=== PATIENT | male | born 1965 | race Caucasian/White ===

== ENCOUNTER 2017-11-22 11:20 | Inpatient (IN) | payer OTHER ==
[~2017-11-22] VITALS: Ht 177.8 cm; Wt 106.5 kg
[2017-11-22] VITALS (17 sets, daily range): BP systolic 102–174; BP diastolic 65–104; PULSE 77–120; RESP 12–24; TEMP 97.2–98; O2SAT 86–100
[~2017-11-22 11:20] MED LIST: ASPI81TA82 PO; MULT-65 PO; PREV15CA20 PO; Z.0.NO CURRENT MEDS
[2017-11-22] MEDS ORDERED: SODIUM CHLOR 0.9% 1000 ML INJ 1,000 ML IV SCH (11:40)
[2017-11-22] MEDS ORDERED: HYDROmorphone HCL PF 2 MG/ML VIAL IVS ONE (11:45)
[2017-11-22] MEDS ORDERED: SODIUM CHLORIDE 0.9% FLUSH 10 ML FLUSH IV FLUSH PRN ×4 (11:45→21:15)
[2017-11-22] MEDS ORDERED: ONDANSETRON ODT 4 MG TAB PO ONE (11:45)
--- NOTE | 2017-11-22 11:54 | PD ---
HPI Chief Complaint: Abdominal Pain Time Seen by Provider: 11:29 Travel History International Travel<30 days: No Contact w/Intl Traveler<30days: No Traveled to known affect area: No History of Present Illness HPI This patient complains of abdominal pain. It started a few weeks ago and is located in the left upper quadrant. He saw his physician for this and it was thought that he had an ulcer. He was going to get a GI referral but that has not happened yet. He has had no imaging. However yesterday the pain became excruciatingly worse. It comes in waves. Symptoms are severe. He has had nausea and vomiting. He had diarrhea yesterday evening. No fever. He has no alcohol or drug history. No history of abdominal surgeries or abdominal problems. No exacerbating factors. No alleviating factors. PFSH Past Medical History Arthritis: Yes Anxiety: No Cancer: No Cardiovascular Problems: No Diabetes: No Diminished Hearing: No Endocrine: No GERD: Yes Genitourinary: No Hypertension: No Immune Disorder: No Musculoskeletal: Yes Neurologic: No Psychiatric: No Reproductive: No Respiratory: No Thyroid Disease: No Past Surgical History Other Surgery: No Social History Alcohol Use: No Tobacco Use: Yes Substance Use: No Allergies-Medications (Allergen,Severity, Reaction): Coded Allergies: No Known Allergies (Unverified Adverse Reaction, Unknown, 11/22/17) Reported Meds & Prescriptions Reported Meds & Active Scripts Active Reported Multiple Vitamin 1 Tab 1 Tab PO DAILY Carafate (Sucralfate) 1 Gram Tab 1 Gm PO QID On empty stomach Hydrochlorothiazide 12.5 Mg Cap 12.5 Mg PO DAILY Protonix (Pantoprazole Sodium) 40 Mg Tab 40 Mg PO DAILY Review of Systems General / Constitutional: No: Fever Eyes: No: Visual changes HENT: No: Headaches Cardiovascular: No: Chest Pain or Discomfort Respiratory: No: Shortness of Breath Gastrointestinal: Positive: Nausea, Vomiting, Diarrhea, Abdominal Pain Genitourinary: No: Dysuria Musculoskeletal: No: Pain Skin: No Rash Neurologic: No: Weakness Psychiatric: No: Depression Endocrine: No: Polydipsia Hematologic/Lymphatic: No: Easy Bruising Physical Exam Narrative GENERAL: Well-nourished, well-developed patient with severe abdominal pain. SKIN: Focused skin assessment reveals no rash and nodules. Skin is Warm and dry. HEAD: Atraumatic. Normocephalic. EYES: Pupils equal and round. No scleral icterus. No injection or drainage. ENT: No nasal bleeding or discharge. Mucous membranes pink and moist. NECK: Trachea midline. No JVD. CARDIOVASCULAR: Regular rate and rhythm. No murmur appreciated. RESPIRATORY: No accessory muscle use. Clear to auscultation. Breath sounds equal bilaterally. GASTROINTESTINAL: Abdomen soft, obese, diffusely tender but worse in the left upper quadrant. hepatic and splenic margins not palpable. MUSCULOSKELETAL: No obvious deformities. No clubbing. No cyanosis. No edema. NEUROLOGICAL: Awake and alert. No obvious cranial nerve deficits. Motor grossly within normal limits. Normal speech. PSYCHIATRIC: Appropriate mood and affect; insight and judgment normal. Data Data Last Documented VS Vital Signs Date Time Temp Pulse Resp B/P (MAP) Pulse Ox O2 Delivery O2 Flow Rate FiO2 11/22/17 13:14 16 11/22/17 12:30 93 138/92 (107) 95 Room Air 11/22/17 11:25 97.2 Orders Orders Complete Blood Count With Diff (11/22/17 11:40) Comprehensive Metabolic Panel (11/22/17 11:40) Lipase (11/22/17 11:40) Prothrombin Time / Inr (Pt) (11/22/17 11:40) Act Partial Throm Time (Ptt) (11/22/17 11:40) Urinalysis - C+S If Indicated (11/22/17 11:40) Ct Abd/Pel W Iv Contrast(Rout) (11/22/17 11:40) Iv Access Insert/Monitor (11/22/17 11:40) Ecg Monitoring (11/22/17 11:40) Oximetry (11/22/17 11:40) NPO (11/22/17 11:40) Hydromorphone Pf Inj (Dilaudid Pf Inj) (11/22/17 11:45) Sodium Chlor 0.9% 1000 Ml Inj (Ns 1000 M (11/22/17 11:40) Sodium Chloride 0.9% Flush (Ns Flush) (11/22/17 11:45) Ondansetron Odt (Zofran Odt) (11/22/17 11:45) Iohexol 350 Inj (Omnipaque 350 Inj) (11/22/17 12:07) Hydromorphone Pf Inj (Dilaudid Pf Inj) (11/22/17 12:30) Lidocaine 2% Viscous (Xylocaine 2% Visco (11/22/17 13:00) Al-Mag Hy-Si 40-40-4 Mg/Ml Liq (Mag-Al P (11/22/17 13:00) Admit Order (Ed Use Only) (11/22/17 13:19) Place In Observation (11/22/17 ) Vital Signs (Adult) Q4H (11/22/17 13:17) Activity Oob Ad Tamika (11/22/17 13:17) Intake + Output KHADAR.QSHIFT (11/22/17 13:17) Diet Clear Liquid (11/22/17 Lunch) Sodium Chlor 0.9% 1000 Ml Inj (Ns 1000 M (11/22/17 13:17) Sodium Chloride 0.9% Flush (Ns Flush) (11/22/17 13:30) Sodium Chloride 0.9% Flush (Ns Flush) (11/22/17 21:00) Metoclopramide Inj (Reglan Inj) (11/22/17 13:30) Comprehensive Metabolic Panel (11/23/17 06:00) Complete Blood Count With Diff (11/23/17 06:00) Scd Bilateral/Knee High KHADAR.BID (11/22/17 13:17) Naloxone Inj (Narcan Inj) (11/22/17 13:30) Docusate Sodium-Senna (Valorie-Colace) (11/22/17 21:00) Magnesium Hydroxide Liq (Milk Of Magnesi (11/22/17 13:30) Sennosides (Senokot) (11/22/17 13:30) Bisacodyl Supp (Dulcolax Supp) (11/22/17 13:30) Lactulose Liq (Lactulose Liq) (11/22/17 13:30) Acetamin-Hydrocod 325-5 Mg ([place] 5-325 (11/22/17 13:30) Acetamin-Hydrocod 325-7.5 Mg ([place] 7.5 (11/22/17 13:30) Morphine Inj (Morphine Inj) (11/22/17 13:30) Consult Gastroenterology (11/22/17 ) Labs Laboratory Tests Test 11/22/17 11:35 White Blood Count 15.2 TH/MM3 Red Blood Count 5.95 MIL/MM3 Hemoglobin 17.8 GM/DL Hematocrit 53.6 % Mean Corpuscular Volume 90.1 FL Mean Corpuscular Hemoglobin 30.0 PG Mean Corpuscular Hemoglobin Concent 33.2 % Red Cell Distribution Width 12.9 % Platelet Count 281 TH/MM3 Mean Platelet Volume 8.1 FL Neutrophils (%) (Auto) 78.7 % Lymphocytes (%) (Auto) 17.2 % Monocytes (%) (Auto) 3.2 % Eosinophils (%) (Auto) 0.1 % Basophils (%) (Auto) 0.8 % Neutrophils # (Auto) 12.0 TH/MM3 Lymphocytes # (Auto) 2.6 TH/MM3 Monocytes # (Auto) 0.5 TH/MM3 Eosinophils # (Auto) 0.0 TH/MM3 Basophils # (Auto) 0.1 TH/MM3 CBC Comment DIFF FINAL Differential Comment Prothrombin Time 10.2 SEC Prothromb Time International Ratio 1.0 RATIO Activated Partial Thromboplast Time 28.2 SEC Blood Urea Nitrogen 10 MG/DL Creatinine 1.10 MG/DL Random Glucose 153 MG/DL Total Protein 8.8 GM/DL Albumin 4.0 GM/DL Calcium Level 9.3 MG/DL Alkaline Phosphatase 85 U/L Aspartate Amino Transf (AST/SGOT) 61 U/L Alanine Aminotransferase (ALT/SGPT) 45 U/L Total Bilirubin 0.5 MG/DL Sodium Level 135 MEQ/L Potassium Level 4.6 MEQ/L Chloride Level 100 MEQ/L Carbon Dioxide Level 23.4 MEQ/L Anion Gap 12 MEQ/L Estimat Glomerular Filtration Rate 71 ML/MIN Lipase 169 U/L [facility] Medical Decision Making Medical Screen Exam Complete: Yes Emergency Medical Condition: Yes Medical Record Reviewed: Yes Differential Diagnosis Perforated ulcer, gastritis, esophagitis, colitis, obstruction Narrative Course I have reviewed the patient's electronic medical record. Patient arrives critically ill. He has severe abdominal pain and very tender and looks consistent with perforated ulcer. IV placed and I gave him injection of Dilaudid and a dose of Zofran 1 L normal saline IV bolus given Lab studies sent He will emergently go for CT of abdomen and pelvis with IV contrast. I am concerned about perforation but it could be many things going on in that abdomen. I thought about flat and upright abdomen x-rays to look for free air but I can obtain a CAT scan in just about the same amount of time. CT scan shows numerous incidental findings but nothing emergent such as perforation or obstruction or appendicitis. He is required multiple doses of IV pain medicine which is only temporary He has leukocytosis but normal metabolic studies and lipase He begged for GI cocktail and I gave him a viscous lidocaine/Maalox combination. He had 10 minutes of complete relief and then the symptoms have returned I have re-viewed with the hospitalist who will do an observation for intractable abdominal pain Diagnosis Primary Impression: Abdominal pain Qualified Codes: R10.12 - Left upper quadrant pain Admitting Information Admitting Physician Requests: Observation Joel Mooney MD Nov 22, 2017 11:54
[2017-11-22 12:01] LABS: BASOPHIL # 0.1 TH/MM3 (0-0.2); BASOPHIL % 0.8 % (0.0-2.0); EOSINOPHIL % 0.1 % (0.0-4.0); HEMATOCRIT 53.6 % (39.0-51.0); HEMOGLOBIN 17.8 GM/DL (13.0-17.0); LYMPH % 17.2 % (9.0-44.0); LYMPHOCYTE # 2.6 TH/MM3 (1.0-4.8); MEAN CELL VOLUME 90.1 FL (80.0-100.0); MEAN CORPUSCULAR HGB CONC 33.2 % (32.0-36.0); MEAN PLATELET VOLUME 8.1 FL (7.0-11.0); MONO % 3.2 % (0.0-8.0); MONOCYTE # 0.5 TH/MM3 (0-0.9); NEUT % 78.7 % (16.0-70.0); PLATELET COUNT 281 TH/MM3 (150-450); RED BLOOD COUNT 5.95 MIL/MM3 (4.50-5.90); RED CELL DISTRIBUTION WIDTH 12.9 % (11.6-17.2); WHITE BLOOD COUNT 15.2 TH/MM3 (4.0-11.0)
[2017-11-22] MEDS ORDERED: PROT40TA PO (12:01)
[2017-11-22] MEDS ORDERED: CARA1TAB6 PO (12:01)
[2017-11-22] MEDS ORDERED: HYDR12.57 PO (12:01)
[2017-11-22] MEDS ORDERED: MULTTAB67 PO (12:02)
[2017-11-22] MEDS ORDERED: IOHEXOL 350 MG/ML 10 ML VIAL (for RAD DIAG) IVCONTRAST ONE (12:07)
[2017-11-22 12:10] LABS: CHLORIDE 100 MEQ/L (98-107); SODIUM (NA) 135 MEQ/L (136-145)
--- NOTE | 2017-11-22 12:12 | RADRPT ---
EXAM DATE: 11/22/2017 12:06 PM EDT AGE/SEX: 52 years / Male INDICATIONS: Left upper quadrant pain. CLINICAL DATA: This is the patient's initial encounter. Patient reports that signs and symptoms have been present for 3 weeks and indicates a pain score of 10/10. MEDICAL/SURGICAL HISTORY: Gastroesophageal reflux disease. Ulcers. . Orthopedic surgery. ORAL CONTRAST: No oral contrast ingested. RADIATION DOSE: 21.23 CTDI (mGy) COMPARISON: [facility], CT ABDOMEN & PELVIS W CONTRAST, 07/25/2012. [facility], CT THORAX W CONTRAST, 07/25/2012. . TECHNIQUE: Multiple contiguous axial images were obtained through the abdomen and pelvis following b olus infusion of 95 ml Omnipaque 350 (iohexol) nonionic water-soluble contrast as a single exam dos e. No oral contrast ingested. Using automated exposure control and adjustment of the mA and/or kV ac cording to patient size, the radiation dose was kept as low as reasonably achievable to obtain optima l diagnostic quality images. FINDINGS: There is a stable noncalcified nodule in the right middle lobe, and stable right lower lobe noncalcif ied nodules. No pleural effusions are identified. There is calcification of the left ventricular apex characteristic of old calcified infarct. There is diffuse hepatic steatosis and hepatomegaly. Gallbl adder, spleen, pancreas, adrenal glands are unremarkable. Left kidney unremarkable. There is scarring of the right mid pole kidney with a 1.5 cm calyceal diverticulum containing 2 calculi measuring up t o 4.4 mm. There is an exophytic cyst at the upper pole of the right kidney measuring 3.7 cm. Atherosc lerotic calcification of the aorta and iliac vessels are noted. Urinary bladder and prostate are unre markable. No evidence for bowel obstruction. No free fluid or free air. The appendix is normal. No ad enopathy or aneurysm. Osseous structures are intact. CONCLUSION: 1. Hepatomegaly and hepatic steatosis. 2. Nonobstructing right renal calculi, renal scarring and cysts. 3. Atherosclerosis. 4. Long-term stable tiny right lung nodules unchanged to 2012 characteristic of benign process. 5. Calcified left ventricular apical infarct. Electronically signed by: Davey Gonzalez MD 11/22/2017 12:10 PM EDT
[2017-11-22 12:14] LABS: BICARBONATE 23.4 MEQ/L (21.0-32.0); CALCIUM 9.3 MG/DL (8.5-10.1); PROTHROMBIN TIME - PATIENT 10.2 SEC (9.8-11.6)
[2017-11-22 12:15] LABS: BLOOD UREA NITROGEN 10 MG/DL (7-18); GLUCOSE,RANDOM 153 MG/DL (74-106)
[2017-11-22 12:17] LABS: ALT (GPT) 45 U/L (12-78); AST (GOT) 61 U/L (15-37); GLOMERULAR FILTRATION RATE 71 ML/MIN (>89)
[2017-11-22 12:19] LABS: TOTAL BILIRUBIN ADULT 0.5 MG/DL (0.2-1.0); TOTAL PROTEIN 8.8 GM/DL (6.4-8.2)
[2017-11-22 12:20] LABS: ALKALINE PHOSPHATASE 85 U/L (45-117)
[2017-11-22] MEDS ORDERED: HYDROmorphone HCL PF 2 MG/ML VIAL IVP ONE (12:30)
[2017-11-22] MEDS ORDERED: ALUMINUM/MAGNESIUM/SIMETH 30 ML CUP PO ONE (13:00)
[2017-11-22] MEDS ORDERED: LIDOCAINE VISCOUS 2% SOLN 15 ML UDC PO ONE (13:00)
[2017-11-22] MEDS ORDERED: LACTULOSE SYRUP 20 GM/30 ML CUP PO PRN (13:30)
[2017-11-22] MEDS ORDERED: MAGNESIUM HYDROXIDE SUSP 30 ML CUP PO PRN (13:30)
[2017-11-22] MEDS ORDERED: SENNOSIDES 8.6 MG TAB PO PRN (13:30)
[2017-11-22] MEDS ORDERED: ACETAMINOPHEN/HYDROcodone 325 MG/5 MG TAB PO PRN (13:30)
[2017-11-22] MEDS ORDERED: NALOXONE HCL 0.4 MG/ML AMP IV PUSH PRN (13:30)
[2017-11-22] MEDS ORDERED: BISACODYL 10 MG SUPP RECTAL PRN (13:30)
[2017-11-22] MEDS ORDERED: METOCLOPRAMIDE HCL 10 MG/2 ML VIAL IV PUSH PRN (13:30)
[2017-11-22] MEDS: ACETAMINOPHEN/HYDROcodone 325 MG/7.5 MG TAB PO PRN (14:19)
[2017-11-22] MEDS: MORPHINE SULFATE 4 MG/ML INJ IV PUSH PRN ×2 (14:19→16:40)
[2017-11-22] MEDS: PANTOPRAZOLE SOD 40 MG DELAYED RELEASE TAB PO SCH (14:20)
[2017-11-22] MEDS: SODIUM CHLOR 0.9% 1000 ML INJ 1,000 ML IV SCH ×2 (14:20→20:15)
[2017-11-22 14:31] LABS: BILIRUBIN, URINE NEG (NEG); BLOOD, URINE TRACE (NEG); GLUCOSE,URINE NEG (NEG); KETONE, URINE NEG (NEG); NITRITE,URINE NEG (NEG); URINE COLOR YELLOW (YELLW/STRAW); URINE LEUKOCYTE ESTERASE NEG (NEG)
[2017-11-22 14:37] LABS: RBC, URINE 0-3 /hpf (0-3); SQUAMOUS EPITHELIAL CELL URINE 0-5 /hpf (0-5)
--- NOTE | 2017-11-22 15:23 | HHI.HP ---
[facility] No Primary Care Physician Admission Diagnosis intract abd pain Diagnoses: Travel History International Travel<30 Days: No Contact w/Intl Traveler <30 Da: No Traveled to Known Affected Are: No History of Present Illness Pt is a 52 yr old male w PMHx HTN presents to the ED w complains of severe abdominal for the past 2 days. Pt states that he has been having abdominal pain which started about 2 months ago. 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 He is concerned about having a stress ulcer. He has been taking protonix, pepcid and multiple doses (96) of tums and sulcrafate. His friend who is a PA prescribed him the protonix. He describes the pain is in his stomach as burning sensation, goes up his chest, 9/10, feels like he is being "hit w a sludge hammer" in both chest and stomach. Admits to 20 lbs weight loss, dysphasia w solids only, nausea but no vomiting. Hasn't seen a GI physician. Pt states his pain is so bad that he cannot walk from the room to the bathroom, he states that he feels the reflux up his throat and has a very nasty taste in his mouth. He is unable to eat solids due to pain. He cannot lay flat because the pain gets worst. No fevers/chills, cough, burning w urination. Review of Systems Except as stated in HPI: all other systems reviewed are Neg Past Family Social History Past Medical History HTN prior hx of rectal fissure Past Surgical History B arthroscopic knee sx anal fissure repair Reported Medications Reported Meds & Active Scripts Active Reported Multiple Vitamin 1 Tab 1 Tab PO DAILY Carafate (Sucralfate) 1 Gram Tab 1 Gm PO QID On empty stomach Hydrochlorothiazide 12.5 Mg Cap 12.5 Mg PO DAILY Protonix (Pantoprazole Sodium) 40 Mg Tab 40 Mg PO DAILY Allergies: Coded Allergies: No Known Allergies (Unverified Allergy, Unknown, 11/22/17) Family History mother had HI at age 40 and 60 and . Had also renal disease and DM father healthy Social History quit smoking a few months ago, smoke 3ppd for many years denies any illegal drug use or alcohol use Physical Exam Vital Signs Vital Signs Date Time Temp Pulse Resp B/P (MAP) Pulse Ox O2 Delivery O2 Flow Rate FiO2 11/22/17 14:41 11/22/17 14:28 16 11/22/17 14:15 97 20 142/100 (114) 96 11/22/17 13:43 77 16 128/77 (94) 98 11/22/17 13:14 16 11/22/17 13:14 16 11/22/17 13:13 97 18 146/102 (117) 98 11/22/17 12:30 93 20 138/92 (107) 95 Room Air 11/22/17 12:18 103 20 154/104 (121) 98 Room Air 11/22/17 11:45 20 97 Room Air 11/22/17 11:25 97.2 110 24 174/98 (123) 100 Physical Exam GENERAL: laying in bed, appears uncomfortable SKIN: No rashes, ecchymoses or lesions. Cool and dry. HEAD: Atraumatic. Normocephalic. No temporal or scalp tenderness. EYES: Extraocular motions intact. ENT: Nose without drainage. Airway patent. NECK: Trachea midline. CARDIOVASCULAR: Regular rate and rhythm without murmurs RESPIRATORY: Clear to auscultation. Breath sounds equal bilaterally. No wheezes GASTROINTESTINAL: Abdomen soft, tender in the RUQ and LUQ and epigastric area, some voluntary guarding but no rebound, nondistended. MUSCULOSKELETAL: Extremities with 1+ pitting edema at the ankles. No calf tenderness. Negative Homans sign bilaterally. NEUROLOGICAL: Awake and alert. Moves extremities. Normal speech. Laboratory Laboratory Tests Test 11/22/17 11:35 11/22/17 14:08 White Blood Count 15.2 Red Blood Count 5.95 Hemoglobin 17.8 Hematocrit 53.6 Mean Corpuscular Volume 90.1 Mean Corpuscular Hemoglobin 30.0 Mean Corpuscular Hemoglobin Concent 33.2 Red Cell Distribution Width 12.9 Platelet Count 281 Mean Platelet Volume 8.1 Neutrophils (%) (Auto) 78.7 Lymphocytes (%) (Auto) 17.2 Monocytes (%) (Auto) 3.2 Eosinophils (%) (Auto) 0.1 Basophils (%) (Auto) 0.8 Neutrophils # (Auto) 12.0 Lymphocytes # (Auto) 2.6 Monocytes # (Auto) 0.5 Eosinophils # (Auto) 0.0 Basophils # (Auto) 0.1 CBC Comment DIFF FINAL Differential Comment Prothrombin Time 10.2 Prothromb Time International Ratio 1.0 Activated Partial Thromboplast Time 28.2 Blood Urea Nitrogen 10 Creatinine 1.10 Random Glucose 153 Total Protein 8.8 Albumin 4.0 Calcium Level 9.3 Alkaline Phosphatase 85 Aspartate Amino Transf (AST/SGOT) 61 Alanine Aminotransferase (ALT/SGPT) 45 Total Bilirubin 0.5 Sodium Level 135 Potassium Level 4.6 Chloride Level 100 Carbon Dioxide Level 23.4 Anion Gap 12 Estimat Glomerular Filtration Rate 71 Lipase 169 Urine Collection Type CLEAN CATCH Urine Color YELLOW Urine Turbidity CLEAR Urine pH 7.0 Urine Specific [place] LESS/EQUAL 1.005 Urine Protein NEG Urine Glucose (UA) NEG Urine Ketones NEG Urine Occult Blood TRACE Urine Nitrite NEG Urine Bilirubin NEG Urine Urobilinogen 0.2 Urine Leukocyte Esterase NEG Urine RBC 0-3 Urine Squamous Epithelial Cells 0-5 Microscopic Urinalysis Comment CULT NOT INDICATED Result Diagram: 11/22/17 1135 11/22/17 1135 Imaging Last Impressions Abdomen/Pelvis CT 11/22/17 1140 Signed Impressions: CONCLUSION: 1. Hepatomegaly and hepatic steatosis. 2. Nonobstructing right renal calculi, renal scarring and cysts. 3. Atherosclerosis. 4. Long-term stable tiny right lung nodules unchanged to 2013 characteristic o f benign process. 5. Calcified left ventricular apical infarct. Caprini VTE Risk Assessment Caprini VTE Risk Assessment: No/Low Risk (score <= 1) Caprini Risk Assessment Model Point Value = 1 Point Value = 2 Point Value = 3 Point Value = 5 Age 41-60 Minor surgery BMI > 25 kg/m2 Swollen legs Varicose veins or History of unexplained or recurrent spontaneous Oral contraceptives or hormone replacement Sepsis (< 1 month) Serious lung disease, including pneumonia (< 1 month) Abnormal pulmonary function Acute myocardial infarction Congestive heart failure (< 1 month) History of inflammatory bowel disease Medical patient at bed rest Age 61-74 Arthroscopic surgery Major open surgery (> 45 min) Laparoscopic surgery (> 45 min) Malignancy Confined to bed (> 72 hours) Immobilizing plaster cast Central venous access Age >= 75 History of VTE Family history of VTE Factor V Leiden Prothrombin [id number] Lupus anticoagulant Anticardiolipin antibodies Elevated serum homocysteine Heparin-induced thrombocytopenia Other congenital or acquired thrombophilia Stroke (< 1 month) Elective arthroplasty Hip, pelvis, or leg fracture Acute spinal cord injury (< 1 month) Prophylaxis Regimen Total Risk Factor Score Risk Level Prophylaxis Regimen 0-1 Low Early ambulation 2 Moderate Order ONE of the following: *Sequential Compression Device (SCD) *Heparin 5000 units SQ BID 3-4 Higher Order ONE of the following medications: *Heparin 5000 units SQ TID *Enoxaparin/Lovenox 40 mg SQ daily (WT < 150 kg, CrCl > 30 mL/min) *Enoxaparin/Lovenox 30 mg SQ daily (WT < 150 kg, CrCl > 10-29 mL/min) *Enoxaparin/Lovenox 30 mg SQ BID (WT < 150 kg, CrCl > 30 mL/min) AND/OR *Sequential Compression Device (SCD) 5 or more Highest Order ONE of the following medications: *Heparin 5000 units SQ TID (Preferred with Epidurals) *Enoxaparin/Lovenox 40 mg SQ daily (WT < 150 kg, CrCl > 30 mL/min) *Enoxaparin/Lovenox 30 mg SQ daily (WT < 150 kg, CrCl > 10-29 mL/min) *Enoxaparin/Lovenox 30 mg SQ BID (WT < 150 kg, CrCl > 30 mL/min) AND *Sequential Compression Device (SCD) Assessment and Plan Assessment and Plan STEMI/Abdominal pain: worsening the past 2 days although has been present x 2 months. Pt was prescribed protonix by a PA friend and this brought some relief but relief doesn't last. Has been taking tums in large quantities, pepcid and sucralfate. Pt has been under a lot of stress. Pain is relieved by food per pt however his appetite is poor as he cannot swallow solids. GI consult initially placed. Suspecting peptic ulcer vs duodenal ulcer vs severe GERD vs ACS. Will be cautious and r/o ACS as pt's family hx is positive for his mother having her fist HI at age 40, and he has HTN/smoker. Serial CE were ordered. First troponin came back at 3.21 and RN notified me immediately. EKG reviewed and showed mild elevations in lead V1-V2. Stat consult to cardiology, Dr. Eduardo, was placed and he was notified. He requested that pt be transferred immediately to the main hospital for cardiac cath. Give stat nitroglycerin SL and continue w nitropaste q6hrs, will start him on heparin gtt w bolus, ASA and BB. continue morphine as needed for chest pain. HTN: Pt takes HCTZ at home, hold for now, start him on lisinopril 10mg po daily in lieu of STEMI. Vasotec prn DVT proph: heparin Code Status full Discussed Condition With patient and ER physician Wanda Youngblood MD Nov 22, 2017 15:23
[2017-11-22] MEDS ORDERED: SUCRALFATE 1 GM/10 ML CUP PO ONE (16:00)
[2017-11-22 16:01] LABS: TROPONIN I 3.21 NG/ML (0.02-0.05)
[2017-11-22] MEDS ORDERED: ASPIRIN 325 MG TAB PO ONE (16:15)
[2017-11-22] MEDS ORDERED: NITROGLYCERIN 0.4 MG SL 25 TABS/BTL SL ONE (16:15)
[2017-11-22] MEDS ORDERED: HEPARIN-D5W 25,000 U/250 ML 250 ML IV PRN (16:15)
[2017-11-22] MEDS ORDERED: HEPARIN SODIUM - IV 10,000 UNITS/10 ML VIAL IV PUSH ONE (16:15)
[2017-11-22] MEDS: NITROGLYCERIN 0.4 MG SL 25 TABS/BTL SL PRN ×2 (16:25→16:36)
[2017-11-22] MEDS ORDERED: ENALAPRILAT 1.25 MG/ML VIAL IV PUSH PRN (16:30)
[2017-11-22] MEDS ORDERED: MORPHINE SULFATE 4 MG/ML INJ IM ONE (16:30)
[2017-11-22 16:33] LABS: HEMATOCRIT 51.7 % (39.0-51.0); HEMOGLOBIN 17.1 GM/DL (13.0-17.0); MEAN CELL VOLUME 89.7 FL (80.0-100.0); MEAN CORPUSCULAR HEMOGLOBIN 29.6 PG (27.0-34.0); MEAN PLATELET VOLUME 7.8 FL (7.0-11.0); PLATELET COUNT 237 TH/MM3 (150-450); RED BLOOD COUNT 5.76 MIL/MM3 (4.50-5.90); WHITE BLOOD COUNT 16.8 TH/MM3 (4.0-11.0)
[2017-11-22 16:49] LABS: INTERNATIONAL NORMALIZED RATIO 1.1 RATIO; PROTHROMBIN TIME - PATIENT 10.7 SEC (9.8-11.6)
[2017-11-22] MEDS ORDERED: NITROGLYCERIN 2% OINT 1 GM PACKET TOPICAL ONE (17:30)
[2017-11-22] MEDS ORDERED: MORPHINE SULFATE 4 MG/ML INJ IV PUSH ONE (17:30)
[2017-11-22] MEDS ORDERED: NITROGLYCERIN-D5W 50 MG/250 ML 250 ML IV PRN (17:45)
--- NOTE | 2017-11-22 17:45 | PD ---
Physical Exam Narrative I was asked by Dr. Klein to help stabilize the patient prior to Data Manager. Patient was seen at [place] emergency room and admitted for abdominal pain. EKG shows ST elevation in anterior leads. Cardiac enzymes elevated. STEMI alert was called. Patient was transferred emergently to the [facility] for Data Manager. Dr. Eduardo accepted the transfer. Patient arrived to the emergency room waiting for Data Manager to be ready. There is another patient in cardiac cath lab radiology technologist right now. I gave patient morphine IV, nitro drip to control the chest pain and abdominal pain. Vital signs stable. Patient awaiting Data Manager. Repeat EKG shows sinus rhythm with mild ST elevation anterior leads. Data Data Last Documented VS Vital Signs Date Time Temp Pulse Resp B/P (MAP) Pulse Ox O2 Delivery O2 Flow Rate FiO2 11/22/17 13:14 16 11/22/17 13:13 97 146/102 (117) 98 11/22/17 12:30 Room Air 11/22/17 11:25 97.2 Orders Orders Complete Blood Count With Diff (11/22/17 11:40) Comprehensive Metabolic Panel (11/22/17 11:40) Lipase (11/22/17 11:40) Prothrombin Time / Inr (Pt) (11/22/17 11:40) Act Partial Throm Time (Ptt) (11/22/17 11:40) Urinalysis - C+S If Indicated (11/22/17 11:40) Ct Abd/Pel W Iv Contrast(Rout) (11/22/17 11:40) Iv Access Insert/Monitor (11/22/17 11:40) Ecg Monitoring (11/22/17 11:40) Oximetry (11/22/17 11:40) NPO (11/22/17 11:40) Hydromorphone Pf Inj (Dilaudid Pf Inj) (11/22/17 11:45) Sodium Chlor 0.9% 1000 Ml Inj (Ns 1000 M (11/22/17 11:40) Sodium Chloride 0.9% Flush (Ns Flush) (11/22/17 11:45) Ondansetron Odt (Zofran Odt) (11/22/17 11:45) Iohexol 350 Inj (Omnipaque 350 Inj) (11/22/17 12:07) Hydromorphone Pf Inj (Dilaudid Pf Inj) (11/22/17 12:30) Lidocaine 2% Viscous (Xylocaine 2% Visco (11/22/17 13:00) Al-Mag Hy-Si 40-40-4 Mg/Ml Liq (Mag-Al P (11/22/17 13:00) Admit Order (Ed Use Only) (11/22/17 13:19) Place In Observation (11/22/17 ) Vital Signs (Adult) Q4H (11/22/17 13:17) Activity Oob Ad Tamika (11/22/17 13:17) Intake + Output KHDAAR.QSHIFT (11/22/17 13:17) Diet Clear Liquid (11/22/17 Lunch) Sodium Chlor 0.9% 1000 Ml Inj (Ns 1000 M (11/22/17 14:00) Sodium Chloride 0.9% Flush (Ns Flush) (11/22/17 13:30) Sodium Chloride 0.9% Flush (Ns Flush) (11/22/17 21:00) Metoclopramide Inj (Reglan Inj) (11/22/17 13:30) Comprehensive Metabolic Panel (11/23/17 06:00) Complete Blood Count With Diff (11/23/17 06:00) Scd Bilateral/Knee High KHADAR.BID (11/22/17 13:17) Naloxone Inj (Narcan Inj) (11/22/17 13:30) Docusate Sodium-Senna (Valorie-Colace) (11/22/17 21:00) Magnesium Hydroxide Liq (Milk Of Magnesi (11/22/17 13:30) Sennosides (Senokot) (11/22/17 13:30) Bisacodyl Supp (Dulcolax Supp) (11/22/17 13:30) Lactulose Liq (Lactulose Liq) (11/22/17 13:30) Acetamin-Hydrocod 325-5 Mg ([place] 5-325 (11/22/17 13:30) Acetamin-Hydrocod 325-7.5 Mg ([place] 7.5 (11/22/17 13:30) Consult Gastroenterology (11/22/17 ) Pantoprazole (Protonix) (11/22/17 13:30) Morphine Inj (Morphine Inj) (11/22/17 13:30) Labs Laboratory Tests Test 11/22/17 11:35 White Blood Count 15.2 TH/MM3 Red Blood Count 5.95 MIL/MM3 Hemoglobin 17.8 GM/DL Hematocrit 53.6 % Mean Corpuscular Volume 90.1 FL Mean Corpuscular Hemoglobin 30.0 PG Mean Corpuscular Hemoglobin Concent 33.2 % Red Cell Distribution Width 12.9 % Platelet Count 281 TH/MM3 Mean Platelet Volume 8.1 FL Neutrophils (%) (Auto) 78.7 % Lymphocytes (%) (Auto) 17.2 % Monocytes (%) (Auto) 3.2 % Eosinophils (%) (Auto) 0.1 % Basophils (%) (Auto) 0.8 % Neutrophils # (Auto) 12.0 TH/MM3 Lymphocytes # (Auto) 2.6 TH/MM3 Monocytes # (Auto) 0.5 TH/MM3 Eosinophils # (Auto) 0.0 TH/MM3 Basophils # (Auto) 0.1 TH/MM3 CBC Comment DIFF FINAL Differential Comment Prothrombin Time 10.2 SEC Prothromb Time International Ratio 1.0 RATIO Activated Partial Thromboplast Time 28.2 SEC Blood Urea Nitrogen 10 MG/DL Creatinine 1.10 MG/DL Random Glucose 153 MG/DL Total Protein 8.8 GM/DL Albumin 4.0 GM/DL Calcium Level 9.3 MG/DL Alkaline Phosphatase 85 U/L Aspartate Amino Transf (AST/SGOT) 61 U/L Alanine Aminotransferase (ALT/SGPT) 45 U/L Total Bilirubin 0.5 MG/DL Sodium Level 135 MEQ/L Potassium Level 4.6 MEQ/L Chloride Level 100 MEQ/L Carbon Dioxide Level 23.4 MEQ/L Anion Gap 12 MEQ/L Estimat Glomerular Filtration Rate 71 ML/MIN Lipase 169 U/L [facility] Supervised Visit with LIO: No Diagnosis Primary Impression: Abdominal pain Qualified Codes: R10.12 - Left upper quadrant pain Additional Impression: STEMI (ST elevation myocardial infarction) Qualified Codes: I21.02 - ST elevation (STEMI) myocardial infarction involving left anterior descending coronary artery Admitting Information Admitting Physician Requests: it Larry Aguirre MD Nov 22, 2017 17:45
[2017-11-22] MEDS ORDERED: NITROGLYCERIN-D5W 50 MG/250 ML 250 ML ONE (17:47)
[2017-11-22] MEDS: NITROGLYCERIN 2% OINT 1 GM PACKET TOPICAL SCH (18:00)
[2017-11-22] MEDS ORDERED: HEPARIN-NS/PF INJ 500 ML ONE (20:09)
[2017-11-22] MEDS ORDERED: HEPARIN SODIUM - IV 10,000 UNITS/10 ML VIAL ONE (20:10)
[2017-11-22] MEDS ORDERED: MIDAZOLAM HCL 2 MG/2 ML VIAL ONE (20:10)
[2017-11-22] MEDS: SODIUM CHLORIDE 0.9% FLUSH 10 ML FLUSH IV FLUSH SCH (20:10)
[2017-11-22] MEDS ORDERED: ONDANSETRON HCL 4 MG/2 ML VIAL ONE (20:13)
[2017-11-22] MEDS ORDERED: CARVEDILOL 6.25 MG TAB PO SCH (21:00)
[2017-11-22] MEDS ORDERED: SODIUM CHLORIDE 0.9% FLUSH 10 ML FLUSH IV FLUSH SCH (21:00)
[2017-11-22] MEDS ORDERED: MISC INFORMATION XX ONE ×2 (21:00→21:15)
--- NOTE | 2017-11-22 21:06 | MB ---
cc: Jack Eduardo MD, Arthur W MD DATE: 11/22/2017 HISTORY OF PRESENT ILLNESS: Dougie is a very pleasant 52-year-old gentleman who has been having chest pain intermittently for the last 2 weeks. About 8 o'clock this morning, he had a severe unremitting chest pain and abdominal pain and presented to the [facility]. I was called at approximately 4:03 p.m., as the patient's troponins first were elevated. He did not meet criteria for STEMI, but due to his ongoing chest pain, plan was for him to be transferred urgently to [facility] for urgent left heart catheterization. 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 He otherwise denies any fevers, chills, cough, GI or bleeding. He does have nausea and vomiting. He notes his chest pain is severe. PAST MEDICAL HISTORY: Includes arthritis. SOCIAL HISTORY: Denies alcohol use. Does smoke. ALLERGIES: NONE. MEDICATIONS PRIOR TO ADMISSION: 1. Multivitamins. 2. Carafate. 3. Hydrochlorothiazide 12.5 daily. 4. Protonix 40 mg daily. MEDICATIONS IN THE HOSPITAL: 1. Aspirin 325 daily. 2. Lisinopril 10 mg daily. 3. Heparin bolus and drip 4. Coreg 6.25 q 12 hrs. 5. Atorvastatin 20 at bedtime 6. Half inch nitro paste q.6 hours. 7. Nitroglycerin drip. PHYSICAL EXAMINATION: VITAL SIGNS: Blood pressure 143/93, pulse 100, respiratory rate 17, temperature 97.9. GENERAL: He is alert and oriented x3, in moderate distress. NECK: Supple. No JVD. No bruit. CARDIOVASCULAR: S1, S2. No murmurs, rubs, gallops. LUNGS: Clear to auscultation bilaterally. ABDOMEN: Soft, nontender, nondistended, positive bowel sounds. EXTREMITIES: No lower extremity edema. LABORATORY DATA: White count 16.8, hemoglobin 17.1, hematocrit 51.7, and platelet count 237. Sodium 135, potassium 4.6, chloride 100, bicarbonate 23.4, BUN 10, creatinine 1.10, AST 61, ALT 45, troponin 3.21. Total CK 232, CK-MB 50.4. INR is 1.1. IMAGING STUDIES: Abdominal and pelvic CT: Hepatomegaly and hepatic steatosis, nonobstructing right renal calculi, renal scarring and cysts, "atherosclerosis", long-term stable tiny right lung nodules unchanged since 2013 characteristic of benign process, calcified left ventricular apical infarct. CARDIOLOGY STUDIES: EKG shows anteroseptal Q-waves, normal sinus rhythm at 89 beats per minute, nonspecific ST-T wave changes, [address] segment elevation in lead V1, V2, V3, T-wave inversions in lead I and aVL. DIAGNOSES: 1. Subacute myocardial infarction. 2. Non-ST elevation myocardial infarction. 3. Hepatic steatosis. 4. "Calcified left ventricular apical infarct". 5. Tobacco abuse. 6. Polycythemia. 7. Elevated white count. 8. Hyponatremia. 9. Elevated liver enzymes. 10. Hyperglycemia. DISCUSSION: The patient has been appropriately treated with aspirin, IV nitro, IV heparin, Coreg and statin. He is having ongoing chest pain and abdominal pain; therefore urgent left heart catheterization is medically necessary. Based on his history and his EKG and apical infarct on the CT, this appears to be at least a subacute presentation. Anticipate a difficult intervention due to the high likelihood of organized thrombus. Further recommendations based on the details of his coronary anatomy and strongly recommend smoking cessation. MD TAHMINA Yung/ , 08:13 PM , 09:05 PM
--- NOTE | 2017-11-22 21:29 | MR ---
cc: Jack Eduardo MD, Arthur W MD DATE: 11/22/2017 Left heart catheterization, left ventriculography, coronary angiography, aortic root angiography, right femoral artery angiography and intraaortic balloon placement. INDICATIONS FOR PROCEDURE: Non-STEMI, coronary artery disease, decompensated congestive heart failure. PROCEDURAL STATEMENT: The patient was brought to the cardiac catheterization laboratory, prepped and draped in the usual sterile fashion. 10 mL of 1% lidocaine was used to locally anesthetize the right common femoral artery. A 4-Paraguayan sheath placed in right femoral artery, 4-Paraguayan JR4 and JL5 catheters were used to perform left angiography and coronary angiography. FINDINGS: LV pressure is 120/40/42. The apex is severely hypokinetic to akinetic. Wall motion is preserved at the bases of the anterior wall and the posterior wall and the mid inferior wall and the mid anterior wall, although they do appear to be probably at least mild to moderately hypokinetic. Overall, ejection fraction is probably 25-30%. The right coronary artery is a large dominant vessel with a long 90% ostial proximal stenosis. There is dampening of the pressure waveform with a 4-Paraguayan catheter in the ostium of the right coronary artery by about 30-40 mmHg. There then is at least moderate diffuse disease in the proximal mid segment up to 50% angiographically. The mid segment has a 75% stenosis, distal right coronary artery has a 40% stenosis. The reference vessel diameter of the right coronary artery is at least 3.5 to 4 mm in the distal segment. The right PDA has a proximal to mid 60% stenosis. It is a 3.5 mm vessel. The right posterolateral artery has no significant disease angiographically. The left main coronary artery has a hazy distal 95% stenosis. The LAD is occluded after the first septal emulsification operator vessel. The left circ has mild disease in the ostial segment up to 20% angiographically. It gives off a large first obtuse marginal vessel, which itself has a proximal 75% stenosis. It then bifurcates into 2 branches with the medial branch being probably 3.25 mm in diameter. No significant disease. The more lateral branch being 3 mm in diameter with mild to moderate ostial proximal disease up to 30-40% angiographically. The remainder of the AV groove left circumflex vessel has no significant disease angiographically. Fluoroscopic imaging on the right femoral artery by angiography reveals no significant femoral artery stenosis. Aortic root angiography reveals no aortic valve regurgitation and normal appearing size of the ascending aorta with no evidence of dissection. CONCLUSION: 1. Critical left main and ostial proximal right coronary artery disease as detailed above. 2. Critically elevated left ventricular end diastolic pressure equal to 42 mmHg with ejection fraction of 25-30% as detailed above. 3. Normal appearing aortic root with no evidence of aortic insufficiency. 4. Normal appearing right femoral artery. 5. Successful placement of an intraaortic balloon pump set at 1:1 with immediate resolution of the patient's chest pain and dyspnea and improvement in hemodynamics. MD TAHMINA Yung/ , 08:55 PM , 09:28 PM
--- NOTE | 2017-11-22 21:37 | CATHPROC ---
[facility] [employer] HIS Report Study Information Study Number Admission Scheduled Start Study Start [id number] Nov 22 2017 1:38PM 11/22/2017 Nov 22 2017 5:25PM [facility] Cardiac Catheterization Admit Source Facility Department Emergency department [facility] - E Commerce Architect Physician and Clinical Staff Initial Jack Gilmore Body Make Up Artist Uma Stiles,JACY Body Make Up Artist Mariya Whitt,JACY Recorder Rosa Isela Clayton ,RT(R) ScrMimi Kenny,RT(R) Procedures Performed Procedure Location (Site) Vessel Name Angiogram LV LV Ventricle Coronary Angiograms LCA Left Coronary Coronary Angiograms RCA Right Coronary IABP Fem Art (right) Femoral Art L Heart Cath LV Gram-hand inj. LV LV Ventricle Wire insertion Fem Art (right) Femoral Art Equipment Time Qualitative Field Project Manager Description Size Mfg Part Number Used/Scraped TRANSDUCER, TRUWAVE [id number] 19:46 DORAN CANALES * Used W/STOCKCOCK *[id number] [id number] *[id number] [id number] *[id number] *[id number] *[id number] BALLOON, FR8 50CC SENSATION [id number] 20:33 MAQUET FR 8 50CC Used PLUS 01U *[id number] 19:46 [employer] BLANKET,WARM AIR CCL * Used *[id number] 19:46 [employer] PACK, CCL CUSTOM * Used *[id number] 19:46 [employer] PACER PEN, SKIN DUAL W/ RULER * Used *[id number] 20:36 [employer] MEDICAL SHEATH, FR6.5 PRELUDE 11CM FR 6.5 038ACT Used *[id number] 19:46 [employer] MEDICAL WIRE, 3MMJ .035 180CM 180CM Used *[id number] 19:46 NAMIC MANIFOLD, 4 PORT * Used *[id number] 19:46 [employer]COMED OMNIPAQUE, 350 MG, 150ML 150ML [id number] Used [id number] 19:46 TERUMO MEDICAL SHEATH, FR4 TERUMO (10CM) FR 4 Used *[id number] Equipment Model, Serial, Lot Number and Expiration Data Description Model Number Serial Number Lot Number Expiration Date SHEATH, FR6.5 PRELUDE 11CM [id number] 09-13-2020 History: Allergies Allergy Reaction No Known Allergies History: Risk Factors Family History of Hypertension Dyslipidemia Previous OH Previous Heart Failure Premature CAD No No Yes No No Prior Valve Prior PCI Prior CABG Surgery No No No Cerebrovascular Peripheral Artery Chronic Lung On Dialysis Diabetes Disease Disease Disease No No No No No History: Stress Tests Stress or Imaging Studies Performed No History: Other Current Smoker Yes Labs Hgb (g/dl) Hct (%) RBC (MIL/MM3) WBC (l/cumm) Platelets (thousands) 11.60-17.00 35.00-51.00 4.00-5.90 4.00-11.00 150.00-450.00 17.8 53.6 5.9 15.2 281 Glucose (mg/dl) BUN (mg/dl) Creatinine (mg/dl) BUN:Creatinine (1:x) 74.00-106.00 7.00-18.00 0.50-1.30 10.00-20.00 153 10 1.1 9.1 Na (meq/l) K (meq/l) 136.00-145.00 3.50-5.10 135 4.6 INR (PTT:PT) 0.90-1.10 1 Medication Medication Total Dose (Bolus/Oral) Medication Total Dosage/Unit 1% XYLOCAINE 20 mL FENTANYL 75 mcg HEPARIN 8000 units VERSED 1 mg ZOFRAN 4 mg Medications (Bolus/Oral) Medication Time Given Dosage/Unit Administered By Reason ZOFRAN 11/22/2017 8:13:00 PM 4 mg Uma Stiles 4 mg ZOFRAN given in lab by Uma Stiles, JACY via Central IV. Ordered by Jack Eduardo. VERSED 11/22/2017 8:14:00 PM 1 mg Uma Stiles 1 mg VERSED given in lab by Uma Stiles, RN in Left Antecubital via Peripheral IV. Ordered by Jack Martínez. FENTANYL 11/22/2017 8:15:00 PM 25 mcg Uma Stiles 25 mcg FENTANYL given in lab by Uma Stiles, JACY in Right Antecubital via Peripheral IV. Ordered b y Jack Eduardo. 1% XYLOCAINE 11/22/2017 8:18:18 PM 20 mL Jack Eduardo 20 mL 1% XYLOCAINE given in lab by Jack Eduardo in Right Groin via Subcutaneous. Ordered by Jack Black. HEPARIN 11/22/2017 8:31:00 PM 4000 units Uma Stiles 4000 units HEPARIN given in lab by Uma Stiles, JACY via Peripheral IV. Ordered by Jack Eduardo . FENTANYL 11/22/2017 8:37:51 PM 25 mcg Uma Stiles 25 mcg FENTANYL given in lab by Uma Stiles RN in Right Antecubital via Peripheral IV. Ordered joseluis y Jack Eduardo. FENTANYL 11/22/2017 8:41:00 PM 25 mcg Uma Stiles 25 mcg FENTANYL given in lab by Uma Stiles RN in Right Antecubital via Peripheral IV. Ordered Jack Fried. HEPARIN 11/22/2017 8:54:58 PM 4000 units Mariya Whitt 4000 units HEPARIN given in lab by Mariya Whitt RN via Peripheral IV. Ordered by Jack Eduardo. Medication (Drip) Medication Time Given Dosage/Unit Concentration/Unit Diluent (ml) Solution HEPARIN DRIP 11/22/2017 8:34:00 PM 1000 units/hr 03366 units 250 D5W 1000 units/hr HEPARIN DRIP given in lab by Uma Stiles RN via Peripheral IV. Pump/Drip Flow = 10 ml/hr [place] D5[place] [address] units in 250 ml. Ordered by Jack Eduardo. HEPARIN DRIP STOPPED 11/22/2017 8:10:34 PM 1000 units/hr 0 Patient arrived on 1000 units/hr HEPARIN DRIP STOPPED. Pump/Drip Flow = 0 ml/hr using [Solution Name] . Discontinued at 11/22/2017 20:15. IV Solutions 11/22/2017 8:10:31 PM 50 mL (IV) NaCl .9 Patient arrived on IV Solutions via Peripheral IV. Pump/Drip Flow using NaCl .9. Initial Case Assessment Cardiovascular HR Rhythm NIBP Chest Pain 118 stemi 124/90 6 Edema Present Skin color Skin None Normal Warm Dry Circulatory - Right Pulses Dorsalis Pedis Femoral 2 2 Scale (0,1,2,3,4,d) Circulatory - Left Pulses Dorsalis Pedis Femoral 2 2 Scale (0,1,2,3,4,d) Circulatory - Lower Extremities Color Lower Right Color Lower Left Normal Normal Neurological State Oriented to time-place- Alert Moves all extremities person Respiration - General Respiration Rate SpO2 (%) (B/min) 20 86 Final Case Assessment Cardiovascular HR Rhythm NIBP Chest Pain 118 stemi 124/90 6 Edema Present Skin color Skin None Normal Warm Dry Circulatory - Right Pulses Dorsalis Pedis Femoral 2 2 Scale (0,1,2,3,4,d) Circulatory - Left Pulses Dorsalis Pedis Femoral 2 2 Scale (0,1,2,3,4,d) Circulatory - Lower Extremities Color Lower Right Color Lower Left Normal Normal Neurological State Oriented to time-place- Alert Moves all extremities person Respiration - General Respiration Rate SpO2 (%) (B/min) 20 Chronological Log Time Study Chronological Log 19:48:33 Spoke with unit technician that cath team is ready for pt. 20:00:50 Patient arrived via Bed. 20:00:51 Patient Name, D.O.B, / Armband Verified By R.N. 20:06:10 MD arrived. 20:09:07 Consent signed by the physician and the patient and verified by the E Commerce Architect staff. 20:10:21 Pre-op and post- op instructions given; patient acknowledges understanding of instructions. 20:10:22 Verbal Stimulation=2 Physical Stimulation=2 Airway=2 Respiration=2 TOTAL=8. (0=absent, 1=li mited, 2=present) 20:10:25 Patient has been NPO for Less than 6Hrs. 20:10:26 Skin Breakdown- none per patient 20:10:27 Patient Warmer Placed on the Table. 20:10:28 Disposable Defibrillator Pads Placed On Patient. 20:10:29 [place] Prominences Protected 20:10:30 A # 20 IV was noted in the Antecubital (left). Grade = 0 20:10:31 Patient arrived on IV Solutions via Peripheral IV. Pump/Drip Flow using NaCl .9. 20:10:31 History and physical on the chart or being dictated. Assessment: Initial Case, WN=053 BPM, Rhythm=stemi, HEVT=766/90 mmhg, Chest Pain=6, Edema=None, Color=Normal, Skin = Warm, Dry Right Pulses: Terrell Ped=2, Femoral=2 Left Pulses: Terrell Ped=2, Femoral=2 20:10:32 Lower Right Extremities: Color=Normal Lower Left Extremities: Color=Normal Neurological: State=Alert, Ox3, AHUJA Respiration: Resp=20 B/min, SpO2=86 % Patient arrived on 1000 units/hr HEPARIN DRIP STOPPED. Pump/Drip Flow = 0 ml/hr using [Solution Name]. 20:10:34 Discontinued at 11/22/2017 20:15. 20:10:35 A # 20 IV was noted in the Antecubital (right). Grade = 0 20:10:45 Bilateral groins prepped with 2% chlorhexidine, and draped after a 3 minute waiting time. Vitals capture started with the following parameters, Patient=Adult, Interval=5 min, Initial Pr gpjvgt=806 mmHg, 20:12:19 Deflation Rate=5 mmHg, Cuff placed on Left Arm 20:13:00 4 mg ZOFRAN given in lab by Uma Stiles, JACY via Central IV. Ordered by Jack Eduardo . Vitals capture started with the following parameters, Patient=Adult, Interval=5 min, Initial Pr toatlo=026 mmHg, 20:13:21 Deflation Rate=5 mmHg, Cuff placed on Left Arm 20:14:00 1 mg VERSED given in lab by Uma Stiles, JACY in Left Antecubital via Peripheral IV. Orde red by Jack Eduardo. Time Out. Correct patient, correct procedure, correct physician, labs, allergies, and equipment verified with pie bakery laborer 20:14:13 team present. Fire risk assesment completed (see hard stop sheet for coding). Time Out Conc urred by MD and individual staff in procedure. 25 mcg FENTANYL given in lab by Uma Stiles, JACY in Right Antecubital via Peripheral IV. Ord ered by Alesha, 20:15:00 Jack. 20:15:23 Reference ECG taken Vitals capture started with the following parameters, Patient=Adult, Interval=5 min, Initial Pr lzhzgu=843 mmHg, 20:15:50 Deflation Rate=5 mmHg, Cuff placed on Left Arm 20:16:28 IJ=953 bpm, CULI=187/90 mmhg, SpO2=84.0 %, Resp=24 B/min, Pain=6, Dae=10, Santos=2 20:18:15 Case Start 20 mL 1% XYLOCAINE given in lab by Jack Eduardo in Right Groin via Subcutaneous. Ordered by Alesha, :18:18 Jack. 20:18:44 Pressure channel 1 zeroed. 20:18:52 Access site was Right Femoral Artery. 20:18:59 A wire was inserted via Fem Art (right). 20:19:03 A SHEATH, FR4 TERUMO (10CM) FR 4 was advanced into the Fem Art (right) using the Percutaneo us technique. A JR 4.0 INFINITI CATHETER FR 4 was advanced over a wire. OMNIPAQUE, 350 MG, 150ML 150ML was us ed for 20:21:00 injections. Recorded Pressure: LV, GD=645, Condition=Condition 1 20:21:05 (Left Ventricle) LV 118/41/46 20:21:27 TS=359 bpm, EXTG=114/86 mmhg, SpO2=81.0 %, Resp=25 B/min Recorded Pressure: LV, Ao, SI=364, Condition=Condition 1 20:21:33 (Left Ventricle) LV 115/27/44, (Aorta) Ao 125/71/100 20:22:15 The LV was manually injected with 10 cc's and visualized. OMNIPAQUE, 350 MG, 150ML 150ML us ed. 20:22:18 Activated Clotting Time Drawn 20:22:19 ACT (Normal Range 90-180) = 147 20:22:35 The RCA was injected and visualized at various angles. OMNIPAQUE, 350 MG, 150ML 150ML used . After removing the current catheter a JL 4.0 INFINITI CATHETER FR 4 was advanced over a WIRE, 3 MMJ .035 180CM 20:23:10 180CM. 20:25:05 The LCA was injected and visualized at various angles. OMNIPAQUE, 350 MG, 150ML 150ML used . 20:26:24 ZH=499 bpm, ETFD=602/91 mmhg, SpO2=92.0 %, Resp=29 B/min, Pain=6, Dae=10, Santos=2 20:29:03 Catheter was removed 20:30:22 An injection in the Fem Art (right) was made through the SHEATH, FR4 TERUMO (10CM) FR 4. A PIGTAIL ANG. INFINITI CATHETER FR 4 was advanced over a wire. OMNIPAQUE, 350 MG, 150ML 150ML was used 20:30:37 for injections. 20:31:00 4000 units HEPARIN given in lab by Uma Stiles RN via Peripheral IV. Ordered by Jack Dillard. 20:31:29 MD=940 bpm, LIQC=154/91 mmhg, SpO2=96.0 %, Resp=31 B/min 20:31:31 The LV was injected at 10 cc/sec for a total of 20. OMNIPAQUE, 350 MG, 150ML 150ML used. 20:31:47 Catheter was removed 1000 units/hr HEPARIN DRIP given in lab by Uma Stiles RN via Peripheral IV. Pump/Drip Gama w = 10 ml/hr using 20:34:00 D[place] [address] units in 250 ml. Ordered by Jack Eduardo. 20:34:44 Sheath exchanged for intra-aortic balloon insertion. 20:36:28 GY=652 bpm, KWUJ=693/93 mmhg, SpO2=83.0 %, Resp=32 B/min, Pain=6, Dae=10, Santos=2 25 mcg FENTANYL given in lab by Uma Stiles RN in Right Antecubital via Peripheral IV. Ord ered by Alesha, 20:37:51 Jack. An BALLOON, FR8 50CC SENSATION PLUS FR 8 50CC was advanced to the descending aorta. Proper plac ement was 20:38:46 confired under fluoroscopy and the balloon was sutured in place. Ratio = 1:1. Augmented BP ~SYS ~/~BEBO~ 25 mcg FENTANYL given in lab by Uma Stiles RN in Right Antecubital via Peripheral IV. Ord ered by Alesha, 20:41:00 Jack. 20:42:13 IP=735 bpm, TFRP=326/70 mmhg, SpO2=93.0 %, Resp=35 B/min, Pain=6, Dae=10, Santos=2 20:43:00 Increased heparin drip to 1200 units/hr 20:43:52 Case End (Physician broke scrub) 20:44:09 Activated Clotting Time Drawn 20:46:27 GJ=883 bpm, WOBS=660/76 mmhg, SpO2=80.0 %, Resp=22 B/min, Pain=6, Dae=10, Santos=2 Assessment: Final Case, FN=697 BPM, Rhythm=stemi, WGQG=079/90 mmhg, Chest Pain=6, Edema=None, Color=Normal, Skin = Warm, Dry Right Pulses: Terrell Ped=2, Femoral=2 Left Pulses: Terrell Ped=2, Femoral=2 20:46:46 Lower Right Extremities: Color=Normal Lower Left Extremities: Color=Normal Neurological: State=Alert, Ox3, AHUJA Respiration: Resp=20 B/min, SpO2=86 % 20:47:04 Catheter(s) removed without difficulty 20:47:33 Sterile dressing applied to site 20:47:33 No case complications noted. 20:47:34 Cine recording checked. 20:47:40 Bedside Report will be given. 20:47:52 A Left Heart Cath was performed. 20:51:30 MG=687 bpm, GAXR=736/79 mmhg, SpO2=93.0 %, Resp=36 B/min, Pain=0, Dae=10, Santos=2 20:52:14 ACT (Normal Range 90-180) = 188 20:54:58 4000 units HEPARIN given in lab by Mariya Whitt RN via Peripheral IV. Ordered by Jack Mccormick. 20:56:29 PN=267 bpm, ODYZ=813/72 mmhg, SpO2=95.0 %, Resp=26 B/min, Pain=0, Dae=10, Santos=2 21:01:30 LYNI=062/74 mmhg 21:03:50 Patient moved to stretcher 21:14:35 Activated Clotting Time Drawn 21:18:03 ACT (Normal Range 90-180) = 254 End Study - Contrast Media Used In Study Contrast Total Opened (mL) Total Used (mL) Total Wasted (mL) Omnipaque 35 35 0 End Study - Maximum Contrast Load Max Contrast Load (mL) 495.0 End Study - Radiation Exposure Fluoro Time (minutes) 2.5 End Study - Patient Disposition Complications Transferred To Interventional Outcome No Critical Care Bed No attempt made
[2017-11-22] MEDS: SUCRALFATE 1 GM/10 ML CUP PO SCH (21:45)
[2017-11-22] MEDS: ATORVASTATIN 20 MG TAB PO SCH (21:45)
[2017-11-22] MEDS: DOCUSATE SODIUM 50 MG/SENNA 8.6 MG TAB PO SCH (21:45)
--- NOTE | 2017-11-22 21:56 | PD.CONS ---
[facility] Service Critical Care Medicine Consult Requested By Primary Care Physician No Primary Care Physician History of Present Illness 52-year-old male with past medical history of hypertension and tobacco use disorder, presents with severe abdominal pain for the past 2 days. He has been having abdominal pain which started about 2 months ago. 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 He is concerned about having a stress ulcer. He describes the pain is in his stomach as burning sensation, goes up his chest, 9/10, feels like he is being "hit w a sludge hammer" in both chest and stomach. Admits to 20 lbs weight loss, dysphasia with solids only, nausea but no vomiting. Hasn't seen a GI physician. Pt states his pain is so bad that he cannot walk from the room to the bathroom, he states that he feels the reflux up his throat and has a very nasty taste in his mouth. He cannot lay flat because the pain gets worst. The initial troponins were elevated and he was emergently seen by source inspector. He did not meet criteria for STEMI, but due to his ongoing chest pain, he was urgently transferred to [facility] for urgent left heart catheterization. He has revealed critical left main and ostial proximal right coronary artery disease, critically elevated left ventricular end diastolic pressure, ejection fraction of 25-30%, and successful placement of an intraaortic balloon pump with immediate resolution of the patient's chest pain and dyspnea. The cardiothoracic surgery consultation is pending. Review of Systems Constitutional: COMPLAINS OF: Diaphoretic episodes, Weight loss, DENIES: Fatigue, Fever, Weight gain, Chills, Dizziness, Change in appetite, Night Sweats Endocrine: DENIES: Heat/cold intolerance, Polydipsia, Polyuria, Polyphagia Eyes: DENIES: Blurred vision, Diplopia, Eye inflammation, Eye pain, Vision loss , Photosensitivity, Double Vision Ears, nose, mouth, throat: DENIES: Tinnitus, Hearing loss, Vertigo, Nasal discharge, Oral lesions, Throat pain, Hoarseness, Ear Pain, Running Nose, Epistaxis, Sinus Pain, Toothache, Odynophagia Respiratory: COMPLAINS OF: Shortness of breath, DENIES: Apneas, Cough, Snoring , Wheezing, Hemoptysis, Sputum production Cardiovascular: DENIES: Chest pain, Palpitations, Syncope, Dyspnea on Exertion , PND, Lower Extremity Edema, Orthopnea, Claudication Gastrointestinal: COMPLAINS OF: Abdominal pain, Nausea, Difficulty Swallowing, DENIES: Black stools, Bloody stools, Constipation, Diarrhea, Vomiting, Anorexia Genitourinary: DENIES: Sexual dysfunction, Urinary frequency, Urinary incontinence, Urgency, Hematuria, Dysuria, Nocturia, Penile Discharge, Testicular Pain, Testicular Swelling Musculoskeletal: DENIES: Joint pain, Muscle aches, Stiffness, Joint Swelling, Back pain, Neck pain Integumentary: DENIES: Abnormal pigmentation, Nail changes, Pruritus, Rash Hematologic/lymphatic: DENIES: Bruising, Lymphadenopathy Immunologic/allergic: DENIES: Eczema, Urticaria Neurologic: COMPLAINS OF: Abnormal gait, Poor Balance, DENIES: Headache, Localized weakness, Paresthesias, Seizures, Speech Problems, Tremor Psychiatric: DENIES: Anxiety, Confusion, Mood changes, Depression, Hallucinations, Agitation, Suicidal Ideation, Homicidal Ideation, Delusions Past Family Social History Allergies: Coded Allergies: No Known Allergies (Unverified Allergy, Unknown, 11/22/17) Past Medical History HTN Prior hx of rectal fissure Past Surgical History B arthroscopic knee sx anal fissure repair Reported Medications Reported Meds & Active Scripts Active Reported Multiple Vitamin 1 Tab 1 Tab PO DAILY Carafate (Sucralfate) 1 Gram Tab 1 Gm PO QID On empty stomach Hydrochlorothiazide 12.5 Mg Cap 12.5 Mg PO DAILY Protonix (Pantoprazole Sodium) 40 Mg Tab 40 Mg PO DAILY Active Ordered Medications Current Medications Medications (Trade) Dose Ordered Sig/Nancy Route PRN Reason Start Time Stop Time Status Last Admin Dose Admin Sodium Chloride 1,000 ml @ 75 mls/hr [id number] IV 11/22/17 14:00 11/22/17 20:15 Metoclopramide HCl (Reglan Inj) 5 mg Q6H PRN IV PUSH NAUSEA OR VOMITING 11/22/17 13:30 Naloxone HCl (Narcan Inj) 0.4 mg UNSCH PRN IV PUSH SEE LABEL COMMENTS 11/22/17 13:30 Senna/Docusate Sodium (Valorie-Colace) 1 tab BID PO 11/22/17 21:00 Magnesium Hydroxide (Milk Of Magnesia Liq) 30 ml Q12H PRN PO Mild constipation 11/22/17 13:30 Sennosides (Senokot) 17.2 mg Q12H PRN PO Moderate constipation 11/22/17 13:30 Bisacodyl (Dulcolax Supp) 10 mg DAILY PRN RECTAL SEVERE CONSITIPATION 11/22/17 13:30 Lactulose (Lactulose Liq) 30 ml DAILY PRN PO SEVERE CONSITIPATION 11/22/17 13:30 Acetaminophen/ Hydrocodone Bitart (Adrian 5-325 Mg) 1 tab Q4H PRN PO PAIN SCALE 3 TO 6 11/22/17 13:30 Acetaminophen/ Hydrocodone Bitart (Adrian 7.5-325 Mg) 1 tab Q4H PRN PO PAIN SCALE 7 TO 10 11/22/17 13:30 11/22/17 14:19 Morphine Sulfate (Morphine Inj) 2 mg Q3H PRN IV PUSH BRKP/CHEST PAIN 11/22/17 13:30 11/22/17 16:40 Pantoprazole Sodium (Protonix) 40 mg DAILY PO 11/22/17 13:30 11/22/17 14:20 Sucralfate (Carafate Liq) 1 gm ACHS PO 11/22/17 21:00 Nitroglycerin (Nitroglycerin 2% Oint) 0.5 inch Q6HR TOPICAL 11/22/17 18:00 Carvedilol (Coreg) 6.25 mg Q12HR PO 11/22/17 21:00 Enalaprilat (Vasotec Inj) 1.25 mg Q6H PRN IV PUSH SBP>160, DBP>90 11/22/17 16:30 Lisinopril (Prinivil) 10 mg DAILY PO 11/23/17 09:00 Atorvastatin Calcium (Lipitor) 20 mg HS PO 11/22/17 21:00 Nitroglycerin (Nitrostat Sl) 0.4 mg Q5M PRN SL CHEST PAIN 11/22/17 17:45 11/22/17 16:36 Nitroglycerin/ Dextrose 250 ml @ 1.5 mls/hr TITRATE PRN IV Chest pain relief 11/22/17 17:45 11/22/17 18:01 Sodium Chloride (NS Flush) 2 ml UNSCH PRN IV FLUSH FLUSH AFTER USING IV ACCESS 11/22/17 21:00 Sodium Chloride (NS Flush) 2 ml BID IV FLUSH 11/22/17 21:00 6/9/18 20:10 Aspirin (Aspirin Chew) 162 mg DAILY PO 11/23/17 09:00 Family History mother had RI at age 40 and 60 and . Had also renal disease and DM father healthy Social History quit smoking a few months ago, smoke 3ppd for many years denies any illegal drug use or alcohol use Physical Exam Vital Signs Vital Signs Date Time Temp Pulse Resp B/P (MAP) Pulse Ox O2 Delivery O2 Flow Rate FiO2 11/22/17 19:14 100 143/93 (110) 100 11/22/17 18:08 17 11/22/17 18:02 22 11/22/17 18:01 105 135/92 11/22/17 17:54 91 12 127/83 (98) 95 Nasal Cannula 2.00 11/22/17 17:53 102 17 121/78 (92) 95 Room Air 11/22/17 17:35 18 11/22/17 16:30 112 144/93 (110) 11/22/17 16:25 120 134/80 (98) 11/22/17 16:20 97.9 115 20 150/95 (113) 98 11/22/17 15:17 97.7 98 20 143/100 (114) 98 11/22/17 14:41 11/22/17 14:28 16 11/22/17 14:15 97 20 142/100 (114) 96 11/22/17 13:43 77 16 128/77 (94) 98 11/22/17 13:14 16 11/22/17 13:14 16 11/22/17 13:13 97 18 146/102 (117) 98 11/22/17 12:30 93 20 138/92 (107) 95 Room Air 11/22/17 12:18 103 20 154/104 (121) 98 Room Air 11/22/17 11:45 20 97 Room Air 11/22/17 11:25 97.2 110 24 174/98 (123) 100 Physical Exam GENERAL: Well-nourished, well-developed patient. SKIN: Warm and dry. HEAD: Normocephalic. EYES: No scleral icterus. No injection or drainage. NECK: Supple, trachea midline. No JVD or lymphadenopathy. CARDIOVASCULAR: Regular rate and rhythm without murmurs, gallops, or rubs. RESPIRATORY: Breath sounds equal bilaterally. No accessory muscle use. GASTROINTESTINAL: Abdomen soft, non-tender, nondistended. MUSCULOSKELETAL: No cyanosis, or edema. BACK: Nontender without obvious deformity. NEURO EXAM: GCS: 15 Mental Status: The patient is alert and oriented to person, place, and time with normal speech. Cranial Nerves: Visual acuity intact bilaterally. Visual cosby normal in all quadrants. Pupils are round, reactive to light. Extraocular movements are intact without ptosis. Hearing is normal bilaterally. Voice is normal. Tongue protrudes midline and moves symmetrically. Laboratory Laboratory Tests Test 11/22/17 11:35 11/22/17 14:08 11/22/17 15:12 11/22/17 16:23 White Blood Count 15.2 16.8 Red Blood Count 5.95 5.76 Hemoglobin 17.8 17.1 Hematocrit 53.6 51.7 Mean Corpuscular Volume 90.1 89.7 Mean Corpuscular Hemoglobin 30.0 29.6 Mean Corpuscular Hemoglobin Concent 33.2 33.0 Red Cell Distribution Width 12.9 13.0 Platelet Count 281 237 Mean Platelet Volume 8.1 7.8 Neutrophils (%) (Auto) 78.7 Lymphocytes (%) (Auto) 17.2 Monocytes (%) (Auto) 3.2 Eosinophils (%) (Auto) 0.1 Basophils (%) (Auto) 0.8 Neutrophils # (Auto) 12.0 Lymphocytes # (Auto) 2.6 Monocytes # (Auto) 0.5 Eosinophils # (Auto) 0.0 Basophils # (Auto) 0.1 CBC Comment DIFF FINAL Differential Comment Prothrombin Time 10.2 10.7 Prothromb Time International Ratio 1.0 1.1 Activated Partial Thromboplast Time 28.2 27.5 Blood Urea Nitrogen 10 Creatinine 1.10 Random Glucose 153 Total Protein 8.8 Albumin 4.0 Calcium Level 9.3 Alkaline Phosphatase 85 Aspartate Amino Transf (AST/SGOT) 61 Alanine Aminotransferase (ALT/SGPT) 45 Total Bilirubin 0.5 Sodium Level 135 Potassium Level 4.6 Chloride Level 100 Carbon Dioxide Level 23.4 Anion Gap 12 Estimat Glomerular Filtration Rate 71 Lipase 169 Urine Collection Type CLEAN CATCH Urine Color YELLOW Urine Turbidity CLEAR Urine pH 7.0 Urine Specific [place] LESS/EQUAL 1.005 Urine Protein NEG Urine Glucose (UA) NEG Urine Ketones NEG Urine Occult Blood TRACE Urine Nitrite NEG Urine Bilirubin NEG Urine Urobilinogen 0.2 Urine Leukocyte Esterase NEG Urine RBC 0-3 Urine Squamous Epithelial Cells 0-5 Microscopic Urinalysis Comment CULT NOT INDICATED Total Creatine Kinase 232 Creatine Kinase MB 50.4 Troponin I 3.21 Result Diagram: 11/22/17 1623 11/22/17 1135 Imaging Last 24 hours Impressions Abdomen/Pelvis CT 11/22/17 1140 Signed Impressions: CONCLUSION: 1. Hepatomegaly and hepatic steatosis. 2. Nonobstructing right renal calculi, renal scarring and cysts. 3. Atherosclerosis. 4. Long-term stable tiny right lung nodules unchanged to 2013 characteristic o f benign process. 5. Calcified left ventricular apical infarct. Assessment and Plan Assessment and Plan Acute coronary syndrome -Status post emergent cardiac catheterization -Multivessel disease -CT surgery evaluation pending -Aspirin, lisinopril, Coreg, atorvastatin -Further management per cardiology Cardiogenic shock -Due to above -IABP -Management per Dr. Subramanian Respiratory failure -Due to heart failure -O2 nasal cannula/nonrebreather support to keep sats above 92 -DuoNeb's as needed Dyslipidemia -Atorvastatin Critical Care: The total critical care time was 35 minutes. Time to perform other separately billable procedures was not included in the critical care time. Sal Rayo MD Nov 22, 2017 9:56 pm
[2017-11-22] MEDS ORDERED: HEPARIN SODIUM - IV 10,000 UNITS/10 ML VIAL IV PUSH PRN ×2 (22:15)
[2017-11-22] MEDS: DEXMEDETOMIDINE 200 MCG in NS 48 ML IV PRN (22:30)
[2017-11-22 23:26] LABS: TROPONIN I 13.8 NG/ML (0.02-0.05)
[2017-11-23] VITALS (15 sets, daily range): BP systolic 73–112; BP diastolic 59–79; PULSE 66–85; RESP 16–20; TEMP 98–99.2; O2SAT 92–96
--- NOTE | 2017-11-23 00:21 | PD.CARD.PN ---
Subjective Subjective Remarks asleep in nad Objective Medications Current Medications Medications (Trade) Dose Ordered Sig/Nancy Route Start Time Stop Time Status Last Admin Sodium Chloride 1,000 ml @ 75 mls/hr [id number] IV 11/22/17 14:00 11/22/17 20:15 (Reglan Inj) 5 mg Q6H PRN IV PUSH 11/22/17 13:30 (Narcan Inj) 0.4 mg UNSCH PRN IV PUSH 11/22/17 13:30 (Valorie-Colace) 1 tab BID PO 11/22/17 21:00 (Milk Of Magnesia Liq) 30 ml Q12H PRN PO 11/22/17 13:30 (Senokot) 17.2 mg Q12H PRN PO 11/22/17 13:30 (Dulcolax Supp) 10 mg DAILY PRN RECTAL 11/22/17 13:30 (Lactulose Liq) 30 ml DAILY PRN PO 11/22/17 13:30 (Lewis 5-325 Mg) 1 tab Q4H PRN PO 11/22/17 13:30 (Lewis 7.5-325 Mg) 1 tab Q4H PRN PO 11/22/17 13:30 11/22/17 14:19 (Morphine Inj) 2 mg Q3H PRN IV PUSH 11/22/17 13:30 11/22/17 16:40 (Protonix) 40 mg DAILY PO 11/22/17 13:30 11/22/17 14:20 (Carafate Liq) 1 gm ACHS PO 11/22/17 21:00 (Nitroglycerin 2% Oint) 0.5 inch Q6HR TOPICAL 11/22/17 18:00 (Coreg) 6.25 mg Q12HR PO 11/22/17 21:00 (Vasotec Inj) 1.25 mg Q6H PRN IV PUSH 11/22/17 16:30 (Prinivil) 10 mg DAILY PO 11/23/17 09:00 (Lipitor) 20 mg HS PO 11/22/17 21:00 (Nitrostat Sl) 0.4 mg Q5M PRN SL 11/22/17 17:45 11/22/17 16:36 Nitroglycerin/ Dextrose 250 ml @ 1.5 mls/hr TITRATE PRN IV 11/22/17 17:45 11/22/17 18:01 (NS Flush) 2 ml UNSCH PRN IV FLUSH 11/22/17 21:00 (NS Flush) 2 ml BID IV FLUSH 11/22/17 21:00 11/22/17 20:10 (Aspirin Chew) 162 mg DAILY PO 11/23/17 09:00 Dexmedetomidine HCl 200 mcg/ Sodium Chloride 50 ml @ 5.44 mls/hr TITRATE PRN IV 11/22/17 22:30 11/22/17 22:30 Vital Signs / I&O Vital Signs Date Time Temp Pulse Resp B/P (MAP) Pulse Ox O2 Delivery O2 Flow Rate FiO2 11/22/17 19:14 100 143/93 (110) 100 11/22/17 18:08 17 11/22/17 18:02 22 11/22/17 18:01 105 135/92 11/22/17 17:54 91 12 127/83 (98) 95 Nasal Cannula 2.00 11/22/17 17:53 102 17 121/78 (92) 95 Room Air 11/22/17 17:35 18 11/22/17 16:30 112 144/93 (110) 11/22/17 16:25 120 134/80 (98) 11/22/17 16:20 97.9 115 20 150/95 (113) 98 11/22/17 15:17 97.7 98 20 143/100 (114) 98 11/22/17 14:41 11/22/17 14:28 16 11/22/17 14:15 97 20 142/100 (114) 96 11/22/17 13:43 77 16 128/77 (94) 98 11/22/17 13:14 16 11/22/17 13:14 16 11/22/17 13:13 97 18 146/102 (117) 98 11/22/17 12:30 93 20 138/92 (107) 95 Room Air 11/22/17 12:18 103 20 154/104 (121) 98 Room Air 11/22/17 11:45 20 97 Room Air 11/22/17 11:25 97.2 110 24 174/98 (123) 100 I/O 6/9/18 6/9/18 6/9/18 6/10/18 6/10/18 6/10/18 07:00 15:00 23:00 07:00 15:00 23:00 Intake Total 1000 ml 1000 ml Balance 1000 ml 1000 ml Intake IV Total 1000 ml 1000 ml Physical Exam GENERAL: SKIN: Warm and dry. HEAD: Normocephalic. EYES: No scleral icterus. No injection or drainage. NECK: Supple, trachea midline. No JVD or lymphadenopathy. CARDIOVASCULAR: Regular rate and rhythm without murmurs, gallops, or rubs. RESPIRATORY: Breath sounds equal bilaterally. No accessory muscle use. GASTROINTESTINAL: Abdomen soft, non-tender, nondistended. MUSCULOSKELETAL: No cyanosis, or edema. BACK: Nontender without obvious deformity. No CVA tenderness. Laboratory Laboratory Tests Test 11/22/17 11:35 11/22/17 14:08 11/22/17 15:12 11/22/17 16:23 White Blood Count 15.2 TH/MM3 16.8 TH/MM3 Red Blood Count 5.95 MIL/MM3 5.76 MIL/MM3 Hemoglobin 17.8 GM/DL 17.1 GM/DL Hematocrit 53.6 % 51.7 % Mean Corpuscular Volume 90.1 FL 89.7 FL Mean Corpuscular Hemoglobin 30.0 PG 29.6 PG Mean Corpuscular Hemoglobin Concent 33.2 % 33.0 % Red Cell Distribution Width 12.9 % 13.0 % Platelet Count 281 TH/MM3 237 TH/MM3 Mean Platelet Volume 8.1 FL 7.8 FL Neutrophils (%) (Auto) 78.7 % Lymphocytes (%) (Auto) 17.2 % Monocytes (%) (Auto) 3.2 % Eosinophils (%) (Auto) 0.1 % Basophils (%) (Auto) 0.8 % Neutrophils # (Auto) 12.0 TH/MM3 Lymphocytes # (Auto) 2.6 TH/MM3 Monocytes # (Auto) 0.5 TH/MM3 Eosinophils # (Auto) 0.0 TH/MM3 Basophils # (Auto) 0.1 TH/MM3 CBC Comment DIFF FINAL Differential Comment Prothrombin Time 10.2 SEC 10.7 SEC Prothromb Time International Ratio 1.0 RATIO 1.1 RATIO Activated Partial Thromboplast Time 28.2 SEC 27.5 SEC Blood Urea Nitrogen 10 MG/DL Creatinine 1.10 MG/DL Random Glucose 153 MG/DL Total Protein 8.8 GM/DL Albumin 4.0 GM/DL Calcium Level 9.3 MG/DL Alkaline Phosphatase 85 U/L Aspartate Amino Transf (AST/SGOT) 61 U/L Alanine Aminotransferase (ALT/SGPT) 45 U/L Total Bilirubin 0.5 MG/DL Sodium Level 135 MEQ/L Potassium Level 4.6 MEQ/L Chloride Level 100 MEQ/L Carbon Dioxide Level 23.4 MEQ/L Anion Gap 12 MEQ/L Estimat Glomerular Filtration Rate 71 ML/MIN Lipase 169 U/L Urine Collection Type CLEAN CATCH Urine Color YELLOW Urine Turbidity CLEAR Urine pH 7.0 Urine Specific [place] LESS/EQUAL 1.005 Urine Protein NEG mg/dL Urine Glucose (UA) NEG mg/dL Urine Ketones NEG mg/dL Urine Occult Blood TRACE Urine Nitrite NEG Urine Bilirubin NEG Urine Urobilinogen 0.2 MG/DL Urine Leukocyte Esterase NEG Urine RBC 0-3 /hpf Urine Squamous Epithelial Cells 0-5 /hpf Microscopic Urinalysis Comment CULT NOT INDICATED Total Creatine Kinase 232 U/L Creatine Kinase MB 50.4 NG/ML Troponin I 3.21 NG/ML Hepatitis A IgM Antibody NONREACTIVE Hepatitis B Surface Antigen NONREACTIVE Hepatitis B Core IgM Antibody NONREACTIVE Hepatitis C IgG Antibody NONREACTIVE Test 11/22/17 22:32 Activated Partial Thromboplast Time 82.5 SEC Total Creatine Kinase 624 U/L Creatine Kinase MB 134.8 NG/ML Creatine Kinase MB % 21.6 % Troponin I 13.80 NG/ML Imaging Last 24 hours Impressions Abdomen/Pelvis CT 11/22/17 1140 Signed Impressions: CONCLUSION: 1. Hepatomegaly and hepatic steatosis. 2. Nonobstructing right renal calculi, renal scarring and cysts. 3. Atherosclerosis. 4. Long-term stable tiny right lung nodules unchanged to 2013 characteristic o f benign process. 5. Calcified left ventricular apical infarct. Assessment and Plan Problem List: (1) NSTEMI (non-ST elevated myocardial infarction) ICD Codes: I21.4 - Non-ST elevation (NSTEMI) myocardial infarction (2) Tobacco abuse ICD Codes: Z72.0 - Tobacco use (3) CHF (congestive heart failure) ICD Codes: I50.9 - Heart failure, unspecified (4) Elevated LFTs ICD Codes: R94.5 - Abnormal results of liver function studies (5) Cardiomyopathy ICD Codes: I42.9 - Cardiomyopathy, unspecified (6) Abdominal pain ICD Codes: R10.9 - Unspecified abdominal pain Status: Acute Assessment and Plan 1.) Severe left main and 3 vessel cad/cardiomyopathy - continue aspirin, iv heparin, iabp; statin held due to elevated lfts, beta sim held due to decompensated chf; d/e Dr Franco, ct surgery consult place, pre-op echo and carotid us ordered; patient strongly advised to stp smoking Problem Qualifiers (1) Abdominal pain: Qualified Codes: R10.12 - Left upper quadrant pain Jack Eduardo MD Nov 23, 2017 00:21
[2017-11-23] MEDS: DEXMEDETOMIDINE 200 MCG in NS 48 ML IV PRN ×4 (03:46→23:44)
[2017-11-23 05:01] LABS: AUTOMATED NEUTROPHIL # 9.3 TH/MM3 (1.8-7.7); BASOPHIL # 0.1 TH/MM3 (0-0.2); BASOPHIL % 0.6 % (0.0-2.0); EOSINOPHIL % 0.1 % (0.0-4.0); HEMOGLOBIN 15.3 GM/DL (13.0-17.0); LYMPH % 14.9 % (9.0-44.0); LYMPHOCYTE # 1.8 TH/MM3 (1.0-4.8); MEAN CELL VOLUME 87.6 FL (80.0-100.0); MEAN CORPUSCULAR HEMOGLOBIN 29.9 PG (27.0-34.0); MEAN CORPUSCULAR HGB CONC 34.1 % (32.0-36.0); MEAN PLATELET VOLUME 8.3 FL (7.0-11.0); MONO % 7.8 % (0.0-8.0); MONOCYTE # 0.9 TH/MM3 (0-0.9); NEUT % 76.6 % (16.0-70.0); PLATELET COUNT 186 TH/MM3 (150-450); RED BLOOD COUNT 5.13 MIL/MM3 (4.50-5.90); WHITE BLOOD COUNT 12.1 TH/MM3 (4.0-11.0)
[2017-11-23 05:18] LABS: ALBUMIN 2.8 GM/DL (3.4-5.0); AST (GOT) 134 U/L (15-37); BICARBONATE 23.5 MEQ/L (21.0-32.0); BLOOD UREA NITROGEN 13 MG/DL (7-18); CALCIUM 7.8 MG/DL (8.5-10.1); CHLORIDE 106 MEQ/L (98-107); CREATININE 0.85 MG/DL (0.60-1.30); GLOMERULAR FILTRATION RATE 95 ML/MIN (>89); GLUCOSE,RANDOM 110 MG/DL (74-106); SODIUM (NA) 139 MEQ/L (136-145)
[2017-11-23 05:19] LABS: CHOLESTEROL 178 MG/DL (120-200)
[2017-11-23 05:23] LABS: ALKALINE PHOSPHATASE 66 U/L (45-117); ALT (GPT) 45 U/L (12-78); CHOLESTEROL/ HDL RATIO 6.24 RATIO; HDL CHOLESTEROL 28.5 MG/DL (40.0-60.0); LDL CHOLESTEROL 101 MG/DL (0-99); TOTAL BILIRUBIN ADULT 0.5 MG/DL (0.2-1.0); TOTAL PROTEIN 6.1 GM/DL (6.4-8.2); TRIGLYCERIDES 245 MG/DL (42-150)
[2017-11-23] MEDS: MORPHINE SULFATE 4 MG/ML INJ IV PUSH PRN ×6 (05:43→23:43)
[2017-11-23] MEDS: NITROGLYCERIN 2% OINT 1 GM PACKET TOPICAL SCH ×3 (06:00→11:56)
[2017-11-23] MEDS ORDERED: HEPARIN SODIUM - IV 10,000 UNITS/10 ML VIAL IV PUSH PRN (06:30)
[2017-11-23] MEDS: HEPARIN 25,000 UNITS-D5W 250 ML - PREMIX IV PRN ×2 (06:49→12:37)
[2017-11-23] MEDS: HEPARIN SODIUM - IV 10,000 UNITS/10 ML VIAL IV PUSH PRN ×2 (06:51→16:14)
[2017-11-23] MEDS ORDERED: ONDANSETRON HCL 4 MG/2 ML VIAL ONE (07:30)
[2017-11-23] MEDS: ACETAMINOPHEN/HYDROcodone 325 MG/7.5 MG TAB PO PRN ×3 (07:36→14:43)
[2017-11-23] MEDS ORDERED: ONDANSETRON HCL 4 MG/2 ML VIAL IV PUSH ONE (08:00)
[2017-11-23] MEDS: DOCUSATE SODIUM 50 MG/SENNA 8.6 MG TAB PO SCH ×2 (08:14→20:08)
[2017-11-23] MEDS: SODIUM CHLORIDE 0.9% FLUSH 10 ML FLUSH IV FLUSH SCH ×2 (08:14→20:07)
[2017-11-23] MEDS: PANTOPRAZOLE SOD 40 MG DELAYED RELEASE TAB PO SCH (08:18)
[2017-11-23] MEDS: SUCRALFATE 1 GM/10 ML CUP PO SCH ×4 (08:19→20:08)
[2017-11-23] MEDS: ASPIRIN 81 MG CHEW TAB PO SCH (08:19)
--- NOTE | 2017-11-23 08:27 | HHI.CCPN ---
Subjective Remarks/Hospital Course 52-year-old male with past medical history of hypertension and tobacco use disorder, presents with severe abdominal pain for the past 2 days. He has been having abdominal pain which started about 2 months ago. 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 He is concerned about having a stress ulcer. He describes the pain is in his stomach as burning sensation, goes up his chest, 9/10, feels like he is being "hit w a sludge hammer" in both chest and stomach. Admits to 20 lbs weight loss, dysphasia with solids only, nausea but no vomiting. Hasn't seen a GI physician. Pt states his pain is so bad that he cannot walk from the room to the bathroom, he states that he feels the reflux up his throat and has a very nasty taste in his mouth. He cannot lay flat because the pain gets worst. The initial troponins were elevated and he was emergently seen by gear finisher. He did not meet criteria for STEMI, but due to his ongoing chest pain, he was urgently transferred to [facility] for urgent left heart catheterization. He has revealed critical left main and ostial proximal right coronary artery disease, critically elevated left ventricular end diastolic pressure, ejection fraction of 25-30%, and successful placement of an intraaortic balloon pump with immediate resolution of the patient's chest pain and dyspnea. The cardiothoracic surgery consultation is pending. Subjective: 11/23 Denies CP or SOB now. Hasn't voided, urinary retention 500, placing Newton. On Precedex due to anxiety/agitated delirium/uncooperative with bedrest while IABP in place. CVS consult pending. C/O back pain, saying hospital bed bothers his back Objective Vital Signs Date Time Temp Pulse Resp B/P (MAP) Pulse Ox O2 Delivery O2 Flow Rate FiO2 11/23/17 06:00 79/60 (80) 11/23/17 05:00 95 Partial Rebreather 14.00 11/23/17 03:13 99.2 84 20 Intake and Output 11/23/17 11/23/17 11/24/17 08:00 16:00 00:00 Intake Total 1199.2 ml Balance 1199.2 ml Result Diagram: 11/23/17 0432 11/23/17 0432 Imaging Last 24 hours Impressions Abdomen/Pelvis CT 11/22/17 1140 Signed Impressions: CONCLUSION: 1. Hepatomegaly and hepatic steatosis. 2. Nonobstructing right renal calculi, renal scarring and cysts. 3. Atherosclerosis. 4. Long-term stable tiny right lung nodules unchanged to 2013 characteristic o f benign process. 5. Calcified left ventricular apical infarct. Objective Remarks GENERAL: Well-nourished, well-developed patient, sitting up in bed on PNR. SKIN: Warm and dry, adequately perfused HEAD: Normocephalic. EYES: No scleral icterus. No injection or drainage. NECK: Supple, trachea midline. No JVD or lymphadenopathy. CARDIOVASCULAR: Regular rate and rhythm , IABP audible, no murmur, sinus on monitor. RESPIRATORY: Breath sounds equal bilaterally. No accessory muscle use. GASTROINTESTINAL: Abdomen soft, non-tender, nondistended. Bowel sounds present. MUSCULOSKELETAL: No cyanosis, or edema. IABP R groin with blood staining to gauze but no ecchymosis or hematoma. NEURO EXAM: Awake, alert, moves all extremities without focal deficit. A/P Problem List: (1) NSTEMI (non-ST elevated myocardial infarction) ICD Code: I21.4 - Non-ST elevation (NSTEMI) myocardial infarction Status: Acute (2) Elevated LFTs ICD Code: R94.5 - Abnormal results of liver function studies Status: Chronic (3) Cardiomyopathy ICD Code: I42.9 - Cardiomyopathy, unspecified Status: Acute (4) Tobacco abuse ICD Code: Z72.0 - Tobacco use Status: Acute (5) CHF (congestive heart failure) ICD Code: I50.9 - Heart failure, unspecified Status: Acute (6) Cardiogenic shock ICD Code: R57.0 - Cardiogenic shock Status: Acute (7) Respiratory insufficiency ICD Code: R06.89 - Other abnormalities of breathing Status: Acute Assessment and Plan NSTEMI CAD -Status post emergent cardiac catheterization -Multivessel disease -CT surgery evaluation pending -Aspirin, atorvastatin -hold lisinopril/coreg for now. Can't use betablocker currently due to cardiogenic shock. -IABP :1:1 Cardiogenic shock -Due to above -IABP -EF 25-30%. -F/u Echo. Respiratory insufficiency -Due to heart failure -PNR changed to HFNC (for pt comfort)to keep sats above 92 -DuoNeb's as needed Urinary retention Newton placed, Monitor I/O. Tobacco abuse Dyslipidemia -Atorvastatin Obesity FULL CODE Level 3 f/u Problem Qualifiers (1) CHF (congestive heart failure): Josette Cano MD Nov 23, 2017 08:27
[2017-11-23] MEDS ORDERED: LIDOCAINE 2% JELLY 30 ML TUBE TOPICAL ONE (09:00)
[2017-11-23] MEDS ORDERED: ASPIRIN 325 MG TAB PO SCH (09:00)
[2017-11-23] MEDS ORDERED: ASPIRIN 81 MG CHEW TAB PO SCH (09:00)
[2017-11-23] MEDS ORDERED: LISINOPRIL 10 MG TAB PO SCH (09:00)
[2017-11-23] MEDS ORDERED: SODIUM CHLORIDE 0.9% FLUSH 10 ML FLUSH IV FLUSH SCH (09:00)
--- NOTE | 2017-11-23 09:18 | RADRPT ---
EXAM DATE: 11/23/2017 9:09 AM EDT AGE/SEX: 52 years / Male INDICATIONS: Short of breath CLINICAL DATA: This is the patient's initial encounter. Patient reports that signs and symptoms have been present for 2 days and indicates a pain score of 0/10. MEDICAL/SURGICAL HISTORY: . Gastroesophageal reflux disease. Ulcers. . Orthopedic surgery. COMPARISON: [facility] [place], CHEST SINGLE AP, 07/25/2012. . FINDINGS: There is cardiomegaly. EKG leads overlie the chest. There is minimal atelectasis at the bases. No def inite consolidation or effusion. Osseous structures are intact. CONCLUSION: Mild basilar atelectasis. Electronically signed by: Davey Gonzalez MD 11/23/2017 9:17 AM EDT
--- NOTE | 2017-11-23 09:35 | PD.CAR.PN ---
CVT Progress Note Subjective/Hospital Course: Pt examined and chart reviewed. 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 Will evaluate transfer to [facility] for high risk supported PCI vs high risk surgery vs transplant candidacy. Full consult dictated Objective: Vital Signs Date Time Temp Pulse Resp B/P (MAP) Pulse Ox O2 Delivery O2 Flow Rate FiO2 11/23/17 09:00 75/57 (73) 11/23/17 08:00 79/61 (80) 11/23/17 07:00 95 Partial Non-Rebreather 14.00 11/23/17 07:00 81/61 (84) 11/23/17 07:00 82 11/23/17 07:00 99.1 82 18 108/67 (81) 95 79/61 (67) 11/23/17 06:00 79/60 (80) 11/23/17 05:00 95 Partial Rebreather 14.00 11/23/17 05:00 85/65 (85) 11/23/17 04:00 83/65 (84) 11/23/17 03:13 99.2 84 20 108/69 (82) 92 Arterial Line 11/23/17 03:13 93 Non-Rebreather 15.00 11/23/17 03:13 80/62 (81) 11/23/17 03:00 85 11/23/17 02:04 80/62 (80) 11/23/17 01:00 83/66 (88) 11/23/17 00:00 82/62 (83) 11/22/17 23:00 87 11/22/17 23:00 80 18 102/65 (77) 99 11/22/17 23:00 99 Non-Rebreather 15.00 11/22/17 23:00 81/63 (82) 11/22/17 22:40 86 Simple Mask 6.00 11/22/17 22:00 111/76 (107) 11/22/17 21:30 100 11/22/17 21:30 98.0 93 20 131/95 (107) 99 11/22/17 21:30 99 Non-Rebreather 15.00 11/22/17 21:30 113/86 (106) 11/22/17 19:14 100 143/93 (110) 100 11/22/17 18:08 17 11/22/17 18:02 22 11/22/17 18:01 105 135/92 11/22/17 17:54 91 12 127/83 (98) 95 Nasal Cannula 2.00 11/22/17 17:53 102 17 121/78 (92) 95 Room Air 11/22/17 17:35 18 11/22/17 16:30 112 144/93 (110) 11/22/17 16:25 120 134/80 (98) 11/22/17 16:20 97.9 115 20 150/95 (113) 98 11/22/17 15:17 97.7 98 20 143/100 (114) 98 11/22/17 14:41 11/22/17 14:28 16 11/22/17 14:15 97 20 142/100 (114) 96 11/22/17 13:43 77 16 128/77 (94) 98 11/22/17 13:14 16 11/22/17 13:14 16 11/22/17 13:13 97 18 146/102 (117) 98 11/22/17 12:30 93 20 138/92 (107) 95 Room Air 11/22/17 12:18 103 20 154/104 (121) 98 Room Air 11/22/17 11:45 20 97 Room Air 11/22/17 11:25 97.2 110 24 174/98 (123) 100 Labs: Laboratory Tests Test 11/22/17 22:32 11/23/17 04:32 Activated Partial Thromboplast Time 82.5 SEC (24.3-30.1) 28.2 SEC (24.3-30.1) Total Creatine Kinase 624 U/L (39-308) 806 U/L (39-308) Creatine Kinase MB 134.8 NG/ML (0.5-3.6) 169.8 NG/ML (0.5-3.6) Creatine Kinase MB % 21.6 % (0.0-4.0) 21.1 % (0.0-4.0) Troponin I 13.80 NG/ML (0.02-0.05) 29.30 NG/ML (0.02-0.05) White Blood Count 12.1 TH/MM3 (4.0-11.0) Red Blood Count 5.13 MIL/MM3 (4.50-5.90) Hemoglobin 15.3 GM/DL (13.0-17.0) Hematocrit 45.0 % (39.0-51.0) Mean Corpuscular Volume 87.6 FL (80.0-100.0) Mean Corpuscular Hemoglobin 29.9 PG (27.0-34.0) Mean Corpuscular Hemoglobin Concent 34.1 % (32.0-36.0) Red Cell Distribution Width 14.0 % (11.6-17.2) Platelet Count 186 TH/MM3 (150-450) Mean Platelet Volume 8.3 FL (7.0-11.0) Neutrophils (%) (Auto) 76.6 % (16.0-70.0) Lymphocytes (%) (Auto) 14.9 % (9.0-44.0) Monocytes (%) (Auto) 7.8 % (0.0-8.0) Eosinophils (%) (Auto) 0.1 % (0.0-4.0) Basophils (%) (Auto) 0.6 % (0.0-2.0) Neutrophils # (Auto) 9.3 TH/MM3 (1.8-7.7) Lymphocytes # (Auto) 1.8 TH/MM3 (1.0-4.8) Monocytes # (Auto) 0.9 TH/MM3 (0-0.9) Eosinophils # (Auto) 0.0 TH/MM3 (0-0.4) Basophils # (Auto) 0.1 TH/MM3 (0-0.2) CBC Comment DIFF FINAL Differential Comment Hematology Comments Blood Urea Nitrogen 13 MG/DL (7-18) Creatinine 0.85 MG/DL (0.60-1.30) Random Glucose 110 MG/DL (74-106) Total Protein 6.1 GM/DL (6.4-8.2) Albumin 2.8 GM/DL (3.4-5.0) Calcium Level 7.8 MG/DL (8.5-10.1) Alkaline Phosphatase 66 U/L (45-117) Aspartate Amino Transf (AST/SGOT) 134 U/L (15-37) Alanine Aminotransferase (ALT/SGPT) 45 U/L (12-78) Total Bilirubin 0.5 MG/DL (0.2-1.0) Sodium Level 139 MEQ/L (136-145) Potassium Level 4.4 MEQ/L (3.5-5.1) Chloride Level 106 MEQ/L (98-107) Carbon Dioxide Level 23.5 MEQ/L (21.0-32.0) Anion Gap 10 MEQ/L (5-15) Estimat Glomerular Filtration Rate 95 ML/MIN (>89) Triglycerides Level 245 MG/DL (42-150) Cholesterol Level 178 MG/DL (120-200) LDL Cholesterol 101 MG/DL (0-99) HDL Cholesterol 28.5 MG/DL (40.0-60.0) Cholesterol/HDL Ratio 6.24 RATIO Result Diagram: 11/23/1743111/23/17431 (1) NSTEMI (non-ST elevated myocardial infarction) (2) Tobacco abuse (3) CHF (congestive heart failure) (4) Elevated LFTs (5) Cardiomyopathy (6) Abdominal pain Problem Qualifiers (1) Abdominal pain: Qualified Codes: R10.12 - Left upper quadrant pain Santa Franco MD Nov 23, 2017 09:35
--- NOTE | 2017-11-23 10:07 | RADRPT ---
EXAM DATE: 11/23/2017 10:03 AM EDT AGE/SEX: 52 years / Male INDICATIONS: Syncope. CLINICAL DATA: This is the patient's initial encounter. Patient reports that signs and symptoms have been present for 2 weeks and indicates a pain score of 0/10. MEDICAL/SURGICAL HISTORY: Hypertension. Arthritis. Head trauma. Ulcers. . Bilateral arthrosco pic repair of meniscus. Multiple bone fracture surgeries. COMPARISON: No prior exams available for comparison. VELOCITY PARAMETERS: ICA/CCA Ratio: Right 0.7 , Left 0.9 ICA: Right 47 cm/sec, Left 74 cm/sec CCA: Right 70 cm/sec, Left 79 cm/sec ECA: Right 93 cm/sec, Left 78 cm/sec Vertebral: Right 41 cm/sec antegrade, Left 22 cm/sec antegrade FINDINGS: There is no evidence for hemodynamically significant stenosis of either carotid artery. There is ante grade flow in the bilateral vertebral arteries. Mild atherosclerotic plaquing seen bilaterally. CONCL USION: 1. Right Internal Carotid Artery: No significant stenosis or atherosclerotic plaque is visualized. 2. Left Internal Carotid Artery: No significant stenosis or atherosclerotic plaque is visualized. Electronically signed by: Davey Gonzalez MD 11/23/2017 10:05 AM EDT
[2017-11-23 10:24] LABS: HEMOGLOBIN A1C 5.9 % (4.3-6.0)
--- NOTE | 2017-11-23 11:43 | MB ---
cc: Santa Franco MD DATE: 11/23/2017 REASON FOR CONSULTATION: Critical coronary artery disease. HISTORY OF PRESENT ILLNESS: Mr. Hurst is a very pleasant 52-year-old obese gentleman who has been having abdominal pain for the past 2 months and now presents with intermittent chest pain for the past 2 weeks. The patient was seen at [place] emergency room due to further exacerbation of his chest pain and abdominal pain and was transferred here urgently for further management. Initial troponins were negative, but with concern for an [id number] myocardial infarction, he was taken to the labor relations consultant emergently last night and underwent a coronary angiogram, which revealed a critical left main with associated right coronary artery disease in the setting of severe cardiomyopathy, estimated ejection fraction about 20-25% with a left ventricular aneurysm, which is heavily calcified. Additionally, the LAD was 100% occluded with no distal filling. During the procedure because of chest pain, an intraaortic balloon pump was placed and he was transferred to [facility] ICU on a nonrebreather oxygen mask for further management. I am being consulted for surgical opinion regarding his underlying coronary anatomy. At the present time, his pain is better. He is obviously very emotional and very tearful about his findings. 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 PAST MEDICAL HISTORY: Significant for: 1. Arthritis. 2. Hypertension. 3. Rectal fissure. ALLERGIES: THE PATIENT REPORTS NO KNOWN DRUG ALLERGIES. ADMISSION MEDICATIONS: Include: 1. Multivitamins. 2. Carafate. 3. Hydrochlorothiazide. 4. Protonix. SOCIAL HISTORY: Remarkable for smoking. Denies any excessive alcohol use or illicit drug use. REVIEW OF SYSTEMS: As above, all other parameters are negative. PHYSICAL EXAMINATION: VITAL SIGNS: On examination today, he is 177 cm tall, weighs 109 kilos. Blood pressure is 82/60 with a heart rate of 82, which is regular. He is on 14 liters nonrebreather, saturating 96%. HEENT: Normocephalic, atraumatic. Pupils round and reactive. Extraocular muscles intact. NECK: No cervical lymphadenopathy. Carotid bruits or JVD. CARDIOVASCULAR: Regular rate and rhythm. Normal S1, S2, without gallops, rubs, or murmurs. LUNGS: Bibasilar crackles, otherwise clear to auscultation bilaterally with good air exchange. ABDOMEN: Obese, otherwise soft, nontender, nondistended. Normoactive bowel sounds. No hepatosplenomegaly. EXTREMITIES: Bilateral femoral pulses are intact without cyanosis, clubbing or edema. No venous varicosities. NEUROLOGIC: Neurologically intact with no focal deficit. IMPRESSION: 1. Acute myocardial infarction (NSTEMI). 2. Cardiogenic shock with IABP support. 3. Severe cardiomyopathy with estimated ejection fraction 20%. 4. Left ventricular calcified apical aneurysm. 5. Hepatic steatosis. 6. Chronic nicotine use. 7. Polycythemia. 8. Hyperglycemia. PLAN: The clinical and angiographic findings were discussed in detail with the patient and his today. Reviewing his angiogram, he certainly has a viable target in the right coronary artery, but there is no identifiable LAD distal to the acute occlusion proximally, both in the antegrade shots or the retrograde shot from the right side. The bigger concern is the viability of the left side given his severe cardiomyopathy and the calcified ventricular aneurysm indicative of a chronic myocardial infarction. Given his severe cardiomyopathy and lack of distal target, as well as his current clinical status, I think surgical intervention would carry a very high risk. At this point, I would continue with IABP support, as well as maximize medical therapy. Allow his heart to heal and obtain a repeat echocardiogram to ascertain the degree of ventricular dysfunction. We will also send his records to [facility] to determine if he has other surgical options including transplantation versus high risk LVAD assisted angioplasty. We will continue to follow him with you and further plans as dictated. Thank you for allowing me to participate in the care of this patient. MD ANA [facility]MERT , 10:58 AM , 11:42 AM OLIVE
--- NOTE | 2017-11-23 12:09 | PD.CONS ---
HPI History of Present Illness This is a 52 year old obese male who came into the hospital on 10/22/2017 with severe abdominal pain onset 2 days before admission and continued to worsen as well as a gastric and epigastric burning sensation up into his chest. She did note symptoms of nausea but no vomiting and has had no previous GI workup. Patient is currently in the cardiac intensive care unit with elevated troponins and critical coronary artery disease maintained on an intra-aortic balloon pump for now managed per Dr. Eduardo. Patient is also on night heparin drip. Patient is currently receiving some test so information is being gathered from him and his who is at his bedside. Patient does note some weight loss around 10 pounds unknown cause. No history of ulcers in the past, does maintain decreased appetite and aggregating factors 2-3 days before he is admission to the hospital was fried spicy foods. Patient does note he has been on Protonix 40 mg twice daily and Carafate for reflux and GERD symptoms. Current hemoglobin is 15.3., AST 134 today normal on admission date which could be related to stress of his current cardiac situation versus medication, normal total bilirubin 0.5 ALT 45. Relieving factors are patient's Carafate and Protonix. No family history of colon cancer no previous EGD or colonoscopy. (Ksenia Peres) PFSH Past Medical History HTN prior hx of rectal fissure GERD Past Surgical History B arthroscopic knee sx anal fissure repair No previous EGD or colonoscopy (Ksenia Peres) Coded Allergies: No Known Allergies (Unverified Allergy, Unknown, 11/22/17) Family History mother had CT at age 40 and 60 and . Had also renal disease and DM father healthy No family history of colon cancer Social History quit smoking a few months ago, smoke 3ppd for many years denies any illegal drug use or alcohol use (Ksenia Peres) Review of Systems Gastrointestinal: COMPLAINS OF: Abdominal pain (Gastric and epigastric tenderness and some sharp pains off and on), Nausea (Decreased appetite) ( Ksenia Peres) GI Exam Vitals I&O Vital Signs Date Time Temp Pulse Resp B/P (MAP) Pulse Ox O2 Delivery O2 Flow Rate FiO2 11/23/17 11:27 75 11/23/17 11:00 96 Partial Non-Rebreather 14.00 11/23/17 11:00 73/60 (79) 11/23/17 11:00 98.0 75 16 99/67 (78) 96 73/60 (64) 11/23/17 10:07 96 Partial Rebreather 14.00 70 11/23/17 10:00 82/60 (79) 11/23/17 09:45 16 11/23/17 09:00 75/57 (73) 11/23/17 08:00 79/61 (80) 11/23/17 07:00 95 Partial Non-Rebreather 14.00 11/23/17 07:00 81/61 (84) 11/23/17 07:00 82 11/23/17 07:00 99.1 82 18 108/67 (81) 95 79/61 (67) 11/23/17 06:00 79/60 (80) 11/23/17 05:00 95 Partial Rebreather 14.00 11/23/17 05:00 85/65 (85) 11/23/17 04:00 83/65 (84) 11/23/17 03:13 99.2 84 20 108/69 (82) 92 Arterial Line 11/23/17 03:13 93 Non-Rebreather 15.00 11/23/17 03:13 80/62 (81) 11/23/17 03:00 85 11/23/17 02:04 80/62 (80) 11/23/17 01:00 83/66 (88) 11/23/17 00:00 82/62 (83) 11/22/17 23:00 87 11/22/17 23:00 80 18 102/65 (77) 99 11/22/17 23:00 99 Non-Rebreather 15.00 11/22/17 23:00 81/63 (82) 11/22/17 22:40 86 Simple Mask 6.00 11/22/17 22:00 111/76 (107) 11/22/17 21:30 100 11/22/17 21:30 98.0 93 20 131/95 (107) 99 11/22/17 21:30 99 Non-Rebreather 15.00 11/22/17 21:30 113/86 (106) 11/22/17 19:14 100 143/93 (110) 100 6/9/18 18:08 17 11/22/17 18:02 22 11/22/17 18:01 105 135/92 11/22/17 17:54 91 12 127/83 (98) 95 Nasal Cannula 2.00 11/22/17 17:53 102 17 121/78 (92) 95 Room Air 11/22/17 17:35 18 11/22/17 16:30 112 144/93 (110) 11/22/17 16:25 120 134/80 (98) 11/22/17 16:20 97.9 115 20 150/95 (113) 98 11/22/17 15:17 97.7 98 20 143/100 (114) 98 11/22/17 14:41 11/22/17 14:15 97 20 142/100 (114) 96 11/22/17 13:43 77 16 128/77 (94) 98 11/22/17 13:14 16 11/22/17 13:14 16 11/22/17 13:13 97 18 146/102 (117) 98 11/22/17 12:30 93 20 138/92 (107) 95 Room Air 11/22/17 12:18 103 20 154/104 (121) 98 Room Air I/O 11/22/17 11/22/17 11/22/17 11/23/17 11/23/17 11/23/17 06:59 14:59 22:59 06:59 14:59 22:59 Intake Total 1000 ml 1000 ml 239.2 ml 960 ml Balance 1000 ml 1000 ml 239.2 ml 960 ml Intake Oral 960 ml IV Total 1000 ml 1000 ml 239.2 ml Bladder Scan Volume Amount 460 ml Imaging Last Impressions Chest X-Ray 11/23/17 0000 Signed Impressions: CONCLUSION: Mild basilar atelectasis. Carotid Artery Ultrasound 11/23/17 0000 Signed Impressions: There is no evidence for hemodynamically significant stenosis of either carotid artery. There is antegrade flow in the bilateral vertebral arteries. Mild athe rosclerotic plaquing seen bilaterally. CONCLUSION: 1. Right Internal Carotid Artery: No significant stenosis or atherosclerotic p laque is visualized. 2. Left Internal Carotid Artery: No significant stenosis or atherosclerotic pl aque is visualized. Abdomen/Pelvis CT 11/22/17 1140 Signed Impressions: CONCLUSION: 1. Hepatomegaly and hepatic steatosis. 2. Nonobstructing right renal calculi, renal scarring and cysts. 3. Atherosclerosis. 4. Long-term stable tiny right lung nodules unchanged to 2013 characteristic o f benign process. 5. Calcified left ventricular apical infarct. Laboratory Test 11/22/17 14:08 11/22/17 15:12 11/22/17 16:23 11/22/17 22:32 Urine Collection Type CLEAN CATCH Urine Color YELLOW Urine Turbidity CLEAR Urine pH 7.0 Urine Specific [place] LESS/EQUAL 1.005 Urine Protein NEG mg/dL Urine Glucose (UA) NEG mg/dL Urine Ketones NEG mg/dL Urine Occult Blood TRACE Urine Nitrite NEG Urine Bilirubin NEG Urine Urobilinogen 0.2 MG/DL Urine Leukocyte Esterase NEG Urine RBC 0-3 /hpf Urine Squamous Epithelial Cells 0-5 /hpf Microscopic Urinalysis Comment CULT NOT INDICATED Total Creatine Kinase 232 U/L 624 U/L Creatine Kinase MB 50.4 NG/ML 134.8 NG/ML Troponin I 3.21 NG/ML 13.80 NG/ML Hepatitis A IgM Antibody NONREACTIVE Hepatitis B Surface Antigen NONREACTIVE Hepatitis B Core IgM Antibody NONREACTIVE Hepatitis C IgG Antibody NONREACTIVE White Blood Count 16.8 TH/MM3 Red Blood Count 5.76 MIL/MM3 Hemoglobin 17.1 GM/DL Hematocrit 51.7 % Mean Corpuscular Volume 89.7 FL Mean Corpuscular Hemoglobin 29.6 PG Mean Corpuscular Hemoglobin Concent 33.0 % Red Cell Distribution Width 13.0 % Platelet Count 237 TH/MM3 Mean Platelet Volume 7.8 FL Prothrombin Time 10.7 SEC Prothromb Time International Ratio 1.1 RATIO Activated Partial Thromboplast Time 27.5 SEC 82.5 SEC Creatine Kinase MB % 21.6 % Test 11/23/17 04:32 White Blood Count 12.1 TH/MM3 Red Blood Count 5.13 MIL/MM3 Hemoglobin 15.3 GM/DL Hematocrit 45.0 % Mean Corpuscular Volume 87.6 FL Mean Corpuscular Hemoglobin 29.9 PG Mean Corpuscular Hemoglobin Concent 34.1 % Red Cell Distribution Width 14.0 % Platelet Count 186 TH/MM3 Mean Platelet Volume 8.3 FL Neutrophils (%) (Auto) 76.6 % Lymphocytes (%) (Auto) 14.9 % Monocytes (%) (Auto) 7.8 % Eosinophils (%) (Auto) 0.1 % Basophils (%) (Auto) 0.6 % Neutrophils # (Auto) 9.3 TH/MM3 Lymphocytes # (Auto) 1.8 TH/MM3 Monocytes # (Auto) 0.9 TH/MM3 Eosinophils # (Auto) 0.0 TH/MM3 Basophils # (Auto) 0.1 TH/MM3 CBC Comment DIFF FINAL Differential Comment Hematology Comments Activated Partial Thromboplast Time 28.2 SEC Blood Urea Nitrogen 13 MG/DL Creatinine 0.85 MG/DL Random Glucose 110 MG/DL Total Protein 6.1 GM/DL Albumin 2.8 GM/DL Calcium Level 7.8 MG/DL Alkaline Phosphatase 66 U/L Aspartate Amino Transf (AST/SGOT) 134 U/L Alanine Aminotransferase (ALT/SGPT) 45 U/L Total Bilirubin 0.5 MG/DL Sodium Level 139 MEQ/L Potassium Level 4.4 MEQ/L Chloride Level 106 MEQ/L Carbon Dioxide Level 23.5 MEQ/L Anion Gap 10 MEQ/L Estimat Glomerular Filtration Rate 95 ML/MIN Total Creatine Kinase 806 U/L Creatine Kinase MB 169.8 NG/ML Creatine Kinase MB % 21.1 % Troponin I 29.30 NG/ML Triglycerides Level 245 MG/DL Cholesterol Level 178 MG/DL LDL Cholesterol 101 MG/DL HDL Cholesterol 28.5 MG/DL Cholesterol/HDL Ratio 6.24 RATIO Physical Examination HEENT: normocephalic; atraumatic; no jaundice. Obese NECK: Neck is supple, short CHEST: Diminished breath sounds in his bases CARDIAC: Regular rate and rhythm , patient has intra-aortic balloon pump via right groin ABDOMEN: Round, obese, soft, gastric and epigastric tenderness to light palpation no hepatosplenomegaly; bowel sounds are present in all four quadrants. EXTREMITIES: No clubbing, cyanosis, or edema. SKIN: Pale no rash; no jaundice. BUSINESS MANAGEMENT ASSOCIATE: No focal deficits; alert and oriented times three. Mild anxiety over current condition (Ksenia Peres) Assessment and Plan Assessment: (1) Elevated LFTs ICD Codes: R94.5 - Abnormal results of liver function studies (2) Abdominal pain ICD Codes: R10.9 - Unspecified abdominal pain Status: Acute Plan Symptoms of GERD uncontrolled even though patient has been on Protonix 40 twice daily and Carafate. Aggregating factors was greasy spicy food 2-3 days before admission to the hospital patient notes burning sensation gastric and epigastric which could have been uncontrolled GERD symptoms versus a stress ulcer. According to the record he his has metastatic cancer and he is quit his job to take care of her. He states this pain was uncontrolled and worsened 24 hours before admission. This could be related to his cardiac status which he is emergent coronary artery disease being managed with an an intra-aortic balloon pump. Patient is currently on a heparin drip Mild drop in hemoglobin but still very stable at 15.3 Transaminitis elevated AST which was normal on admission probably secondary to his medications versus shock. Secondary to cardiac event, he is also obese and may have some fatty liver disease. Plan Diet per attending PPI Anti-medic Carafate May need to consider EGD but this will need to be discussed in detail with cardiac team as to time. Will for now continue with GERD treatment Further recommendations to follow Patient was seen per myself and Dr. Peck, this note was written on his behalf (Ksenia Peres) Physician Comments Seen with zara Mccormack as above. Currently being evaluated for cardiac etiology. Please notify us if still symptomatic after stabilization. Thank you for the consult. (Kristen Peck MD) Problem Qualifiers (1) Abdominal pain: Qualified Codes: R10.12 - Left upper quadrant pain Ksenia Peres Nov 23, 2017 12:09 Kristen Peck MD Nov 23, 2017 14:40
[2017-11-23] MEDS: PANTOPRAZOLE SODIUM 40 MG VIAL IV PUSH SCH ×2 (13:26→20:08)
--- NOTE | 2017-11-23 14:28 | EKG ---
Date Performed: 11/23/2017 Time Performed: 06:24:08 PTAGE: 52 years EKG: Sinus rhythm Anteroseptal infarct - age undetermined Inferior/lateral ST-T changes may be due to myocardial ische karan Abnormal ECG NO PREVIOUS TRACING DOCTOR: Alex Joseph Interpretating Date/Time 11/23/2017 14:26:04
--- NOTE | 2017-11-23 14:42 | EKG ---
Date Performed: 11/22/2017 Time Performed: 16:28:06 PTAGE: 52 years EKG: SINUS TACHYCARDIA ANTEROSEPTAL MYOCARDIAL INFARCTION ABNORMAL ECG NO PREVIOUS TRACING DOCTOR: Alex Joseph Interpretating Date/Time 11/23/2017 14:39:02
--- NOTE | 2017-11-23 14:44 | EKG ---
Date Performed: 11/22/2017 Time Performed: 15:09:15 PTAGE: 52 years EKG: Sinus rhythm ANTEROSEPTAL MYOCARDIAL INFARCTION ABNORMAL ECG PREVIOUS TRACING : 05/30/1993 20.22 Since the previous tracing, no significant change noted DOCTOR: Alex Joseph Interpretating Date/Time 11/23/2017 14:40:45
[2017-11-23] MEDS ORDERED: FUROSEMIDE 40 MG/4 ML VIAL IV PUSH ONE (15:45)
[2017-11-23] MEDS: ATORVASTATIN 20 MG TAB PO SCH (20:08)
[2017-11-24] VITALS (9 sets, daily range): BP systolic 103–122; BP diastolic 71–82; PULSE 58–80; RESP 16–20; TEMP 97.6–98.3; O2SAT 90–99
[2017-11-24] MEDS: HEPARIN SODIUM - IV 10,000 UNITS/10 ML VIAL IV PUSH PRN ×3 (02:20→16:37)
[2017-11-24] MEDS: DEXMEDETOMIDINE 200 MCG in NS 48 ML IV PRN ×7 (02:39→20:02)
[2017-11-24] MEDS: MORPHINE SULFATE 4 MG/ML INJ IV PUSH PRN ×5 (04:56→20:07)
[2017-11-24 05:27] LABS: AUTOMATED NEUTROPHIL # 6.6 TH/MM3 (1.8-7.7); BASOPHIL # 0.1 TH/MM3 (0-0.2); BASOPHIL % 0.9 % (0.0-2.0); EOSINOPHIL % 0.5 % (0.0-4.0); HEMOGLOBIN 14.9 GM/DL (13.0-17.0); LYMPH % 25.5 % (9.0-44.0); LYMPHOCYTE # 2.7 TH/MM3 (1.0-4.8); MEAN CELL VOLUME 88.6 FL (80.0-100.0); MEAN CORPUSCULAR HEMOGLOBIN 30.6 PG (27.0-34.0); MEAN CORPUSCULAR HGB CONC 34.6 % (32.0-36.0); MEAN PLATELET VOLUME 7.8 FL (7.0-11.0); MONO % 10.3 % (0.0-8.0); MONOCYTE # 1.1 TH/MM3 (0-0.9); NEUT % 62.8 % (16.0-70.0); PLATELET COUNT 155 TH/MM3 (150-450); RED BLOOD COUNT 4.85 MIL/MM3 (4.50-5.90); RED CELL DISTRIBUTION WIDTH 13.7 % (11.6-17.2); WHITE BLOOD COUNT 10.5 TH/MM3 (4.0-11.0)
[2017-11-24 05:50] LABS: ALBUMIN 2.8 GM/DL (3.4-5.0); AST (GOT) 61 U/L (15-37); BICARBONATE 27.1 MEQ/L (21.0-32.0); BLOOD UREA NITROGEN 17 MG/DL (7-18); CALCIUM 8.3 MG/DL (8.5-10.1); CHLORIDE 102 MEQ/L (98-107); GLOMERULAR FILTRATION RATE 102 ML/MIN (>89); GLUCOSE,RANDOM 110 MG/DL (74-106); MAGNESIUM 2.1 MG/DL (1.5-2.5); SODIUM (NA) 137 MEQ/L (136-145)
[2017-11-24 05:52] LABS: ALT (GPT) 37 U/L (12-78); PHOSPHORUS 2.9 MG/DL (2.5-4.9)
[2017-11-24 05:54] LABS: ALKALINE PHOSPHATASE 59 U/L (45-117); TOTAL BILIRUBIN ADULT 0.5 MG/DL (0.2-1.0); TOTAL PROTEIN 6.3 GM/DL (6.4-8.2)
[2017-11-24] MEDS: HEPARIN 25,000 UNITS-D5W 250 ML - PREMIX IV PRN (07:02)
[2017-11-24] MEDS: SUCRALFATE 1 GM/10 ML CUP PO SCH ×4 (07:48→20:06)
[2017-11-24] MEDS: DOCUSATE SODIUM 50 MG/SENNA 8.6 MG TAB PO SCH ×3 (08:18→20:07)
[2017-11-24] MEDS: PANTOPRAZOLE SODIUM 40 MG VIAL IV PUSH SCH ×2 (08:18→20:06)
[2017-11-24] MEDS: ASPIRIN 81 MG CHEW TAB PO SCH (08:18)
[2017-11-24] MEDS: SODIUM CHLORIDE 0.9% FLUSH 10 ML FLUSH IV FLUSH SCH ×2 (08:19→20:03)
[2017-11-24] MEDS ORDERED: IOHEXOL 350 MG/ML 50 ML BTL (for Cath Lab) OTHER ONE (10:20)
--- NOTE | 2017-11-24 10:43 | HHI.GIFU ---
Subjective Remarks Pt resting in bed US tech at bedside Denies any continued epigastric pain Denies nausea, vomiting Denies acid reflux (Loulou Quinn) Objective Vitals I&O Vital Signs Date Time Temp Pulse Resp B/P (MAP) Pulse Ox O2 Delivery O2 Flow Rate FiO2 11/24/17 10:00 84/56 (85) 11/24/17 09:00 89/58 (85) 11/24/17 08:06 86/59 (83) 11/24/17 07:30 94 High Flow Nasal Cannula 20.00 55 11/24/17 07:21 Partial Non-Rebreather 20.00 55 11/24/17 07:17 97.6 62 18 113/71 (85) 94 11/24/17 07:16 89/60 (87) 11/24/17 07:00 80 11/24/17 06:00 89/62 (93) 11/24/17 05:00 84/61 (86) 11/24/17 04:00 90/60 (84) 11/24/17 03:00 60 11/24/17 03:00 97 20.00 40 11/24/17 03:00 98.2 61 18 103/71 (82) 90 Arterial Line 11/24/17 03:00 88/60 (87) 11/24/17 02:00 82/51 (80) 11/24/17 01:00 83/59 (82) 11/24/17 00:00 88/62 (89) 11/23/17 23:00 66 11/23/17 23:00 98.4 66 16 112/79 (90) 92 11/23/17 23:00 97 20.00 40 11/23/17 23:00 81/58 (82) 11/23/17 22:00 84/60 (84) 11/23/17 21:40 94 High Flow Nasal Cannula 20.00 55 11/23/17 21:00 82/62 (84) 11/23/17 20:00 77/55 (75) 11/23/17 19:00 96 20.00 40 11/23/17 19:00 80/54 (81) 11/23/17 19:00 75 11/23/17 19:00 98.3 76 18 112/75 (87) 92 Arterial Line 11/23/17 18:00 75/56 (75) 11/23/17 17:21 18 11/23/17 17:21 18 11/23/17 17:15 84/104 (83) 11/23/17 17:08 95 High Flow Nasal Cannula 20.00 55 11/23/17 16:15 96 High Flow Nasal Cannula 20.00 60 11/23/17 16:00 76/57 (80) 11/23/17 15:35 93 High Flow Nasal Cannula 20.00 65 11/23/17 15:00 70 11/23/17 15:00 75/59 (69) 11/23/17 15:00 95 20.00 65 11/23/17 15:00 98.5 78 20 108/73 (85) 93 75/59 (64) 11/23/17 14:00 79/59 (76) 11/23/17 13:19 83/59 (56) 11/23/17 13:00 94 Venturi Mask 6.00 50 11/23/17 12:00 75/63 (77) 11/23/17 11:27 75 11/23/17 11:00 96 Partial Non-Rebreather 14.00 11/23/17 11:00 73/60 (79) 11/23/17 11:00 98.0 75 16 99/67 (78) 96 73/60 (64) I/O 11/23/17 11/23/17 11/23/17 11/24/17 11/24/17 11/24/17 07:00 15:00 23:00 07:00 15:00 23:00 Intake Total 239.2 ml 960 ml 480 ml 869 ml Output Total 1585 ml 820 ml Balance 239.2 ml 960 ml -1105 ml 49 ml Intake Oral 960 ml 480 ml 480 ml IV Total 239.2 ml 389 ml Output Urine Total 1585 ml 820 ml Bladder Scan Volume Amount 460 ml # Voids 1 # Bowel Movements 0 0 Laboratory Laboratory Tests Test 11/23/17 13:26 11/23/17 18:45 11/24/17 00:57 11/24/17 05:17 Activated Partial Thromboplast Time 32.2 41.8 36.4 White Blood Count 10.5 Red Blood Count 4.85 Hemoglobin 14.9 Hematocrit 43.0 Mean Corpuscular Volume 88.6 Mean Corpuscular Hemoglobin 30.6 Mean Corpuscular Hemoglobin Concent 34.6 Red Cell Distribution Width 13.7 Platelet Count 155 Mean Platelet Volume 7.8 Neutrophils (%) (Auto) 62.8 Lymphocytes (%) (Auto) 25.5 Monocytes (%) (Auto) 10.3 Eosinophils (%) (Auto) 0.5 Basophils (%) (Auto) 0.9 Neutrophils # (Auto) 6.6 Lymphocytes # (Auto) 2.7 Monocytes # (Auto) 1.1 Eosinophils # (Auto) 0.0 Basophils # (Auto) 0.1 CBC Comment DIFF FINAL Differential Comment Blood Urea Nitrogen 17 Creatinine 0.80 Random Glucose 110 Total Protein 6.3 Albumin 2.8 Calcium Level 8.3 Phosphorus Level 2.9 Magnesium Level 2.1 Alkaline Phosphatase 59 Aspartate Amino Transf (AST/SGOT) 61 Alanine Aminotransferase (ALT/SGPT) 37 Total Bilirubin 0.5 Sodium Level 137 Potassium Level 4.0 Chloride Level 102 Carbon Dioxide Level 27.1 Anion Gap 8 Estimat Glomerular Filtration Rate 102 Lactic Acid Level 1.2 Test 11/24/17 09:21 Activated Partial Thromboplast Time 34.5 B-Type Natriuretic Peptide 142 Imaging Last Impressions Chest X-Ray 11/23/17 0000 Signed Impressions: CONCLUSION: Mild basilar atelectasis. Carotid Artery Ultrasound 11/23/17 0000 Signed Impressions: There is no evidence for hemodynamically significant stenosis of either carotid artery. There is antegrade flow in the bilateral vertebral arteries. Mild athe rosclerotic plaquing seen bilaterally. CONCLUSION: 1. Right Internal Carotid Artery: No significant stenosis or atherosclerotic p laque is visualized. 2. Left Internal Carotid Artery: No significant stenosis or atherosclerotic pl aque is visualized. Abdomen/Pelvis CT 11/22/17 1140 Signed Impressions: CONCLUSION: 1. Hepatomegaly and hepatic steatosis. 2. Nonobstructing right renal calculi, renal scarring and cysts. 3. Atherosclerosis. 4. Long-term stable tiny right lung nodules unchanged to 2013 characteristic o f benign process. 5. Calcified left ventricular apical infarct. Physical Exam HEENT: Normocephalic; atraumatic CHEST: Even/unlabored CARDIAC: RRR ABDOMEN: Obese, soft, nontender, bowel sounds active SKIN: Normal; no rash; no jaundice. SPLICER OPERATOR: Alert and oriented times three. (Loulou Quinn) Assessment and Plan Assessment: (1) Elevated LFTs ICD Codes: R94.5 - Abnormal results of liver function studies Status: Chronic (2) Abdominal pain ICD Codes: R10.9 - Unspecified abdominal pain Status: Acute Plan Assessment: - Epigastric/LUQ abdominal pain- intermittent- states no relation to PO intake. Ct abdomen and pelvis W IV contrast (11/22) Hepatomegaly and hepatic steatosis. Nonobstructing right renal calculi, renal scarring and cysts. Atherosclerosis. Long-term stable tiny right lung nodules unchanged to 2013 characteristic of benign process. Calcified left ventricular apical infarct. Pt has never had EGD before - Significant cardiac history- currently with IABP- cardiology and cardiothoracic surgery following - on Heparin gtt Pt is too unstable for endoscopic evaluation of possible gastric ulcers at this time. Recommend optimizing medical management with Protonix and Carafate. At this time symptoms have resolved, if they return consider H. Pylori stool antigen. Plan: Protonix Carafate Advance diet as tolerated Too unstable for GI procedures, we will sign off Please reconsult as needed Pt has been seen and examined by myself and Dr. Peck and this note is written on his behalf (Loulou Quinn) Physician Comments As above, please notify us if needed . (Kristen Peck MD) Problem Qualifiers (1) Abdominal pain: Qualified Codes: R10.12 - Left upper quadrant pain Loulou Quinn Nov 24, 2017 10:43 Kristen Peck MD Nov 24, 2017 11:49
[2017-11-24 10:44] LABS: TROPONIN I 11.1 NG/ML (0.02-0.05)
[2017-11-24] MEDS ORDERED: RESP: ALBUTEROL 2.5 MG/IPRATROPIUM 0.5 MG NEB (PRN) NEB (12:30)
--- NOTE | 2017-11-24 12:48 | HHI.CCPN ---
Subjective Remarks/Hospital Course 52-year-old male with past medical history of hypertension and tobacco use disorder, presents with severe abdominal pain for the past 2 days. He has been having abdominal pain which started about 2 months ago. 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 He is concerned about having a stress ulcer. He describes the pain is in his stomach as burning sensation, goes up his chest, /10, feels like he is being "hit w a sludge hammer" in both chest and stomach. Admits to 20 lbs weight loss, dysphasia with solids only, nausea but no vomiting. Hasn't seen a GI physician. Pt states his pain is so bad that he cannot walk from the room to the bathroom, he states that he feels the reflux up his throat and has a very nasty taste in his mouth. He cannot lay flat because the pain gets worst. The initial troponins were elevated and he was emergently seen by branch service specialist. He did not meet criteria for STEMI, but due to his ongoing chest pain, he was urgently transferred to [facility] for urgent left heart catheterization. He has revealed critical left main and ostial proximal right coronary artery disease, critically elevated left ventricular end diastolic pressure, ejection fraction of 25-30%, and successful placement of an intraaortic balloon pump with immediate resolution of the patient's chest pain and dyspnea. The cardiothoracic surgery consultation is pending. Subjective: 11/23 Denies CP or SOB now. Hasn't voided, urinary retention 500, placing [place]. On Precedex due to anxiety/agitated delirium/uncooperative with bedrest while IABP in place. CVS consult pending. C/O back pain, saying hospital bed bothers his back 11/24 Patient denies any CP/SOB, on IABP 1: 1. On Heparin and Precedex drips. Objective Vital Signs Date Time Temp Pulse Resp B/P (MAP) Pulse Ox O2 Delivery O2 Flow Rate FiO2 11/24/17 11:00 70 11/24/17 11:00 Partial Non-Rebreather 20.00 55 11/24/17 11:00 91/67 (92) 11/24/17 11:00 97.8 20 96 Intake and Output 11/24/17 11/24/17 11/25/17 08:00 16:00 00:00 Intake Total 869 ml Output Total 820 ml Balance 49 ml Result Diagram: 11/24/17 0517 11/24/17 0517 Other Results Laboratory Tests Test 11/23/17 13:26 11/23/17 18:45 11/24/17 00:57 11/24/17 05:17 Activated Partial Thromboplast Time 32.2 SEC 41.8 SEC 36.4 SEC White Blood Count 10.5 TH/MM3 Red Blood Count 4.85 MIL/MM3 Hemoglobin 14.9 GM/DL Hematocrit 43.0 % Mean Corpuscular Volume 88.6 FL Mean Corpuscular Hemoglobin 30.6 PG Mean Corpuscular Hemoglobin Concent 34.6 % Red Cell Distribution Width 13.7 % Platelet Count 155 TH/MM3 Mean Platelet Volume 7.8 FL Neutrophils (%) (Auto) 62.8 % Lymphocytes (%) (Auto) 25.5 % Monocytes (%) (Auto) 10.3 % Eosinophils (%) (Auto) 0.5 % Basophils (%) (Auto) 0.9 % Neutrophils # (Auto) 6.6 TH/MM3 Lymphocytes # (Auto) 2.7 TH/MM3 Monocytes # (Auto) 1.1 TH/MM3 Eosinophils # (Auto) 0.0 TH/MM3 Basophils # (Auto) 0.1 TH/MM3 CBC Comment DIFF FINAL Differential Comment Blood Urea Nitrogen 17 MG/DL Creatinine 0.80 MG/DL Random Glucose 110 MG/DL Total Protein 6.3 GM/DL Albumin 2.8 GM/DL Calcium Level 8.3 MG/DL Phosphorus Level 2.9 MG/DL Magnesium Level 2.1 MG/DL Alkaline Phosphatase 59 U/L Aspartate Amino Transf (AST/SGOT) 61 U/L Alanine Aminotransferase (ALT/SGPT) 37 U/L Total Bilirubin 0.5 MG/DL Sodium Level 137 MEQ/L Potassium Level 4.0 MEQ/L Chloride Level 102 MEQ/L Carbon Dioxide Level 27.1 MEQ/L Anion Gap 8 MEQ/L Estimat Glomerular Filtration Rate 102 ML/MIN Lactic Acid Level 1.2 mmol/L Test 11/24/17 09:21 Activated Partial Thromboplast Time 34.5 SEC Total Creatine Kinase 161 U/L Troponin I 11.10 NG/ML B-Type Natriuretic Peptide 142 PG/ML Imaging Last Impressions Chest X-Ray 11/23/17 0000 Signed Impressions: CONCLUSION: Mild basilar atelectasis. Carotid Artery Ultrasound 11/23/17 0000 Signed Impressions: There is no evidence for hemodynamically significant stenosis of either carotid artery. There is antegrade flow in the bilateral vertebral arteries. Mild athe rosclerotic plaquing seen bilaterally. CONCLUSION: 1. Right Internal Carotid Artery: No significant stenosis or atherosclerotic p laque is visualized. 2. Left Internal Carotid Artery: No significant stenosis or atherosclerotic pl aque is visualized. Abdomen/Pelvis CT 11/22/17 1140 Signed Impressions: CONCLUSION: 1. Hepatomegaly and hepatic steatosis. 2. Nonobstructing right renal calculi, renal scarring and cysts. 3. Atherosclerosis. 4. Long-term stable tiny right lung nodules unchanged to 2013 characteristic o f benign process. 5. Calcified left ventricular apical infarct. Objective Remarks GENERAL: Well-nourished, well-developed patient, lying in bed in no acute resp distress SKIN: Warm and dry, adequately perfused HEAD: Normocephalic. EYES: No scleral icterus. No injection or drainage. NECK: Supple, trachea midline. No JVD or lymphadenopathy. CARDIOVASCULAR: Regular rate and rhythm , IABP audible, no murmur, sinus on monitor. RESPIRATORY: Breath sounds equal bilaterally. No accessory muscle use. GASTROINTESTINAL: Abdomen soft, non-tender, nondistended. Bowel sounds present. MUSCULOSKELETAL: No cyanosis, or edema. IABP R groin with blood staining to gauze but no ecchymosis or hematoma. NEURO EXAM: Awake, alert, moves all extremities without focal deficit. A/P Problem List: (1) NSTEMI (non-ST elevated myocardial infarction) ICD Code: I21.4 - Non-ST elevation (NSTEMI) myocardial infarction Status: Acute (2) Elevated LFTs ICD Code: R94.5 - Abnormal results of liver function studies Status: Chronic (3) Cardiomyopathy ICD Code: I42.9 - Cardiomyopathy, unspecified Status: Acute Permanent Comment: acute on chronic Last Edited By: Josette Cano on Nov 23, 2017 20:39 (4) Tobacco abuse ICD Code: Z72.0 - Tobacco use Status: Acute (5) CHF (congestive heart failure) ICD Code: I50.9 - Heart failure, unspecified Status: Acute (6) Cardiogenic shock ICD Code: R57.0 - Cardiogenic shock Status: Acute (7) Respiratory insufficiency ICD Code: R06.89 - Other abnormalities of breathing Status: Acute Assessment and Plan Neuro: Awake and alert. On Peridex drip for agitation/Anxiety- monitor neuro status. Pulm: Oxygen PRN keep sats >92% Bronchodilators PRN CXR: Mild bibasilar atelectasis CV: NSTEMI/Cardiogenic shock CAD Dyslipidemia -Status post emergent cardiac catheterization -Multivessel disease/cardiomyopathy -CTS: Dr. Franco- Evaluate for transfer to [facility] for high risk supported PCI vs high risk surgery vs transplant candidacy. -Aspirin, atorvastatin -Continue Heparin drip- Monitor PTT per protocol. -IABP :1:1 Urinary retention Monitor renal function, electrolytes replacement per protocol. GI: Elevated LFT's...trending down. Hepatitis serology negative. GI signed off- unstable for procedures per GI On PO diet, on Protonix 40mg Q12 ID: Monitor for signs of infections ( Fever, WBC) Panculture if spikes a fever Heme: Monitor CBC, coags- On Heparin drip Endo: SI if needed for glycemic control Prophylaxis= GI prophylaxis- on Protonix 40mg Q12 DVT prophylaxis- on heparin drip Level 3 Problem Qualifiers (1) CHF (congestive heart failure): Suzie Lazar MD Nov 24, 2017 12:48
--- NOTE | 2017-11-24 13:15 | PD.CARD.PN ---
Subjective Subjective Remarks asleep in nad Objective Medications Current Medications Medications (Trade) Dose Ordered Sig/Nancy Route Start Time Stop Time Status Last Admin (Reglan Inj) 5 mg Q6H PRN IV PUSH 11/22/17 13:30 (Narcan Inj) 0.4 mg UNSCH PRN IV PUSH 11/22/17 13:30 (Valorie-Colace) 1 tab BID PO 11/22/17 21:00 11/23/17 20:08 (Milk Of Magnesia Liq) 30 ml Q12H PRN PO 11/22/17 13:30 (Senokot) 17.2 mg Q12H PRN PO 11/22/17 13:30 (Dulcolax Supp) 10 mg DAILY PRN RECTAL 11/22/17 13:30 (Lactulose Liq) 30 ml DAILY PRN PO 11/22/17 13:30 (Carafate Liq) 1 gm ACHS PO 11/22/17 21:00 11/24/17 12:30 (Coreg) 6.25 mg Q12HR PO 11/22/17 21:00 Future Hold (Vasotec Inj) 1.25 mg Q6H PRN IV PUSH 11/22/17 16:30 (Lipitor) 20 mg HS PO 11/22/17 21:00 11/23/17 20:08 (Nitrostat Sl) 0.4 mg Q5M PRN SL 11/22/17 17:45 11/22/17 16:36 Nitroglycerin/ Dextrose 250 ml @ 1.5 mls/hr TITRATE PRN IV 11/22/17 17:45 11/22/17 18:01 (NS Flush) 2 ml UNSCH PRN IV FLUSH 11/22/17 21:00 (NS Flush) 2 ml BID IV FLUSH 11/22/17 21:00 11/24/17 08:19 (Aspirin Chew) 162 mg DAILY PO 11/23/17 09:00 11/24/17 08:18 Dexmedetomidine HCl 200 mcg/ Sodium Chloride 50 ml @ 5.44 mls/hr TITRATE PRN IV 11/22/17 22:30 11/24/17 10:54 Heparin Sodium/ Dextrose 250 ml @ 10 mls/hr TITRATE PRN IV 11/23/17 06:30 11/24/17 07:02 (Heparin Inj) 5,000 units UNSCH PRN IV PUSH 11/23/17 06:30 (Heparin Inj) 2,500 units UNSCH PRN IV PUSH 11/23/17 06:30 11/24/17 10:22 (Zofran Odt) 4 mg Q6H PRN PO 11/23/17 11:15 (Protonix Inj) 40 mg Q12HR IV PUSH 11/23/17 12:15 11/24/17 08:18 (Morphine Inj) 4 mg Q3H PRN IV PUSH 11/23/17 16:30 11/24/17 09:43 (Roxicodone) 5 mg Q4H PRN PO 11/23/17 15:45 11/24/17 11:13 (Duoneb Neb) 1 ampule Q4HR NEB PRN NEB 11/24/17 12:30 UNV Vital Signs / I&O Vital Signs Date Time Temp Pulse Resp B/P (MAP) Pulse Ox O2 Delivery O2 Flow Rate FiO2 11/24/17 12:00 94/65 (94) 11/24/17 11:00 70 11/24/17 11:00 Partial Non-Rebreather 20.00 55 11/24/17 11:00 91/67 (92) 11/24/17 11:00 97.8 62 20 116/80 (92) 96 11/24/17 10:00 84/56 (85) 11/24/17 09:00 89/58 (85) 11/24/17 08:06 86/59 (83) 11/24/17 07:30 94 High Flow Nasal Cannula 20.00 55 11/24/17 07:21 Partial Non-Rebreather 20.00 55 11/24/17 07:17 97.6 62 18 113/71 (85) 94 11/24/17 07:16 89/60 (87) 11/24/17 07:00 80 11/24/17 06:00 89/62 (93) 11/24/17 05:00 84/61 (86) 11/24/17 04:00 90/60 (84) 11/24/17 03:00 60 11/24/17 03:00 97 20.00 40 11/24/17 03:00 98.2 61 18 103/71 (82) 90 Arterial Line 11/24/17 03:00 88/60 (87) 6/11/18 02:00 82/51 (80) 11/24/17 01:00 83/59 (82) 11/24/17 00:00 88/62 (89) 11/23/17 23:00 66 11/23/17 23:00 98.4 66 16 112/79 (90) 92 11/23/17 23:00 97 20.00 40 11/23/17 23:00 81/58 (82) 11/23/17 22:00 84/60 (84) 11/23/17 21:40 94 High Flow Nasal Cannula 20.00 55 11/23/17 21:00 82/62 (84) 11/23/17 20:00 77/55 (75) 11/23/17 19:00 96 20.00 40 11/23/17 19:00 80/54 (81) 11/23/17 19:00 75 11/23/17 19:00 98.3 76 18 112/75 (87) 92 Arterial Line 11/23/17 18:00 75/56 (75) 11/23/17 17:21 18 11/23/17 17:21 18 11/23/17 17:15 84/104 (83) 11/23/17 17:08 95 High Flow Nasal Cannula 20.00 55 11/23/17 16:15 96 High Flow Nasal Cannula 20.00 60 11/23/17 16:00 76/57 (80) 11/23/17 15:35 93 High Flow Nasal Cannula 20.00 65 11/23/17 15:00 70 11/23/17 15:00 75/59 (69) 11/23/17 15:00 95 20.00 65 11/23/17 15:00 98.5 78 20 108/73 (85) 93 75/59 (64) 11/23/17 14:00 79/59 (76) 11/23/17 13:19 83/59 (56) I/O 11/23/17 11/23/17 11/23/17 11/24/17 11/24/17 11/24/17 07:00 15:00 23:00 07:00 15:00 23:00 Intake Total 239.2 ml 960 ml 480 ml 869 ml Output Total 1585 ml 820 ml Balance 239.2 ml 960 ml -1105 ml 49 ml Intake Oral 960 ml 480 ml 480 ml IV Total 239.2 ml 389 ml Output Urine Total 1585 ml 820 ml Bladder Scan Volume Amount 460 ml # Voids 1 # Bowel Movements 0 0 Physical Exam GENERAL: SKIN: Warm and dry. HEAD: Normocephalic. EYES: No scleral icterus. No injection or drainage. NECK: Supple, trachea midline. No JVD or lymphadenopathy. CARDIOVASCULAR: Regular rate and rhythm without murmurs, gallops, or rubs. RESPIRATORY: Breath sounds equal bilaterally. No accessory muscle use. GASTROINTESTINAL: Abdomen soft, non-tender, nondistended. MUSCULOSKELETAL: No cyanosis, or edema. BACK: Nontender without obvious deformity. No CVA tenderness. Laboratory Laboratory Tests Test 11/23/17 13:26 11/23/17 18:45 11/24/17 00:57 11/24/17 05:17 Activated Partial Thromboplast Time 32.2 SEC 41.8 SEC 36.4 SEC White Blood Count 10.5 TH/MM3 Red Blood Count 4.85 MIL/MM3 Hemoglobin 14.9 GM/DL Hematocrit 43.0 % Mean Corpuscular Volume 88.6 FL Mean Corpuscular Hemoglobin 30.6 PG Mean Corpuscular Hemoglobin Concent 34.6 % Red Cell Distribution Width 13.7 % Platelet Count 155 TH/MM3 Mean Platelet Volume 7.8 FL Neutrophils (%) (Auto) 62.8 % Lymphocytes (%) (Auto) 25.5 % Monocytes (%) (Auto) 10.3 % Eosinophils (%) (Auto) 0.5 % Basophils (%) (Auto) 0.9 % Neutrophils # (Auto) 6.6 TH/MM3 Lymphocytes # (Auto) 2.7 TH/MM3 Monocytes # (Auto) 1.1 TH/MM3 Eosinophils # (Auto) 0.0 TH/MM3 Basophils # (Auto) 0.1 TH/MM3 CBC Comment DIFF FINAL Differential Comment Blood Urea Nitrogen 17 MG/DL Creatinine 0.80 MG/DL Random Glucose 110 MG/DL Total Protein 6.3 GM/DL Albumin 2.8 GM/DL Calcium Level 8.3 MG/DL Phosphorus Level 2.9 MG/DL Magnesium Level 2.1 MG/DL Alkaline Phosphatase 59 U/L Aspartate Amino Transf (AST/SGOT) 61 U/L Alanine Aminotransferase (ALT/SGPT) 37 U/L Total Bilirubin 0.5 MG/DL Sodium Level 137 MEQ/L Potassium Level 4.0 MEQ/L Chloride Level 102 MEQ/L Carbon Dioxide Level 27.1 MEQ/L Anion Gap 8 MEQ/L Estimat Glomerular Filtration Rate 102 ML/MIN Lactic Acid Level 1.2 mmol/L Test 11/24/17 09:21 Activated Partial Thromboplast Time 34.5 SEC Total Creatine Kinase 161 U/L Troponin I 11.10 NG/ML B-Type Natriuretic Peptide 142 PG/ML Assessment and Plan Problem List: (1) NSTEMI (non-ST elevated myocardial infarction) ICD Codes: I21.4 - Non-ST elevation (NSTEMI) myocardial infarction Status: Acute (2) Tobacco abuse ICD Codes: Z72.0 - Tobacco use Status: Acute (3) CHF (congestive heart failure) ICD Codes: I50.9 - Heart failure, unspecified Status: Acute (4) Elevated LFTs ICD Codes: R94.5 - Abnormal results of liver function studies Status: Chronic (5) Cardiomyopathy ICD Codes: I42.9 - Cardiomyopathy, unspecified Status: Acute Permanent Comment: acute on chronic Last Edited By: Josette Cano on Nov 23, 2017 20:39 (6) Abdominal pain ICD Codes: R10.9 - Unspecified abdominal pain Status: Acute Assessment and Plan 1.) Severe left main and 3 vessel cad/cardiomyopathy - continue aspirin, iv heparin, iabp; statin held due to elevated lfts, beta sim held due to decompensated chf; d/w Dr Franco, high risk for cabg, Dr Franco will d/w UF, transfer for possible options, including high risk pci with lvad, high risk cabg , lvad to transplant, f/u echo, carotid us without significant disease, patient strongly advised to stp smoking Problem Qualifiers (1) CHF (congestive heart failure): (2) Abdominal pain: Qualified Codes: R10.12 - Left upper quadrant pain Jack Eduardo MD Nov 24, 2017 13:15
--- NOTE | 2017-11-24 14:47 | PD.CAR.PN ---
CVT Progress Note Subjective/Hospital Course: 52-year-old obese gentleman who has been having abdominal pain for the past 2 months and now presents with intermittent chest pain for the past 2 weeks. The patient was seen at [facility] due to further exacerbation of his chest pain and abdominal pain and was transferred here urgently for further management. Initial troponins were negative, but with concern for an non-ST- segment myocardial infarction, he was taken to the laundry laborer emergently last night and underwent a coronary angiogram, which revealed a critical left main with associated right coronary artery disease in the setting of severe cardiomyopathy, estimated ejection fraction about 20-25% with a left ventricular aneurysm, which is heavily calcified. Additionally, the LAD was 100% occluded with no distal filling. During the procedure because of chest pain, an intraaortic balloon pump was placed and he was transferred to CV ICU. We were consulted for for surgical opinion regarding his underlying coronary anatomy. 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 Will evaluate transfer to [facility] for high risk supported PCI vs high risk surgery vs transplant candidacy. 11/24 Echo pending IABP 1:1 on high flow 02 pain free at this time Objective: GENERAL: A&O x 3 SKIN: Warm and dry. HEAD: Normocephalic. EYES: No scleral icterus. No injection or drainage. NECK: Supple, trachea midline. No JVD or lymphadenopathy. CARDIOVASCULAR: Regular rate and rhythm without murmurs, gallops, or rubs. IABP right groin, with 1:1 augmentation + distal pulses RESPIRATORY: Breath sounds equal bilaterally. No accessory muscle use. GASTROINTESTINAL: Abdomen soft, non-tender, nondistended. MUSCULOSKELETAL: No cyanosis, or edema. BACK: Nontender without obvious deformity. No CVA tenderness. Vital Signs Date Time Temp Pulse Resp B/P (MAP) Pulse Ox O2 Delivery O2 Flow Rate FiO2 11/24/17 14:00 97/66 (95) 11/24/17 13:00 88/59 (87) 11/24/17 12:00 94/65 (94) 11/24/17 11:00 70 11/24/17 11:00 Partial Non-Rebreather 20.00 55 11/24/17 11:00 91/67 (92) 11/24/17 11:00 97.8 62 20 116/80 (92) 96 11/24/17 10:00 84/56 (85) 11/24/17 09:00 89/58 (85) 11/24/17 08:06 86/59 (83) 11/24/17 07:30 94 High Flow Nasal Cannula 20.00 55 11/24/17 07:21 Partial Non-Rebreather 20.00 55 11/24/17 07:17 97.6 62 18 113/71 (85) 94 11/24/17 07:16 89/60 (87) 11/24/17 07:00 80 11/24/17 06:00 89/62 (93) 11/24/17 05:00 84/61 (86) 11/24/17 04:00 90/60 (84) 11/24/17 03:00 60 11/24/17 03:00 97 20.00 40 11/24/17 03:00 98.2 61 18 103/71 (82) 90 Arterial Line 11/24/17 03:00 88/60 (87) 11/24/17 02:00 82/51 (80) 11/24/17 01:00 83/59 (82) 11/24/17 00:00 88/62 (89) 11/23/17 23:00 66 11/23/17 23:00 98.4 66 16 112/79 (90) 92 11/23/17 23:00 97 20.00 40 11/23/17 23:00 81/58 (82) 11/23/17 22:00 84/60 (84) 11/23/17 21:40 94 High Flow Nasal Cannula 20.00 55 11/23/17 21:00 82/62 (84) 11/23/17 20:00 77/55 (75) 11/23/17 19:00 96 20.00 40 11/23/17 19:00 80/54 (81) 11/23/17 19:00 75 11/23/17 19:00 98.3 76 18 112/75 (87) 92 Arterial Line 11/23/17 18:00 75/56 (75) 11/23/17 17:21 18 11/23/17 17:21 18 11/23/17 17:15 84/104 (83) 11/23/17 17:08 95 High Flow Nasal Cannula 20.00 55 11/23/17 16:15 96 High Flow Nasal Cannula 20.00 60 11/23/17 16:00 76/57 (80) 11/23/17 15:35 93 High Flow Nasal Cannula 20.00 65 11/23/17 15:00 70 11/23/17 15:00 75/59 (69) 11/23/17 15:00 95 20.00 65 11/23/17 15:00 98.5 78 20 108/73 (85) 93 75/59 (64) Labs: Laboratory Tests Test 11/24/17 05:17 11/24/17 09:21 White Blood Count 10.5 TH/MM3 (4.0-11.0) Red Blood Count 4.85 MIL/MM3 (4.50-5.90) Hemoglobin 14.9 GM/DL (13.0-17.0) Hematocrit 43.0 % (39.0-51.0) Mean Corpuscular Volume 88.6 FL (80.0-100.0) Mean Corpuscular Hemoglobin 30.6 PG (27.0-34.0) Mean Corpuscular Hemoglobin Concent 34.6 % (32.0-36.0) Red Cell Distribution Width 13.7 % (11.6-17.2) Platelet Count 155 TH/MM3 (150-450) Mean Platelet Volume 7.8 FL (7.0-11.0) Neutrophils (%) (Auto) 62.8 % (16.0-70.0) Lymphocytes (%) (Auto) 25.5 % (9.0-44.0) Monocytes (%) (Auto) 10.3 % (0.0-8.0) Eosinophils (%) (Auto) 0.5 % (0.0-4.0) Basophils (%) (Auto) 0.9 % (0.0-2.0) Neutrophils # (Auto) 6.6 TH/MM3 (1.8-7.7) Lymphocytes # (Auto) 2.7 TH/MM3 (1.0-4.8) Monocytes # (Auto) 1.1 TH/MM3 (0-0.9) Eosinophils # (Auto) 0.0 TH/MM3 (0-0.4) Basophils # (Auto) 0.1 TH/MM3 (0-0.2) CBC Comment DIFF FINAL Differential Comment Blood Urea Nitrogen 17 MG/DL (7-18) Creatinine 0.80 MG/DL (0.60-1.30) Random Glucose 110 MG/DL (74-106) Total Protein 6.3 GM/DL (6.4-8.2) Albumin 2.8 GM/DL (3.4-5.0) Calcium Level 8.3 MG/DL (8.5-10.1) Phosphorus Level 2.9 MG/DL (2.5-4.9) Magnesium Level 2.1 MG/DL (1.5-2.5) Alkaline Phosphatase 59 U/L (45-117) Aspartate Amino Transf (AST/SGOT) 61 U/L (15-37) Alanine Aminotransferase (ALT/SGPT) 37 U/L (12-78) Total Bilirubin 0.5 MG/DL (0.2-1.0) Sodium Level 137 MEQ/L (136-145) Potassium Level 4.0 MEQ/L (3.5-5.1) Chloride Level 102 MEQ/L (98-107) Carbon Dioxide Level 27.1 MEQ/L (21.0-32.0) Anion Gap 8 MEQ/L (5-15) Estimat Glomerular Filtration Rate 102 ML/MIN (>89) Lactic Acid Level 1.2 mmol/L (0.4-2.0) Activated Partial Thromboplast Time 34.5 SEC (24.3-30.1) Total Creatine Kinase 161 U/L (39-308) Troponin I 11.10 NG/ML (0.02-0.05) B-Type Natriuretic Peptide 142 PG/ML (0-100) Result Diagram: 11/24/17 0511/24/17516 (1) NSTEMI (non-ST elevated myocardial infarction) Plan: ASA, statin , Heparin gtt no BB for now with decompensated CHF await echo results then will fax records / and load films to [facility] in [place] / accepting MD Dr Lobito Wallace (2) Tobacco abuse Plan: smoking cessation (3) CHF (congestive heart failure) (4) Elevated LFTs Plan: improving, neg hep panel (5) Cardiomyopathy (6) Abdominal pain Plan: followed by GI/ GERD Problem Qualifiers (1) CHF (congestive heart failure): (2) Abdominal pain: Qualified Codes: R10.12 - Left upper quadrant pain Amarilis Galindo Nov 24, 2017 14:47
--- NOTE | 2017-11-24 16:30 | MD ---
cc: Suzie Lazar MD DATE OF DISCHARGE: DATE OF : 1965 BRIEF HISTORY: The patient is a 52-year-old male with a past medical history of hypertension and tobacco use, who presented with severe abdominal pain for 2 days and he described the pain as a burning sensation radiating to his chest, 9/10 on the pain scale. He also reported a 20-pound weight loss, dysphagia with solids and nausea, but no evidence of any emesis. HOSPITAL COURSE: His initial troponins were elevated and he was seen by a presser and blocker knitted goods; however, the patient did not meet the criteria for STEMI, but due to ongoing chest pain, he was urgently transferred to [facility] for a left heart catheterization. The patient underwent a cardiac catheterization by Dr. Eduardo which showed critical left main and ostial proximal right coronary artery disease, critically elevated left ventricular end-diastolic pressure equal to 42 mmHg with ejection fraction of 25-30%. In addition, the patient had intraaortic balloon pump placement at 1:1 with immediate resolution of the patient's chest pain and dyspnea. He was seen by Dr. Franco from Cardiothoracic Surgery and, given his severe cardiomyopathy and lack of a distal target, he was deemed high risk for any surgical intervention. During his hospital course, he was placed on a Precedex drip for anxiety/agitation. In addition, the patient was on a heparin drip. He was also seen by GI Service for abdominal pain and patient had CT abdomen and pelvis on arrival which showed hepatomegaly and hepatic steatosis in addition to nonobstructing right renal calculi and calcified left ventricular apical infarct. The patient was placed on Protonix 40 mg every 12 for GI prophylaxis. His chest x-ray on 11/23/2017 showed mild basilar atelectasis and carotid ultrasound showed no significant stenosis bilaterally. DISPOSITION: Per Dr. Franco's recommendations, the patient is being transferred today to the [facility] at [place] for evaluation of surgery versus high risk supported PCI versus transplant candidacy. MD MITRA Pittman/YULI , 04:03 PM , 04:29 PM
--- NOTE | 2017-11-24 16:49 | ECHRPT ---
Indication: CAD, S/P MA CONCLUSIONS Normal left ventricular size. The left ventricular systolic function is severely reduced with an estimated ejection fraction in th e range of 25-30%. Large apical aneurysm involving the distal half od the anterior wall and septum. The left ventricular systolic function is severely reduced with an estimated ejection fraction less than 20%. The interatrial septum not well visualized. The aortic root and proximal ascending aorta are not well visualized. Trace mitral valve regurgitation. There is trace tricuspid valve regurgitation. The estimated pulmonary arterial pressure is 30 mmHg. The pulmonary valve is not well visualized. The inferior vena cava was not well visualized. BP: 89 / 58 HR: 62 Rhythm: Sinus MEASUREMENTS (Male / Female) Normal Values Technical Quality:Fair 2D ECHO LV Diastolic Diameter PLAX 3.8 cm 4.2 - 5.9 / 3.9 - 5.3 cm LV Systolic Diameter PLAX 3.0 cm IVS Diastolic Thickness 1.2 cm 0.6 - 1.0 / 0.6 - 0.9 cm LVPW Diastolic Thickness 1.2 cm 0.6 - 1.0 / 0.6 - 0.9 cm LV Relative Wall Thickness 0.6 RV Internal Dim ED PLAX 2.8 cm LVOT Diameter 2.3 cm Aortic Root Diameter 3.0 cm LA Systolic Diameter LX 3.6 cm 3.0 - 4.0 / 2.7 - 3.8 cm M-MODE AV Cusp Separation MM 1.5 cm DOPPLER AV Peak Velocity 95.1 cm/s AV Peak Gradient 3.6 mmHg AV Mean Gradient 2.0 mmHg AV Velocity Time Integral 15.1 cm LVOT Peak Velocity 86.5 cm/s LVOT Peak Gradient 3.0 mmHg LVOT Velocity Time Integral 14.8 cm AV Area Cont Eq vti 4.1 cm AV Area Cont Eq pk 3.8 cm Mitral E Point Velocity 52.8 cm/s Mitral A Point Velocity 55.3 cm/s Mitral E to A Ratio 1.0 LV E' Lateral Velocity 6.0 cm/s Mitral E to LV E' Lateral Ratio 8.7 LV E' Septal Velocity 5.3 cm/s Mitral E to LV E' Septal Ratio 10.0 TR Peak Velocity 221.0 cm/s TR Peak Gradient 19.5 mmHg PV Peak Velocity 68.4 cm/s PV Peak Gradient 1.9 mmHg FINDINGS LEFT VENTRICLE Normal left ventricular size. The left ventricular systolic function is severely reduced with an estimated ejection fraction in th e range of 25-30%. Large apical aneurysm involving the distal half od the anterior wall and septum. The left ventricular systolic function is severely reduced with an estimated ejection fraction less than 20%. RIGHT VENTRICLE Normal right ventricular size and systolic function. LEFT ATRIUM The left atrial size is normal. RIGHT ATRIUM The right atrial size is normal. ATRIAL SEPTUM The interatrial septum not well visualized. AORTA The aortic root and proximal ascending aorta are not well visualized. MITRAL VALVE Structurally normal mitral valve. Trace mitral valve regurgitation. AORTIC VALVE No aortic valve stenosis or regurgitation. TRICUSPID VALVE There is trace tricuspid valve regurgitation. The estimated pulmonary arterial pressure is 30 mmHg. PULMONARY VALVE The pulmonary valve is not well visualized. VESSELS The inferior vena cava was not well visualized. PERICARDIUM No pericardial effusion. Eric Wooten MD (Electronically Signed) Final Date:24 November 2017 16:48
[2017-11-24] MEDS: ATORVASTATIN 20 MG TAB PO SCH (20:06)
[2017-11-24] MEDS: DEXMEDETOMIDINE INJ 1,000 MCG in SODIUM CHLOR 0.9% 250 ML INJ 240 ML IV PRN (22:41)
[2017-11-24] MEDS: ALPRAZolam 1 MG TAB PO PRN (22:56)
[2017-11-25] VITALS (8 sets, daily range): BP systolic 100–142; BP diastolic 70–92; PULSE 59–97; RESP 14–20; TEMP 97.7–98.2; O2SAT 91–97
[2017-11-25] MEDS: HEPARIN SODIUM - IV 10,000 UNITS/10 ML VIAL IV PUSH PRN ×2 (00:16→08:34)
[2017-11-25] MEDS: HEPARIN 25,000 UNITS-D5W 250 ML - PREMIX IV PRN ×2 (00:18→15:42)
[2017-11-25] MEDS: MORPHINE SULFATE 4 MG/ML INJ IV PUSH PRN ×5 (06:53→23:43)
[2017-11-25] MEDS: ONDANSETRON ODT 4 MG TAB PO PRN (07:24)
[2017-11-25] MEDS: SUCRALFATE 1 GM/10 ML CUP PO SCH ×4 (08:11→20:40)
[2017-11-25] MEDS: SODIUM CHLORIDE 0.9% FLUSH 10 ML FLUSH IV FLUSH SCH ×2 (08:11→20:39)
[2017-11-25] MEDS: ASPIRIN 81 MG CHEW TAB PO SCH (08:12)
[2017-11-25] MEDS: PANTOPRAZOLE SODIUM 40 MG VIAL IV PUSH SCH ×2 (08:12→20:38)
[2017-11-25] MEDS: DOCUSATE SODIUM 50 MG/SENNA 8.6 MG TAB PO SCH ×2 (08:13→20:42)
[2017-11-25 08:31] LABS: AUTOMATED NEUTROPHIL # 6.8 TH/MM3 (1.8-7.7); BASOPHIL % 0.3 % (0.0-2.0); EOSINOPHIL # 0.1 TH/MM3 (0-0.4); EOSINOPHIL % 0.6 % (0.0-4.0); HEMATOCRIT 44.1 % (39.0-51.0); HEMOGLOBIN 15.2 GM/DL (13.0-17.0); LYMPH % 20.9 % (9.0-44.0); LYMPHOCYTE # 2.1 TH/MM3 (1.0-4.8); MEAN CORPUSCULAR HEMOGLOBIN 30.4 PG (27.0-34.0); MEAN CORPUSCULAR HGB CONC 34.5 % (32.0-36.0); MONO % 10.7 % (0.0-8.0); MONOCYTE # 1.1 TH/MM3 (0-0.9); NEUT % 67.5 % (16.0-70.0); PLATELET COUNT 158 TH/MM3 (150-450); RED BLOOD COUNT 5.01 MIL/MM3 (4.50-5.90); RED CELL DISTRIBUTION WIDTH 13.5 % (11.6-17.2)
[2017-11-25 08:52] LABS: ALBUMIN 2.8 GM/DL (3.4-5.0); AST (GOT) 34 U/L (15-37); BICARBONATE 23.9 MEQ/L (21.0-32.0); BLOOD UREA NITROGEN 15 MG/DL (7-18); CALCIUM 8.5 MG/DL (8.5-10.1); CHLORIDE 105 MEQ/L (98-107); CREATININE 0.73 MG/DL (0.60-1.30); GLOMERULAR FILTRATION RATE 114 ML/MIN (>89); GLUCOSE,RANDOM 100 MG/DL (74-106); MAGNESIUM 2.3 MG/DL (1.5-2.5); SODIUM (NA) 138 MEQ/L (136-145)
[2017-11-25 08:56] LABS: ALKALINE PHOSPHATASE 66 U/L (45-117); ALT (GPT) 36 U/L (12-78); PHOSPHORUS 3.1 MG/DL (2.5-4.9); TOTAL BILIRUBIN ADULT 0.5 MG/DL (0.2-1.0); TOTAL PROTEIN 6.7 GM/DL (6.4-8.2)
--- NOTE | 2017-11-25 09:23 | PD.CAR.PN ---
CVT Progress Note Subjective/Hospital Course: 52-year-old obese gentleman who has been having abdominal pain for the past 2 months and now presents with intermittent chest pain for the past 2 weeks. The patient was seen at [facility] emergency room due to further exacerbation of his chest pain and abdominal pain and was transferred here urgently for further management. Initial troponins were negative, but with concern for an non-ST- segment myocardial infarction, he was taken to the laborer cheesemaking emergently last night and underwent a coronary angiogram, which revealed a critical left main with associated right coronary artery disease in the setting of severe cardiomyopathy, estimated ejection fraction about 20-25% with a left ventricular aneurysm, which is heavily calcified. Additionally, the LAD was 100% occluded with no distal filling. During the procedure because of chest pain, an intraaortic balloon pump was placed and he was transferred to CV ICU. We were consulted for for surgical opinion regarding his underlying coronary anatomy. 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 Will evaluate transfer to [facility] for high risk supported PCI vs high risk surgery vs transplant candidacy. 11/24 Echo pending IABP 1:1 on high flow 02 pain free at this time 11/25 remains on high flow 02 no chest pain last night, chronic low back pain IABP 1:1 on heparin gtt, to accepted by Dr Lobito Wallace at [facility], awaiting transport Objective: GENERAL: on high flow 02 SKIN: Warm and dry. HEAD: Normocephalic. EYES: No scleral icterus. No injection or drainage. NECK: Supple, trachea midline. No JVD or lymphadenopathy. CARDIOVASCULAR: Regular rate and rhythm without murmurs, gallops, or rubs. IABP right groin 1:1 goo distal pulses RESPIRATORY: Breath sounds equal bilaterally. No accessory muscle use. GASTROINTESTINAL: Abdomen soft, non-tender, nondistended. MUSCULOSKELETAL: No cyanosis, or edema. BACK: Nontender without obvious deformity. No CVA tenderness. Vital Signs Date Time Temp Pulse Resp B/P (MAP) Pulse Ox O2 Delivery O2 Flow Rate FiO2 11/25/17 09:00 87/60 (85) 11/25/17 08:00 86/59 (83) 11/25/17 07:00 97.9 62 20 100/74 (83) 92 11/25/17 07:00 78/59 (77) 11/25/17 07:00 92 Nasal Cannula 20.00 55 11/25/17 07:00 80 11/25/17 06:00 81/54 (73) 11/25/17 05:00 81/54 (84) 11/25/17 04:00 90/59 (88) 11/25/17 03:00 Partial Non-Rebreather 20.00 55 Nasal Cannula Humidified 11/25/17 03:00 102/65 (95) 11/25/17 03:00 60 11/25/17 03:00 98.2 59 14 131/92 (105) 91 11/25/17 02:00 95/63 (94) 11/25/17 01:00 95/64 (99) 11/25/17 00:00 91/61 (90) 11/24/17 23:32 18 11/24/17 23:00 98.2 64 16 122/82 (95) 94 11/24/17 23:00 64 11/24/17 23:00 Partial Non-Rebreather 20.00 55 Nasal Cannula Humidified 11/24/17 23:00 88/62 (85) 11/24/17 22:00 74/59 (86) 11/24/17 21:00 95/63 (92) 11/24/17 21:00 97 High Flow Nasal Cannula 20.00 55 11/24/17 20:00 96/61 (91) 11/24/17 19:00 98.3 66 18 106/72 (83) 99 11/24/17 19:00 Partial Non-Rebreather 20.00 55 Nasal Cannula Humidified 11/24/17 19:00 72 11/24/17 19:00 100/63 (92) 11/24/17 18:00 105/67 (97) 11/24/17 17:00 103/67 (98) 11/24/17 16:00 97/62 (91) 11/24/17 15:45 Partial Non-Rebreather 20.00 55 11/24/17 15:00 58 11/24/17 15:00 87/58 (83) 11/24/17 15:00 97.6 60 20 113/77 (89) 95 11/24/17 14:00 97/66 (95) 11/24/17 13:00 88/59 (87) 11/24/17 12:00 94/65 (94) 11/24/17 11:00 70 11/24/17 11:00 Partial Non-Rebreather 20.00 55 11/24/17 11:00 91/67 (92) 11/24/17 11:00 97.8 62 20 116/80 (92) 96 11/24/17 10:00 84/56 (85) Labs: Laboratory Tests Test 11/24/17 22:50 11/25/17 06:08 11/25/17 07:50 Activated Partial Thromboplast Time 36.5 SEC (24.3-30.1) 39.9 SEC (24.3-30.1) White Blood Count 10.0 TH/MM3 (4.0-11.0) Red Blood Count 5.01 MIL/MM3 (4.50-5.90) Hemoglobin 15.2 GM/DL (13.0-17.0) Hematocrit 44.1 % (39.0-51.0) Mean Corpuscular Volume 88.0 FL (80.0-100.0) Mean Corpuscular Hemoglobin 30.4 PG (27.0-34.0) Mean Corpuscular Hemoglobin Concent 34.5 % (32.0-36.0) Red Cell Distribution Width 13.5 % (11.6-17.2) Platelet Count 158 TH/MM3 (150-450) Mean Platelet Volume 9.0 FL (7.0-11.0) Neutrophils (%) (Auto) 67.5 % (16.0-70.0) Lymphocytes (%) (Auto) 20.9 % (9.0-44.0) Monocytes (%) (Auto) 10.7 % (0.0-8.0) Eosinophils (%) (Auto) 0.6 % (0.0-4.0) Basophils (%) (Auto) 0.3 % (0.0-2.0) Neutrophils # (Auto) 6.8 TH/MM3 (1.8-7.7) Lymphocytes # (Auto) 2.1 TH/MM3 (1.0-4.8) Monocytes # (Auto) 1.1 TH/MM3 (0-0.9) Eosinophils # (Auto) 0.1 TH/MM3 (0-0.4) Basophils # (Auto) 0.0 TH/MM3 (0-0.2) CBC Comment DIFF FINAL Differential Comment Blood Urea Nitrogen 15 MG/DL (7-18) Creatinine 0.73 MG/DL (0.60-1.30) Random Glucose 100 MG/DL (74-106) Total Protein 6.7 GM/DL (6.4-8.2) Albumin 2.8 GM/DL (3.4-5.0) Calcium Level 8.5 MG/DL (8.5-10.1) Phosphorus Level 3.1 MG/DL (2.5-4.9) Magnesium Level 2.3 MG/DL (1.5-2.5) Alkaline Phosphatase 66 U/L (45-117) Aspartate Amino Transf (AST/SGOT) 34 U/L (15-37) Alanine Aminotransferase (ALT/SGPT) 36 U/L (12-78) Total Bilirubin 0.5 MG/DL (0.2-1.0) Sodium Level 138 MEQ/L (136-145) Potassium Level 4.2 MEQ/L (3.5-5.1) Chloride Level 105 MEQ/L (98-107) Carbon Dioxide Level 23.9 MEQ/L (21.0-32.0) Anion Gap 9 MEQ/L (5-15) Estimat Glomerular Filtration Rate 114 ML/MIN (>89) Result Diagram: 11/25/17 0750 11/25/17 0750 (1) NSTEMI (non-ST elevated myocardial infarction) Plan: ASA, statin , Heparin gtt no BB for now with decompensated CHF+ echo EF <20% transfer to [facility] in [place] / accepting MD Dr Lobito Wallace (2) Tobacco abuse Plan: smoking cessation (3) CHF (congestive heart failure) (4) Elevated LFTs Plan: improving, neg hep panel (5) Cardiomyopathy (6) Abdominal pain Plan: followed by GI/ GERD Problem Qualifiers (1) CHF (congestive heart failure): (2) Abdominal pain: Qualified Codes: R10.12 - Left upper quadrant pain Amarilis Galindo Nov 25, 2017 09:22
--- NOTE | 2017-11-25 10:06 | HHI.CCPN ---
Subjective Remarks/Hospital Course 52-year-old male with past medical history of hypertension and tobacco use disorder, presents with severe abdominal pain for the past 2 days. He has been having abdominal pain which started about 2 months ago. 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 He is concerned about having a stress ulcer. He describes the pain is in his stomach as burning sensation, goes up his chest, /10, feels like he is being "hit w a sludge hammer" in both chest and stomach. Admits to 20 lbs weight loss, dysphasia with solids only, nausea but no vomiting. Hasn't seen a GI physician. Pt states his pain is so bad that he cannot walk from the room to the bathroom, he states that he feels the reflux up his throat and has a very nasty taste in his mouth. He cannot lay flat because the pain gets worst. The initial troponins were elevated and he was emergently seen by house wirer helper. He did not meet criteria for STEMI, but due to his ongoing chest pain, he was urgently transferred to [facility] for urgent left heart catheterization. He has revealed critical left main and ostial proximal right coronary artery disease, critically elevated left ventricular end diastolic pressure, ejection fraction of 25-30%, and successful placement of an intraaortic balloon pump with immediate resolution of the patient's chest pain and dyspnea. The cardiothoracic surgery consultation is pending. Subjective: 11/23 Denies CP or SOB now. Hasn't voided, urinary retention 500, placing [place]. On Precedex due to anxiety/agitated delirium/uncooperative with bedrest while IABP in place. CVS consult pending. C/O back pain, saying hospital bed bothers his back 11/24 Patient denies any CP/SOB, on IABP 1: 1. On Heparin and Precedex drips. 11/25 No events overnight. On Heparin, Precedex drip. For possible transfer to [facility] today. IABP 1:1 On high flow oxygen 20L with 55% FIO2. Objective Vital Signs Date Time Temp Pulse Resp B/P (MAP) Pulse Ox O2 Delivery O2 Flow Rate FiO2 11/25/17 09:00 87/60 (85) 11/25/17 07:00 97.9 62 20 92 11/25/17 07:00 Nasal Cannula 20.00 55 Intake and Output 11/25/17 11/25/17 11/26/17 08:00 16:00 00:00 Intake Total 991 ml Output Total 1060 ml Balance -69 ml Result Diagram: 11/25/17 0750 11/25/17 0750 Other Results Laboratory Tests Test 11/24/17 16:02 11/24/17 22:50 11/25/17 06:08 11/25/17 07:50 Activated Partial Thromboplast Time 35.8 SEC 36.5 SEC 39.9 SEC White Blood Count 10.0 TH/MM3 Red Blood Count 5.01 MIL/MM3 Hemoglobin 15.2 GM/DL Hematocrit 44.1 % Mean Corpuscular Volume 88.0 FL Mean Corpuscular Hemoglobin 30.4 PG Mean Corpuscular Hemoglobin Concent 34.5 % Red Cell Distribution Width 13.5 % Platelet Count 158 TH/MM3 Mean Platelet Volume 9.0 FL Neutrophils (%) (Auto) 67.5 % Lymphocytes (%) (Auto) 20.9 % Monocytes (%) (Auto) 10.7 % Eosinophils (%) (Auto) 0.6 % Basophils (%) (Auto) 0.3 % Neutrophils # (Auto) 6.8 TH/MM3 Lymphocytes # (Auto) 2.1 TH/MM3 Monocytes # (Auto) 1.1 TH/MM3 Eosinophils # (Auto) 0.1 TH/MM3 Basophils # (Auto) 0.0 TH/MM3 CBC Comment DIFF FINAL Differential Comment Blood Urea Nitrogen 15 MG/DL Creatinine 0.73 MG/DL Random Glucose 100 MG/DL Total Protein 6.7 GM/DL Albumin 2.8 GM/DL Calcium Level 8.5 MG/DL Phosphorus Level 3.1 MG/DL Magnesium Level 2.3 MG/DL Alkaline Phosphatase 66 U/L Aspartate Amino Transf (AST/SGOT) 34 U/L Alanine Aminotransferase (ALT/SGPT) 36 U/L Total Bilirubin 0.5 MG/DL Sodium Level 138 MEQ/L Potassium Level 4.2 MEQ/L Chloride Level 105 MEQ/L Carbon Dioxide Level 23.9 MEQ/L Anion Gap 9 MEQ/L Estimat Glomerular Filtration Rate 114 ML/MIN Imaging Last Impressions Chest X-Ray 11/23/17 0000 Signed Impressions: CONCLUSION: Mild basilar atelectasis. Carotid Artery Ultrasound 11/23/17 0000 Signed Impressions: There is no evidence for hemodynamically significant stenosis of either carotid artery. There is antegrade flow in the bilateral vertebral arteries. Mild athe rosclerotic plaquing seen bilaterally. CONCLUSION: 1. Right Internal Carotid Artery: No significant stenosis or atherosclerotic p laque is visualized. 2. Left Internal Carotid Artery: No significant stenosis or atherosclerotic pl aque is visualized. Abdomen/Pelvis CT 11/22/17 1140 Signed Impressions: CONCLUSION: 1. Hepatomegaly and hepatic steatosis. 2. Nonobstructing right renal calculi, renal scarring and cysts. 3. Atherosclerosis. 4. Long-term stable tiny right lung nodules unchanged to 2013 characteristic o f benign process. 5. Calcified left ventricular apical infarct. Objective Remarks GENERAL: Well-nourished, well-developed patient, lying in bed in no acute resp distress SKIN: Warm and dry, adequately perfused HEAD: Normocephalic. EYES: No scleral icterus. No injection or drainage. NECK: Supple, trachea midline. No JVD or lymphadenopathy. CARDIOVASCULAR: Regular rate and rhythm , IABP audible, no murmur, sinus on monitor. RESPIRATORY: Breath sounds equal bilaterally. No accessory muscle use. GASTROINTESTINAL: Abdomen soft, non-tender, nondistended. Bowel sounds present. MUSCULOSKELETAL: No cyanosis, or edema. IABP R groin with blood staining to gauze but no ecchymosis or hematoma. NEURO EXAM: Awake, alert, moves all extremities without focal deficit. A/P Problem List: (1) NSTEMI (non-ST elevated myocardial infarction) ICD Code: I21.4 - Non-ST elevation (NSTEMI) myocardial infarction Status: Acute (2) Elevated LFTs ICD Code: R94.5 - Abnormal results of liver function studies Status: Chronic (3) Cardiomyopathy ICD Code: I42.9 - Cardiomyopathy, unspecified Status: Acute Permanent Comment: acute on chronic Last Edited By: Josette Cano on Nov 23, 2017 20:39 (4) Tobacco abuse ICD Code: Z72.0 - Tobacco use Status: Acute (5) CHF (congestive heart failure) ICD Code: I50.9 - Heart failure, unspecified Status: Acute (6) Cardiogenic shock ICD Code: R57.0 - Cardiogenic shock Status: Acute (7) Respiratory insufficiency ICD Code: R06.89 - Other abnormalities of breathing Status: Acute Assessment and Plan Neuro: Awake and alert. On Peridex drip for agitation/Anxiety- monitor neuro status. Ativan 1mg Q6 PRN for anxiety Pulm: ? COPD Hx tobacco use Wean down oxygen as vel keep sats >92% Bronchodilators, add Symbicort. Short course IV steroids CXR: Mild bibasilar atelectasis CV: NSTEMI/Cardiogenic shock CAD Dyslipidemia -Status post emergent cardiac catheterization -Multivessel disease/cardiomyopathy -CTS: Dr. Franco- For possible transfer to [facility] today under Dr. Wallace service. -Aspirin, atorvastatin -Continue Heparin drip- Monitor PTT per protocol. -IABP :1:1 Urinary retention Monitor renal function, electrolytes replacement per protocol. GI: Elevated LFT's...trending down. Hepatitis serology negative. GI signed off- unstable for procedures per GI On PO diet, on Protonix 40mg Q12 ID: Monitor for signs of infections ( Fever, WBC) Panculture if spikes a fever Heme: Monitor CBC, coags- On Heparin drip Endo: SI if needed for glycemic control Prophylaxis= GI prophylaxis- on Protonix 40mg Q12 DVT prophylaxis- on heparin drip Level 3 Problem Qualifiers (1) CHF (congestive heart failure): Suzie Lazar MD Nov 25, 2017 10:06
[2017-11-25] MEDS: BUDESONIDE-FORMOTEROL 160/4.5 MCG INHALER INH SCH ×2 (11:15→20:38)
[2017-11-25] MEDS ORDERED: RESP: ALBUTEROL 2.5 MG/IPRATROPIUM 0.5 MG NEB (PRN) NEB (11:15)
--- NOTE | 2017-11-25 12:33 | PD.CARD.PN ---
Subjective Subjective Remarks alert in nad Objective Medications Current Medications Medications (Trade) Dose Ordered Sig/Nancy Route Start Time Stop Time Status Last Admin (Reglan Inj) 5 mg Q6H PRN IV PUSH 11/22/17 13:30 (Narcan Inj) 0.4 mg UNSCH PRN IV PUSH 11/22/17 13:30 (Valorie-Colace) 1 tab BID PO 11/22/17 21:00 11/23/17 20:08 (Milk Of Magnesia Liq) 30 ml Q12H PRN PO 11/22/17 13:30 (Senokot) 17.2 mg Q12H PRN PO 11/22/17 13:30 (Dulcolax Supp) 10 mg DAILY PRN RECTAL 11/22/17 13:30 (Lactulose Liq) 30 ml DAILY PRN PO 11/22/17 13:30 (Carafate Liq) 1 gm ACHS PO 11/22/17 21:00 11/25/17 08:11 (Coreg) 6.25 mg Q12HR PO 11/22/17 21:00 Future Hold (Vasotec Inj) 1.25 mg Q6H PRN IV PUSH 11/22/17 16:30 (Lipitor) 20 mg HS PO 11/22/17 21:00 11/24/17 20:06 (Nitrostat Sl) 0.4 mg Q5M PRN SL 11/22/17 17:45 11/22/17 16:36 Nitroglycerin/ Dextrose 250 ml @ 1.5 mls/hr TITRATE PRN IV 11/22/17 17:45 11/22/17 18:01 (NS Flush) 2 ml UNSCH PRN IV FLUSH 11/22/17 21:00 (NS Flush) 2 ml BID IV FLUSH 11/22/17 21:00 11/25/17 08:11 (Aspirin Chew) 162 mg DAILY PO 11/23/17 09:00 11/25/17 08:12 Heparin Sodium/ Dextrose 250 ml @ 10 mls/hr TITRATE PRN IV 11/23/17 06:30 11/25/17 00:18 (Heparin Inj) 5,000 units UNSCH PRN IV PUSH 11/23/17 06:30 (Heparin Inj) 2,500 units UNSCH PRN IV PUSH 11/23/17 06:30 11/25/17 08:34 (Zofran Odt) 4 mg Q6H PRN PO 11/23/17 11:15 11/25/17 07:24 (Protonix Inj) 40 mg Q12HR IV PUSH 11/23/17 12:15 11/25/17 08:12 (Morphine Inj) 4 mg Q3H PRN IV PUSH 11/23/17 16:30 11/25/17 10:06 (Roxicodone) 5 mg Q4H PRN PO 11/23/17 15:45 11/25/17 08:36 Dexmedetomidine HCl 1000 mcg/ Sodium Chloride 250 ml @ 5.44 mls/hr TITRATE PRN IV 11/24/17 22:00 11/24/17 22:41 (Xanax) 1 mg Q6H PRN PO 11/24/17 23:00 11/24/17 22:56 (Duoneb Neb) 1 ampule Q4HR NEB NEB 11/25/17 12:00 (Duoneb Neb) 1 ampule Q2HR NEB PRN NEB 11/25/17 11:15 (Symbicort 160-4.5 Mcg Inh) 2 puff Q12HR INH 11/25/17 11:15 (SoluMEDROL INJ) 40 mg Q6HR IV PUSH 11/25/17 12:00 Vital Signs / I&O Vital Signs Date Time Temp Pulse Resp B/P (MAP) Pulse Ox O2 Delivery O2 Flow Rate FiO2 11/25/17 11:21 Nasal Cannula 4.00 11/25/17 11:00 84/56 (87) 11/25/17 11:00 66 11/25/17 11:00 97.8 97 18 121/86 (98) 96 11/25/17 10:55 Nasal Cannula 4.00 11/25/17 10:00 86/60 (84) 11/25/17 09:00 87/60 (85) 11/25/17 08:16 92 High Flow Nasal Cannula 20.00 55 11/25/17 08:00 86/59 (83) 11/25/17 07:00 97.9 62 20 100/74 (83) 92 11/25/17 07:00 78/59 (77) 11/25/17 07:00 92 Nasal Cannula 20.00 55 11/25/17 07:00 80 11/25/17 06:00 81/54 (73) 11/25/17 05:00 81/54 (84) 11/25/17 04:00 90/59 (88) 11/25/17 03:00 Partial Non-Rebreather 20.00 55 Nasal Cannula Humidified 11/25/17 03:00 102/65 (95) 11/25/17 03:00 60 11/25/17 03:00 98.2 59 14 131/92 (105) 91 11/25/17 02:00 95/63 (94) 11/25/17 01:00 95/64 (99) 11/25/17 00:00 91/61 (90) 11/24/17 23:32 18 11/24/17 23:00 98.2 64 16 122/82 (95) 94 11/24/17 23:00 64 11/24/17 23:00 Partial Non-Rebreather 20.00 55 Nasal Cannula Humidified 11/24/17 23:00 88/62 (85) 11/24/17 22:00 74/59 (86) 11/24/17 21:00 95/63 (92) 11/24/17 21:00 97 High Flow Nasal Cannula 20.00 55 11/24/17 20:00 96/61 (91) 11/24/17 19:00 98.3 66 18 106/72 (83) 99 11/24/17 19:00 Partial Non-Rebreather 20.00 55 Nasal Cannula Humidified 11/24/17 19:00 72 11/24/17 19:00 100/63 (92) 11/24/17 18:00 105/67 (97) 11/24/17 17:00 103/67 (98) 11/24/17 16:00 97/62 (91) 11/24/17 15:45 Partial Non-Rebreather 20.00 55 11/24/17 15:00 58 11/24/17 15:00 87/58 (83) 11/24/17 15:00 97.6 60 20 113/77 (89) 95 11/24/17 14:00 97/66 (95) 11/24/17 13:00 88/59 (87) I/O 11/24/17 11/24/17 11/24/17 11/25/17 11/25/1718 07:00 15:00 23:00 07:00 15:00 23:00 Intake Total 869 ml 484 ml 991 ml Output Total 820 ml 1425 ml 1060 ml Balance 49 ml -941 ml -69 ml Intake Oral 480 ml 100 ml 480 ml IV Total 389 ml 384 ml 511 ml Output Urine Total 820 ml 1425 ml 1060 ml # Voids 1 # Bowel Movements 0 0 Physical Exam GENERAL: SKIN: Warm and dry. HEAD: Normocephalic. EYES: No scleral icterus. No injection or drainage. NECK: Supple, trachea midline. No JVD or lymphadenopathy. CARDIOVASCULAR: Regular rate and rhythm without murmurs, gallops, or rubs. RESPIRATORY: Breath sounds equal bilaterally. No accessory muscle use. GASTROINTESTINAL: Abdomen soft, non-tender, nondistended. MUSCULOSKELETAL: No cyanosis, or edema. BACK: Nontender without obvious deformity. No CVA tenderness. Laboratory Laboratory Tests Test 11/24/17 16:02 11/24/17 22:50 11/25/17 06:08 11/25/17 07:50 Activated Partial Thromboplast Time 35.8 SEC 36.5 SEC 39.9 SEC White Blood Count 10.0 TH/MM3 Red Blood Count 5.01 MIL/MM3 Hemoglobin 15.2 GM/DL Hematocrit 44.1 % Mean Corpuscular Volume 88.0 FL Mean Corpuscular Hemoglobin 30.4 PG Mean Corpuscular Hemoglobin Concent 34.5 % Red Cell Distribution Width 13.5 % Platelet Count 158 TH/MM3 Mean Platelet Volume 9.0 FL Neutrophils (%) (Auto) 67.5 % Lymphocytes (%) (Auto) 20.9 % Monocytes (%) (Auto) 10.7 % Eosinophils (%) (Auto) 0.6 % Basophils (%) (Auto) 0.3 % Neutrophils # (Auto) 6.8 TH/MM3 Lymphocytes # (Auto) 2.1 TH/MM3 Monocytes # (Auto) 1.1 TH/MM3 Eosinophils # (Auto) 0.1 TH/MM3 Basophils # (Auto) 0.0 TH/MM3 CBC Comment DIFF FINAL Differential Comment Blood Urea Nitrogen 15 MG/DL Creatinine 0.73 MG/DL Random Glucose 100 MG/DL Total Protein 6.7 GM/DL Albumin 2.8 GM/DL Calcium Level 8.5 MG/DL Phosphorus Level 3.1 MG/DL Magnesium Level 2.3 MG/DL Alkaline Phosphatase 66 U/L Aspartate Amino Transf (AST/SGOT) 34 U/L Alanine Aminotransferase (ALT/SGPT) 36 U/L Total Bilirubin 0.5 MG/DL Sodium Level 138 MEQ/L Potassium Level 4.2 MEQ/L Chloride Level 105 MEQ/L Carbon Dioxide Level 23.9 MEQ/L Anion Gap 9 MEQ/L Estimat Glomerular Filtration Rate 114 ML/MIN Assessment and Plan Problem List: (1) NSTEMI (non-ST elevated myocardial infarction) ICD Codes: I21.4 - Non-ST elevation (NSTEMI) myocardial infarction Status: Acute (2) Tobacco abuse ICD Codes: Z72.0 - Tobacco use Status: Acute (3) CHF (congestive heart failure) ICD Codes: I50.9 - Heart failure, unspecified Status: Acute (4) Elevated LFTs ICD Codes: R94.5 - Abnormal results of liver function studies Status: Chronic (5) Cardiomyopathy ICD Codes: I42.9 - Cardiomyopathy, unspecified Status: Acute Permanent Comment: acute on chronic Last Edited By: Josette Cano on Nov 23, 2017 20:39 (6) Abdominal pain ICD Codes: R10.9 - Unspecified abdominal pain Status: Acute Assessment and Plan 1.) Severe left main and 3 vessel cad/cardiomyopathy - continue aspirin, iv heparin, iabp; statin held due to elevated lfts, beta sim held due to decompensated chf; d/w Dr Franco, high risk for cabg, accepted by Dr Lobito Wallace @ , for transfer for possible options, including high risk pci with lvad, high risk cabg, lvad to transplant, echo ef =20%, carotid us without significant disease, patient strongly advised to stop smoking Problem Qualifiers (1) CHF (congestive heart failure): (2) Abdominal pain: Qualified Codes: R10.12 - Left upper quadrant pain Jack Eduardo MD Nov 25, 2017 12:33
[2017-11-25] MEDS: methylPREDNISolone SOD SUCC 40 MG/1 ML VIAL IV PUSH SCH ×3 (12:37→23:13)
[2017-11-25] MEDS: ALPRAZolam 1 MG TAB PO PRN ×2 (12:41→23:13)
[2017-11-25] MEDS: DEXMEDETOMIDINE INJ 1,000 MCG in SODIUM CHLOR 0.9% 250 ML INJ 240 ML IV PRN (13:29)
[2017-11-25] MEDS: RESP: ALBUTEROL 2.5 MG/IPRATROPIUM 0.5 MG NEB (SCH) NEB ×2 (16:22→21:36)
[2017-11-25] MEDS: ATORVASTATIN 20 MG TAB PO SCH (20:39)
[2017-11-26] VITALS (8 sets, daily range): BP systolic 95–134; BP diastolic 60–74; PULSE 65–95; RESP 17–18; TEMP 97.6–98.2; O2SAT 94–98
[2017-11-26] MEDS: RESP: ALBUTEROL 2.5 MG/IPRATROPIUM 0.5 MG NEB (SCH) NEB ×6 (00:38→22:30)
[2017-11-26] MEDS: DEXMEDETOMIDINE INJ 1,000 MCG in SODIUM CHLOR 0.9% 250 ML INJ 240 ML IV PRN ×3 (03:14→17:15)
[2017-11-26] MEDS: HEPARIN 25,000 UNITS-D5W 250 ML - PREMIX IV PRN ×2 (03:14→17:17)
[2017-11-26] MEDS: methylPREDNISolone SOD SUCC 40 MG/1 ML VIAL IV PUSH SCH ×2 (05:35→12:07)
[2017-11-26] MEDS: ALPRAZolam 1 MG TAB PO PRN ×2 (05:35→18:36)
[2017-11-26 06:16] LABS: AUTOMATED NEUTROPHIL # 6.7 TH/MM3 (1.8-7.7); BASOPHIL % 0.1 % (0.0-2.0); HEMATOCRIT 42.8 % (39.0-51.0); HEMOGLOBIN 14.7 GM/DL (13.0-17.0); LYMPH % 11.3 % (9.0-44.0); LYMPHOCYTE # 0.9 TH/MM3 (1.0-4.8); MEAN CELL VOLUME 87.8 FL (80.0-100.0); MEAN CORPUSCULAR HEMOGLOBIN 30.2 PG (27.0-34.0); MEAN CORPUSCULAR HGB CONC 34.4 % (32.0-36.0); MONO % 2.7 % (0.0-8.0); MONOCYTE # 0.2 TH/MM3 (0-0.9); NEUT % 85.9 % (16.0-70.0); PLATELET COUNT 170 TH/MM3 (150-450); RED BLOOD COUNT 4.87 MIL/MM3 (4.50-5.90); RED CELL DISTRIBUTION WIDTH 13.2 % (11.6-17.2); WHITE BLOOD COUNT 7.8 TH/MM3 (4.0-11.0)
[2017-11-26 06:29] LABS: BICARBONATE 21.1 MEQ/L (21.0-32.0); CALCIUM 8.3 MG/DL (8.5-10.1); CREATININE 0.86 MG/DL (0.60-1.30)
[2017-11-26] MEDS: DOCUSATE SODIUM 50 MG/SENNA 8.6 MG TAB PO SCH (07:59)
[2017-11-26] MEDS: PANTOPRAZOLE SODIUM 40 MG VIAL IV PUSH SCH (07:59)
[2017-11-26] MEDS: SUCRALFATE 1 GM/10 ML CUP PO SCH ×3 (07:59→17:37)
[2017-11-26] MEDS: BUDESONIDE-FORMOTEROL 160/4.5 MCG INHALER INH SCH ×2 (08:00→21:00)
[2017-11-26] MEDS: SODIUM CHLORIDE 0.9% FLUSH 10 ML FLUSH IV FLUSH SCH ×2 (08:00→21:00)
[2017-11-26] MEDS: ASPIRIN 81 MG CHEW TAB PO SCH (08:00)
[2017-11-26] MEDS: ONDANSETRON ODT 4 MG TAB PO PRN (08:25)
[2017-11-26] MEDS: NITROGLYCERIN 0.4 MG SL 25 TABS/BTL SL PRN (08:26)
[2017-11-26] MEDS: MORPHINE SULFATE 4 MG/ML INJ IV PUSH PRN ×2 (08:36→22:55)
--- NOTE | 2017-11-26 08:51 | HHI.CCPN ---
Subjective Remarks/Hospital Course 52-year-old male with past medical history of hypertension and tobacco use disorder, presents with severe abdominal pain for the past 2 days. He has been having abdominal pain which started about 2 months ago. 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 He is concerned about having a stress ulcer. He describes the pain is in his stomach as burning sensation, goes up his chest, 02/23, feels like he is being "hit w a sludge hammer" in both chest and stomach. Admits to 20 lbs weight loss, dysphasia with solids only, nausea but no vomiting. Hasn't seen a GI physician. Pt states his pain is so bad that he cannot walk from the room to the bathroom, he states that he feels the reflux up his throat and has a very nasty taste in his mouth. He cannot lay flat because the pain gets worst. The initial troponins were elevated and he was emergently seen by accountant machine processing. He did not meet criteria for STEMI, but due to his ongoing chest pain, he was urgently transferred to [facility] for urgent left heart catheterization. He has revealed critical left main and ostial proximal right coronary artery disease, critically elevated left ventricular end diastolic pressure, ejection fraction of 25-30%, and successful placement of an intraaortic balloon pump with immediate resolution of the patient's chest pain and dyspnea. The cardiothoracic surgery consultation is pending. Subjective: 11/23 Denies CP or SOB now. Hasn't voided, urinary retention 500, placing I[place]on. On Precedex due to anxiety/agitated delirium/uncooperative with bedrest while IABP in place. CVS consult pending. C/O back pain, saying hospital bed bothers his back 11/24 Patient denies any CP/SOB, on IABP 1: 1. On Heparin and Precedex drips. 11/25 No events overnight. On Heparin, Precedex drip. For possible transfer to [facility] today. IABP 1:1 On high flow oxygen 20L with 55% FIO2. 11/26: back down to 5L NC. IABP remains 1:1. could not transfer to [facility] yesterday or overnight due to weather concerns. remains chest pain free. lactate cleared. trops downtrending. discussed with cardiac surgery, and really needs to be in high-risk heart center with mechanical support availability for salvage VAD vs. transplant work-up given his young age and recent functional status. will attempt to find an available bed at higher level of care today. Objective Vital Signs Date Time Temp Pulse Resp B/P (MAP) Pulse Ox O2 Delivery O2 Flow Rate FiO2 11/26/17 07:00 97 Nasal Cannula 5.00 11/26/17 07:00 104/62 (99) 11/26/17 07:00 97.9 68 18 11/25/17 08:16 55 Intake and Output 11/26/17 11/26/17 11/27/17 08:00 16:00 00:00 Intake Total 1011 ml Output Total 2575 ml Balance -1564 ml Result Diagram: 11/26/17 0602 11/26/17 0602 Imaging Last Impressions Chest X-Ray 11/23/17 0000 Signed Impressions: CONCLUSION: Mild basilar atelectasis. Carotid Artery Ultrasound 11/23/17 0000 Signed Impressions: There is no evidence for hemodynamically significant stenosis of either carotid artery. There is antegrade flow in the bilateral vertebral arteries. Mild athe rosclerotic plaquing seen bilaterally. CONCLUSION: 1. Right Internal Carotid Artery: No significant stenosis or atherosclerotic p laque is visualized. 2. Left Internal Carotid Artery: No significant stenosis or atherosclerotic pl aque is visualized. Abdomen/Pelvis CT 11/22/17 1140 Signed Impressions: CONCLUSION: 1. Hepatomegaly and hepatic steatosis. 2. Nonobstructing right renal calculi, renal scarring and cysts. 3. Atherosclerosis. 4. Long-term stable tiny right lung nodules unchanged to 2013 characteristic o f benign process. 5. Calcified left ventricular apical infarct. Objective Remarks GENERAL: middle-aged male, lying in bed in no acute resp distress, anxious, lying flat due to IABP. SKIN: Warm and dry, adequately perfused HEAD: Normocephalic. EYES: No scleral icterus. No injection or drainage. NECK: Supple, trachea midline. No JVD. CARDIOVASCULAR: Regular rate and rhythm , IABP audible, no murmur, sinus on monitor. RESPIRATORY: Breath sounds equal bilaterally. No accessory muscle use. 5L NC. GASTROINTESTINAL: Abdomen soft, non-tender, nondistended. MUSCULOSKELETAL: No cyanosis, or edema. IABP R groin with blood staining to gauze but no ecchymosis or hematoma. distal pulses Dopplerable. NEURO EXAM: RASS 0 to +1. on precedex intermittently to remain calm with IABP in place. moves all extremities. follows commands. A/P Problem List: (1) NSTEMI (non-ST elevated myocardial infarction) ICD Code: I21.4 - Non-ST elevation (NSTEMI) myocardial infarction Status: Acute (2) Elevated LFTs ICD Code: R94.5 - Abnormal results of liver function studies Status: Chronic (3) Cardiomyopathy ICD Code: I42.9 - Cardiomyopathy, unspecified Status: Acute Permanent Comment: acute on chronic Last Edited By: Josette Cano on Nov 23, 2017 20:39 (4) Tobacco abuse ICD Code: Z72.0 - Tobacco use Status: Acute (5) CHF (congestive heart failure) ICD Code: I50.9 - Heart failure, unspecified Status: Acute (6) Cardiogenic shock ICD Code: R57.0 - Cardiogenic shock Status: Acute (7) Respiratory insufficiency ICD Code: R06.89 - Other abnormalities of breathing Status: Acute Assessment and Plan Assessment: 52yM with newly diagnosed Ischemic Cardiomyopathy, EF 25%, with large LV anteroapical aneurysm, acute NSTEMI with cardiogenic shock s/p IABP mechanical support. Will continue to attempt to transfer to higher level of care , weather permitting. In the interim, keep IABP 1:1 and forced diuresis to optimize LVEDP and coronary perfusion. Highly complex with high risk for decompensation. Neuro: Awake and alert. On Peridex drip for agitation/Anxiety- monitor neuro status. Ativan 1mg Q6 PRN for anxiety Pulm: ? COPD Hx tobacco use Wean down oxygen as vel keep sats >92% Bronchodilators, add Symbicort. Short course IV steroids CXR: Mild bibasilar atelectasis CV: NSTEMI/Cardiogenic shock IABP placement for mechanical support Ischemic Cardiomyopathy, EF 25% LV anteroapical calcified Aneurysm 95% left main stenosis, 90% RCA stenosis, 100% LAD stenosis CAD Dyslipidemia -Status post emergent cardiac catheterization -Multivessel disease/cardiomyopathy -CTS: Dr. Franco- was originally accepted by Dr. Conley at [facility], but due to weather concerns, has not transferred for > 48h. Now no bed availability at [facility]. will attempt to refer to [facility] or [facility] as weather may not be a concern in that area. -Aspirin, atorvastatin -Continue Heparin drip- Monitor PTT per protocol. -IABP :1:1 Urinary retention Monitor renal function, electrolytes replacement per protocol. keep iverson. GI: Elevated LFT's...trending down. Hepatitis serology negative. GI signed off- unstable for procedures per GI On PO diet, on Protonix 40mg Q12 ID: Monitor for signs of infections ( Fever, WBC) Panculture if spikes a fever Heme: Monitor CBC, coags- On Heparin drip Endo: SI if needed for glycemic control Prophylaxis GI prophylaxis- on Protonix 40mg Q12 DVT prophylaxis- on heparin drip Dispo: needs to transfer to higher level of care. will continue to attempt. in the interim, continue CVICU with IABP. Problem Qualifiers (1) CHF (congestive heart failure): Shant Reid MD Nov 26, 2017 08:50
--- NOTE | 2017-11-26 09:43 | PD.CAR.PN ---
CVT Progress Note Subjective/Hospital Course: 52-year-old obese gentleman who has been having abdominal pain for the past 2 months and now presents with intermittent chest pain for the past 2 weeks. The patient was seen at [facility] emergency room due to further exacerbation of his chest pain and abdominal pain and was transferred here urgently for further management. Initial troponins were negative, but with concern for an non-ST- segment myocardial infarction, he was taken to the medical laboratory assistant emergently last night and underwent a coronary angiogram, which revealed a critical left main with associated right coronary artery disease in the setting of severe cardiomyopathy, estimated ejection fraction about 20-25% with a left ventricular aneurysm, which is heavily calcified. Additionally, the LAD was 100% occluded with no distal filling. During the procedure because of chest pain, an intraaortic balloon pump was placed and he was transferred to CV ICU. We were consulted for for surgical opinion regarding his underlying coronary anatomy. 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 Will evaluate transfer to [facility] for high risk supported PCI vs high risk surgery vs transplant candidacy. 11/24 Echo pending IABP 1:1 on high flow 02 pain free at this time 11/25 remains on high flow 02 no chest pain last night, chronic low back pain IABP 1:1 on heparin gtt, to accepted by Dr Lobito Wallace at [facility], awaiting transport 11/26 now on 5 liter nasal cannula had episode of chest pain this am, relieved with one SL NTG no ECG changes waiting on transfer bed / Objective: GENERAL: A&O x 3 , very emotional , at bedside SKIN: Warm and dry. HEAD: Normocephalic. EYES: No scleral icterus. No injection or drainage. NECK: Supple, trachea midline. No JVD or lymphadenopathy. CARDIOVASCULAR: Regular rate and rhythm without murmurs, gallops, or rubs. IABP right groin , 1:1 augmentation RESPIRATORY: Breath sounds equal bilaterally. No accessory muscle use. GASTROINTESTINAL: Abdomen soft, non-tender, nondistended. MUSCULOSKELETAL: No cyanosis, or edema. BACK: Nontender without obvious deformity. No CVA tenderness. Vital Signs Date Time Temp Pulse Resp B/P (MAP) Pulse Ox O2 Delivery O2 Flow Rate FiO2 11/26/17 09:00 94/57 (82) 11/26/17 08:51 94 5.00 11/26/17 08:00 98/60 (60) 11/26/17 08:00 98/ 11/26/17 07:00 97 Nasal Cannula 5.00 11/26/17 07:00 104/62 (99) 11/26/17 07:00 97.9 68 18 134/72 (92) 97 11/26/17 07:00 65 11/26/17 06:00 108/79 (95) 11/26/17 05:00 109/57 (95) 11/26/17 04:00 106/70 (99) 11/26/17 03:52 98 Nasal Cannula 5.00 11/26/17 03:52 71 11/26/17 03:52 98.2 75 18 122/65 (84) 98 111/66 (81) 11/26/17 03:00 111/66 (98) 11/26/17 02:00 113/71 (105) 11/26/17 01:00 113/62 (101) 11/26/17 00:39 86 11/26/17 00:39 95 Nasal Cannula 5.00 11/26/17 00:39 98.0 86 17 109/60 (76) 96 95/61 (72) 11/26/17 00:00 119/69 (104) 11/25/17 23:00 95/61 (86) 11/25/17 22:23 97 Nasal Cannula 4.00 11/25/17 22:00 95/64 (86) 11/25/17 21:00 99/63 (89) 11/25/17 20:00 102/68 (98) 11/25/17 19:41 95 Nasal Cannula 4.00 11/25/17 19:41 97.9 66 17 142/89 (106) 96 108/70 (83) 11/25/17 19:00 108/70 (105) 11/25/17 19:00 66 11/25/17 18:00 101/63 (92) 11/25/17 17:00 96/61 (89) 11/25/17 16:06 100/66 (97) 11/25/17 15:15 94 Nasal Cannula 4.00 11/25/17 15:00 97.7 63 18 121/86 (98) 97 11/25/17 15:00 98/65 (98) 11/25/17 15:00 65 11/25/17 14:00 90/60 (86) 11/25/17 13:00 93/61 (89) 11/25/17 12:00 102/56 (78) 11/25/17 11:21 Nasal Cannula 4.00 11/25/17 11:00 84/56 (87) 11/25/17 11:00 66 11/25/17 11:00 97.8 97 18 121/86 (98) 96 11/25/17 10:55 Nasal Cannula 4.00 11/25/17 10:00 86/60 (84) Labs: Laboratory Tests Test 11/26/17 06:02 White Blood Count 7.8 TH/MM3 (4.0-11.0) Red Blood Count 4.87 MIL/MM3 (4.50-5.90) Hemoglobin 14.7 GM/DL (13.0-17.0) Hematocrit 42.8 % (39.0-51.0) Mean Corpuscular Volume 87.8 FL (80.0-100.0) Mean Corpuscular Hemoglobin 30.2 PG (27.0-34.0) Mean Corpuscular Hemoglobin Concent 34.4 % (32.0-36.0) Red Cell Distribution Width 13.2 % (11.6-17.2) Platelet Count 170 TH/MM3 (150-450) Mean Platelet Volume 8.0 FL (7.0-11.0) Neutrophils (%) (Auto) 85.9 % (16.0-70.0) Lymphocytes (%) (Auto) 11.3 % (9.0-44.0) Monocytes (%) (Auto) 2.7 % (0.0-8.0) Eosinophils (%) (Auto) 0.0 % (0.0-4.0) Basophils (%) (Auto) 0.1 % (0.0-2.0) Neutrophils # (Auto) 6.7 TH/MM3 (1.8-7.7) Lymphocytes # (Auto) 0.9 TH/MM3 (1.0-4.8) Monocytes # (Auto) 0.2 TH/MM3 (0-0.9) Eosinophils # (Auto) 0.0 TH/MM3 (0-0.4) Basophils # (Auto) 0.0 TH/MM3 (0-0.2) CBC Comment DIFF FINAL Differential Comment Activated Partial Thromboplast Time 42.1 SEC (24.3-30.1) Blood Urea Nitrogen 10 MG/DL (7-18) Creatinine 0.86 MG/DL (0.60-1.30) Random Glucose 183 MG/DL (74-106) Calcium Level 8.3 MG/DL (8.5-10.1) Sodium Level 139 MEQ/L (136-145) Potassium Level 3.9 MEQ/L (3.5-5.1) Chloride Level 106 MEQ/L (98-107) Carbon Dioxide Level 21.1 MEQ/L (21.0-32.0) Anion Gap 12 MEQ/L (5-15) Estimat Glomerular Filtration Rate 94 ML/MIN (>89) Result Diagram: 11/26/1760111/26/17601 (1) NSTEMI (non-ST elevated myocardial infarction) Plan: ASA, statin , Heparin gtt no BB for now with decompensated CHF+ echo EF <20% transfer to [facility] in [place] / accepting MD Dr Lobito Wallace (2) Tobacco abuse Plan: smoking cessation (3) CHF (congestive heart failure) (4) Elevated LFTs Plan: improving, neg hep panel (5) Cardiomyopathy (6) Abdominal pain Plan: followed by GI/ GERD / improved / hep panel neg Problem Qualifiers (1) CHF (congestive heart failure): (2) Abdominal pain: Qualified Codes: R10.12 - Left upper quadrant pain Amarilis Galindo Nov 26, 2017 09:43
--- NOTE | 2017-11-26 13:32 | PD.CARD.PN ---
Subjective Subjective Remarks asleep in nad Objective Medications Current Medications Medications (Trade) Dose Ordered Sig/Nancy Route Start Time Stop Time Status Last Admin (Reglan Inj) 5 mg Q6H PRN IV PUSH 11/22/17 13:30 (Narcan Inj) 0.4 mg UNSCH PRN IV PUSH 11/22/17 13:30 (Valorie-Colace) 1 tab BID PO 11/22/17 21:00 11/26/17 07:59 (Milk Of Magnesia Liq) 30 ml Q12H PRN PO 11/22/17 13:30 (Senokot) 17.2 mg Q12H PRN PO 11/22/17 13:30 (Dulcolax Supp) 10 mg DAILY PRN RECTAL 11/22/17 13:30 (Lactulose Liq) 30 ml DAILY PRN PO 11/22/17 13:30 (Carafate Liq) 1 gm ACHS PO 11/22/17 21:00 11/26/17 12:06 (Coreg) 6.25 mg Q12HR PO 11/22/17 21:00 Future Hold (Lipitor) 20 mg HS PO 11/22/17 21:00 11/25/17 20:39 (Nitrostat Sl) 0.4 mg Q5M PRN SL 11/22/17 17:45 11/26/17 08:26 Nitroglycerin/ Dextrose 250 ml @ 1.5 mls/hr TITRATE PRN IV 11/22/17 17:45 11/22/17 18:01 (NS Flush) 2 ml UNSCH PRN IV FLUSH 11/22/17 21:00 (NS Flush) 2 ml BID IV FLUSH 11/22/17 21:00 11/26/17 08:00 (Aspirin Chew) 162 mg DAILY PO 11/23/17 09:00 11/26/17 08:00 Heparin Sodium/ Dextrose 250 ml @ 10 mls/hr TITRATE PRN IV 11/23/17 06:30 11/26/17 03:14 (Heparin Inj) 5,000 units UNSCH PRN IV PUSH 11/23/17 06:30 (Heparin Inj) 2,500 units UNSCH PRN IV PUSH 11/23/17 06:30 11/25/17 08:34 (Zofran Odt) 4 mg Q6H PRN PO 11/23/17 11:15 11/26/17 08:25 (Protonix Inj) 40 mg Q12HR IV PUSH 11/23/17 12:15 11/26/17 07:59 (Morphine Inj) 4 mg Q3H PRN IV PUSH 11/23/17 16:30 11/26/17 08:36 (Roxicodone) 5 mg Q4H PRN PO 11/23/17 15:45 11/26/17 09:15 Dexmedetomidine HCl 1000 mcg/ Sodium Chloride 250 ml @ 5.44 mls/hr TITRATE PRN IV 11/24/17 22:00 11/26/17 09:52 (Xanax) 1 mg Q6H PRN PO 11/24/17 23:00 11/26/17 05:35 (Duoneb Neb) 1 ampule Q4HR NEB NEB 11/25/17 12:00 11/26/17 12:30 (Duoneb Neb) 1 ampule Q2HR NEB PRN NEB 11/25/17 11:15 (Symbicort 160-4.5 Mcg Inh) 2 puff Q12HR INH 11/25/17 11:15 11/26/17 08:00 Vital Signs / I&O Vital Signs Date Time Temp Pulse Resp B/P (MAP) Pulse Ox O2 Delivery O2 Flow Rate FiO2 11/26/17 13:00 113/69 (102) 11/26/17 12:00 109/78 (95) 11/26/17 11:00 96/61 (90) 11/26/17 11:00 97.9 81 18 127/70 (89) 95 11/26/17 11:00 95 Nasal Cannula 5.00 11/26/17 11:00 95 11/26/17 10:00 107/66 (96) 11/26/17 09:00 94/57 (82) 11/26/17 08:51 94 5.00 11/26/17 08:00 98/60 (60) 11/26/17 08:00 98/ 11/26/17 07:00 97 Nasal Cannula 5.00 11/26/17 07:00 104/62 (99) 11/26/17 07:00 97.9 68 18 134/72 (92) 97 11/26/17 07:00 65 11/26/17 06:00 108/79 (95) 11/26/17 05:00 109/57 (95) 11/26/17 04:00 106/70 (99) 11/26/17 03:52 98 Nasal Cannula 5.00 11/26/17 03:52 71 11/26/17 03:52 98.2 75 18 122/65 (84) 98 111/66 (81) 11/26/17 03:00 111/66 (98) 11/26/17 02:00 113/71 (105) 11/26/17 01:00 113/62 (101) 11/26/17 00:39 86 11/26/17 00:39 95 Nasal Cannula 5.00 11/26/17 00:39 98.0 86 17 109/60 (76) 96 95/61 (72) 11/26/17 00:00 119/69 (104) 11/25/17 23:00 95/61 (86) 11/25/17 22:23 97 Nasal Cannula 4.00 11/25/17 22:00 95/64 (86) 11/25/17 21:00 99/63 (89) 11/25/17 20:00 102/68 (98) 11/25/17 19:41 95 Nasal Cannula 4.00 11/25/17 19:41 97.9 66 17 142/89 (106) 96 108/70 (83) 11/25/17 19:00 108/70 (105) 11/25/17 19:00 66 11/25/17 18:00 101/63 (92) 11/25/17 17:00 96/61 (89) 11/25/17 16:06 100/66 (97) 11/25/17 15:15 94 Nasal Cannula 4.00 11/25/17 15:00 97.7 63 18 121/86 (98) 97 11/25/17 15:00 98/65 (98) 11/25/17 15:00 65 11/25/17 14:00 90/60 (86) I/O 11/25/17 11/25/17 11/25/17 11/26/17 11/26/17 11/26/17 07:00 15:00 23:00 07:00 15:00 23:00 Intake Total 991 ml 603 ml 1011 ml Output Total 1060 ml 1700 ml 2575 ml Balance -69 ml -1097 ml -1564 ml Intake Oral 480 ml 250 ml 600 ml IV Total 511 ml 353 ml 411 ml Output Urine Total 1060 ml 1700 ml 2575 ml # Bowel Movements 0 0 Physical Exam GENERAL: SKIN: Warm and dry. HEAD: Normocephalic. EYES: No scleral icterus. No injection or drainage. NECK: Supple, trachea midline. No JVD or lymphadenopathy. CARDIOVASCULAR: Regular rate and rhythm without murmurs, gallops, or rubs. RESPIRATORY: Breath sounds equal bilaterally. No accessory muscle use. GASTROINTESTINAL: Abdomen soft, non-tender, nondistended. MUSCULOSKELETAL: No cyanosis, or edema. BACK: Nontender without obvious deformity. No CVA tenderness. Laboratory Laboratory Tests Test 11/25/17 20:45 11/26/17 06:02 Activated Partial Thromboplast Time 42.6 SEC 42.1 SEC White Blood Count 7.8 TH/MM3 Red Blood Count 4.87 MIL/MM3 Hemoglobin 14.7 GM/DL Hematocrit 42.8 % Mean Corpuscular Volume 87.8 FL Mean Corpuscular Hemoglobin 30.2 PG Mean Corpuscular Hemoglobin Concent 34.4 % Red Cell Distribution Width 13.2 % Platelet Count 170 TH/MM3 Mean Platelet Volume 8.0 FL Neutrophils (%) (Auto) 85.9 % Lymphocytes (%) (Auto) 11.3 % Monocytes (%) (Auto) 2.7 % Eosinophils (%) (Auto) 0.0 % Basophils (%) (Auto) 0.1 % Neutrophils # (Auto) 6.7 TH/MM3 Lymphocytes # (Auto) 0.9 TH/MM3 Monocytes # (Auto) 0.2 TH/MM3 Eosinophils # (Auto) 0.0 TH/MM3 Basophils # (Auto) 0.0 TH/MM3 CBC Comment DIFF FINAL Differential Comment Blood Urea Nitrogen 10 MG/DL Creatinine 0.86 MG/DL Random Glucose 183 MG/DL Calcium Level 8.3 MG/DL Sodium Level 139 MEQ/L Potassium Level 3.9 MEQ/L Chloride Level 106 MEQ/L Carbon Dioxide Level 21.1 MEQ/L Anion Gap 12 MEQ/L Estimat Glomerular Filtration Rate 94 ML/MIN Assessment and Plan Problem List: (1) NSTEMI (non-ST elevated myocardial infarction) ICD Codes: I21.4 - Non-ST elevation (NSTEMI) myocardial infarction Status: Acute (2) Tobacco abuse ICD Codes: Z72.0 - Tobacco use Status: Acute (3) CHF (congestive heart failure) ICD Codes: I50.9 - Heart failure, unspecified Status: Acute (4) Elevated LFTs ICD Codes: R94.5 - Abnormal results of liver function studies Status: Chronic (5) Cardiomyopathy ICD Codes: I42.9 - Cardiomyopathy, unspecified Status: Acute Permanent Comment: acute on chronic Last Edited By: Josette Cano on Nov 23, 2017 20:39 (6) Abdominal pain ICD Codes: R10.9 - Unspecified abdominal pain Status: Acute Assessment and Plan 1.) 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
[2017-11-26] MEDS ORDERED: LORazepam 2 MG/ML VIAL ONE (21:29)
[2017-11-26] MEDS ORDERED: LORazepam 2 MG/ML VIAL IV ONE (21:45)
[2017-11-27] MEDS: DEXMEDETOMIDINE INJ 1,000 MCG in SODIUM CHLOR 0.9% 250 ML INJ 240 ML IV PRN (00:15)
[2017-11-27] MEDS: HEPARIN 25,000 UNITS-D5W 250 ML - PREMIX IV PRN (00:15)
[2017-11-27] MEDS: ALPRAZolam 1 MG TAB PO PRN (00:30)
[2017-11-27] MEDS: RESP: ALBUTEROL 2.5 MG/IPRATROPIUM 0.5 MG NEB (SCH) NEB (00:40)
--- NOTE | 2017-11-27 18:34 | EKG ---
Date Performed: 11/26/2017 Time Performed: 08:40:26 PTAGE: 52 years EKG: Sinus rhythm Possible septal infarct - age undetermined Lateral ST-T changes are nonspecific Low QRS voltages in precordial leads Abnormal ECG PREVIOUS TRACING 11/23/17 @ 06.24 Since the previous tracing, no significant change noted DOCTOR: Margot Maldonado Interpretating Date/Time 11/27/2017 18:33:48
== END 2017-11-27 01:26 | disposition short-term general hospital (02) | DRG 270 ==
LOC: PHED 11:20 → PHEDA 13:38 → PH3A 14:41 → HCIS 17:41 → OBSVTOIN 21:01 → HCVI 21:58 → HCPC 11-25 08:07 → HCVI 11-25 08:15
PROVIDERS: ADMIT Emergency Medicine; ATTEND Emergency Medicine
PROC: 5A02210 Assistance with Cardiac Output using Balloon Pump, Continuous (ICD-10-PCS; principal; 2017-11-22)
PROC: 4A023N7 Measurement of Cardiac Sampling and Pressure, Left Heart, Percutaneous Approach (ICD-10-PCS; 2017-11-22)
PROC: B2151ZZ Fluoroscopy of Left Heart using Low Osmolar Contrast (ICD-10-PCS; 2017-11-22)
PROC: B2111ZZ Fluoroscopy of Multiple Coronary Arteries using Low Osmolar Contrast (ICD-10-PCS; 2017-11-22)
PROC: B3101ZZ Fluoroscopy of Thoracic Aorta using Low Osmolar Contrast (ICD-10-PCS; 2017-11-22)
PROC: B41F1ZZ Fluoroscopy of Right Lower Extremity Arteries using Low Osmolar Contrast (ICD-10-PCS; 2017-11-22)
DX: I21.4 Non-ST elevation (NSTEMI) myocardial infarction (principal); R57.0 Cardiogenic shock; J96.90 Respiratory failure, unspecified, unspecified whether with hypoxia or hypercapnia; I11.0 Hypertensive heart disease with heart failure; I50.9 Heart failure, unspecified; I42.9 Cardiomyopathy, unspecified; D75.1 Secondary polycythemia; I25.3 Aneurysm of heart; R16.0 Hepatomegaly, not elsewhere classified; K76.0 Fatty (change of) liver, not elsewhere classified; N20.0 Calculus of kidney; I25.10 Atherosclerotic heart disease of native coronary artery without angina pectoris; R73.9 Hyperglycemia, unspecified; E78.5 Hyperlipidemia, unspecified; E66.9 Obesity, unspecified; Z68.33 Body mass index [BMI] 33.0-33.9, adult; R33.9 Retention of urine, unspecified; M54.9 Dorsalgia, unspecified; Z87.891 Personal history of nicotine dependence
CPT/HCPCS: 33967; 71045; 74177; 80048; 80053; 80061; 80074; 81001; 82550; 82552; 83036; 83605; 83690; 83735; 83880; 84100; 84484; 85002; 85025; 85027; 85610; 85730; 93005; 93306; 93458; 93567; 93880; 94150; 94640; 94664; 96361; 96374; 96376; 99152; 99153; C1769; C1893; C9113; J1170; J1644; J1940; J2060; J2250; J2270; J2405; J2920; J3010; J7030; J7050; Q9967

== ENCOUNTER 2018-06-09 17:23 | Observation (INO) ==
--- NOTE | 2018-06-09 18:40 | ED ---
HPI General Chief Complaint: Chest Pain Stated Complaint: chest pain Time Seen by Provider: 06/09/18 18:13 History of Present Illness HPI narrative: This patient complains of chest pain. Started today around 10 AM. Symptoms come and go. Last about 5 minutes and resolved. They are not exertional chest. He describes it as a burning pain. History of his bypass grafting in [place] in November of this year. No stress testing or catheterization since. Severity is moderate. No alleviating factors. No exacerbating factors. He is currently pain-free. He takes a daily aspirin and Plavix. Related Data Home Medications Medication Instructions Recorded Confirmed apixaban [Eliquis] 5 mg PO BID 06/09/18 06/09/18 atorvastatin 80 mg PO QPM 06/09/18 06/09/18 bupropion HCl [Wellbutrin SR] 150 mg PO BID 06/09/18 06/09/18 clopidogrel 75 mg PO BID 06/09/18 06/09/18 fenofibrate 40 mg PO DAILY 06/09/18 06/09/18 furosemide [Lasix] 40 mg PO DAILY 06/09/18 06/09/18 lisinopril 10 mg PO DAILY 06/09/18 06/09/18 metoprolol succinate 50 mg PO DAILY 06/09/18 06/09/18 pantoprazole [Protonix] 40 mg PO DAILY 06/09/18 06/09/18 potassium chloride 10 meq PO BID 06/09/18 06/09/18 Allergies Allergy/AdvReac Type Severity Reaction Status Date / Time No Known Allergies Allergy Verified 06/09/18 17:39 Review of Systems ROS: all other systems reviewed are negative [facility] Medical History Medical History HTN (hypertension) (Acute) High cholesterol (Acute) Left ventricular aneurysm (Acute) Surgical History Surgical History Hx of CABG (Acute) Social History Social History Substance History: No History of Abuse Smoking Status: Former smoker How Often Do You Have a Drink Containing Alcohol: Never Recent Travel in [facility] within the Last 8 Weeks: No Recent Out of Country Travel within the Last 8 Weeks: No Immunization History Tetanus Immunization: <5 Years Exam Narrative Exam Narrative: GENERAL: Well-nourished, well-developed patient in no apparent distress. SKIN: Focused skin assessment reveals no rash and nodules. Skin is Warm and dry. HEAD: Atraumatic. Normocephalic. EYES: Pupils equal and round. No scleral icterus. No injection or drainage. ENT: No nasal bleeding or discharge. Mucous membranes pink and moist. NECK: Trachea midline. No JVD. CARDIOVASCULAR: Regular rate and rhythm. No murmur appreciated. RESPIRATORY: No accessory muscle use. Clear to auscultation. Breath sounds equal bilaterally. GASTROINTESTINAL: Abdomen soft, non-tender, nondistended. Hepatic and splenic margins not palpable. MUSCULOSKELETAL: No obvious deformities. No clubbing. No cyanosis. No edema. Has keloid formation over his sternal scar NEUROLOGICAL: Awake and alert. No obvious cranial nerve deficits. Motor grossly within normal limits. Normal speech. PSYCHIATRIC: Appropriate mood and affect; insight and judgment normal. Course Initial Documented Vital Signs Temperature 98.0 F 06/09/18 17:24 Pulse Rate 104 H 06/09/18 17:24 Respiratory Rate 18 06/09/18 17:24 Blood Pressure 158/74 H 06/09/18 17:24 Pulse Oximetry 99 06/09/18 17:24 Last Documented Vital Signs Temperature 98.0 F 06/09/18 17:24 Pulse Rate 67 06/09/18 19:24 Respiratory Rate 16 06/09/18 19:24 Blood Pressure 111/68 06/09/18 19:24 Pulse Oximetry 96 06/09/18 19:24 Sign Out Sign Out Data: Patient Sign Out occurred on 06/09/18 at 19:31. Patient's care was discussed, and care was transferred from Joel Mooney MD to Lia Wooten MD. Sign Out Comment: Patient's workup is in progress. He will be a telemetry observation to the hospitalist. Dr. Wooten will assist with this disposition as his cardiac enzymes are still pending. He is pain-free at this time. Last updated by Joel Mooney MD at 06/09/18 19:25 Post-Handoff Eval: The patient's case was checked out to me by Dr. Mooney at the conclusion of his shift. Please see his initial history and physical. The patient presented with chest pain. The patient reportedly had an episode of atrial flutter associated with chest pain that was captured on telemetry in the emergency department. The patient spontaneously converted on his own. The patient reportedly has no prior history of irregular heartbeat. The patient does however have a history of coronary artery disease and is on aspirin and Plavix. The patient is status post CABG. During the course of the patient's emergency department visit, the patient was placed on a court monitor with oximetry and frequent blood pressure monitoring. The patient had IV access obtained and blood work sent for analysis. The patient's diagnostic studies are remarkable for a white count of 10, hemoglobin 14, platelets 303 with a monocytosis of 11, PT PTT within normal limits, chemistries remarkable for a GFR of 60, glucose 119, calcium 8.7, initial set of cardiac enzymes are within normal limits, a chest x-ray shows no acute cardiopulmonary disease, however it was a poor inspiration which showed some mild crowding of the pulmonary vasculature. The patient's case including history, pertinent physical examination findings, and laboratory studies were discussed with Dr. Wooten, the family practice resident. It was agreed that the patient would be admitted to the family medicine service. The patient's results were discussed with the patient, including the plan of care. I explained that further testing and/ or monitoring is indicated based on the patient's history, examination, and/ or laboratory findings. Therefore, I recommended admission for additional evaluation. The patient expressed understanding and was agreeable with this plan. The patient was admitted to the hospital in guarded condition and sent to a bed under the care of the residents. Medical Decision Making MDM Narrative Medical decision making narrative: 52-year-old male with history of coronary artery disease who presents with intermittent chest discomfort. IV placed and labs sent. EKG shows sinus rhythm without ST elevation. At one point he went into atrial flutter which was captured on the monitor and at that point he was having chest discomfort. It spontaneously resolved after a brief period and his symptoms did as well. Medical Screen Exam Complete: Yes Emergency Medical Condition: Yes Differential Diagnosis Differential Diagnosis: Differential diagnosis includes OR, angina, pericarditis , pleurisy, GERD, anxiety. Medical Records Medical records reviewed: Yes I reviewed the patient's medical records. Lab Data Lab results reviewed: Yes I reviewed the patient's lab results. Result diagrams: 06/09/18 19:00 06/09/18 19:00 Lab Results 06/09/18 06/09/18 06/09/18 Range/Units 19:00 19:00 19:00 WBC 10.0 (4.0-11.0) th/mm3 RBC 4.67 (4.50-5.90) mil/mm3 Hgb 14.0 (13.0-17.0) gm/dL Hct 41.9 (39.0-51.0) % MCV 89.7 (80.0-100.0) fL MCH 29.9 (27.0-34.0) pg MCHC 33.3 (32.0-36.0) % RDW 14.8 (11.6-17.2) % Plt Count 303 (150-450) th/mm3 MPV 8.5 (7.0-11.0) fL Neut % (Auto) 55.4 (16.0-70.0) % Lymph % (Auto) 31.4 (9.0-44.0) % [place] % (Auto) 11.0 H (0.0-8.0) % Eos % (Auto) 1.5 (0.0-4.0) % Baso % (Auto) 0.7 (0.0-2.0) % Neut # (Auto) 5.5 (1.8-7.7) th/mm3 Lymph # (Auto) 3.1 (1.0-4.8) th/mm3 [place] # (Auto) 1.1 H (0.0-0.9) th/mm3 Eos # (Auto) 0.2 (0.0-0.4) th/mm3 Baso # (Auto) 0.1 (0.0-0.2) th/mm3 WBC Differential . Differential Comment Auto diff final PT 10.4 (9.8-11.6) sec INR 1.0 Ratio APTT 26.1 (23.4-31.7) sec Sodium 140 (136-145) meq/L Potassium 4.0 (3.5-5.1) meq/L Chloride 104 (98-107) meq/L Carbon Dioxide 29.6 (21.0-32.0) meq/L Anion Gap 6 (5-15) meq/L BUN 14 (7-18) mg/dL Creatinine 1.27 (0.60-1.30) mg/dL Estimated GFR 60 L (>89) mL/min Random Glucose 119 H (74-106) mg/dL Calcium 8.7 (8.5-10.1) mg/dL Total Bilirubin 0.3 (0.2-1.0) mg/dL AST 22 (15-37) U/L ALT 33 (12-78) U/L Alkaline Phosphatase 68 (45-117) U/L Total Creatine Kinase (39-308) U/L Troponin I Less than 0.02 L (0.02-0.05) ng/mL Total Protein 7.6 (6.4-8.2) g/dL Albumin 3.8 (3.4-5.0) g/dL 06/09/18 Range/Units 19:00 WBC (4.0-11.0) th/mm3 RBC (4.50-5.90) mil/mm3 Hgb (13.0-17.0) gm/dL Hct (39.0-51.0) % MCV (80.0-100.0) fL MCH (27.0-34.0) pg MCHC (32.0-36.0) % RDW (11.6-17.2) % Plt Count (150-450) th/mm3 MPV (7.0-11.0) fL Neut % (Auto) (16.0-70.0) % Lymph % (Auto) (9.0-44.0) % [place] % (Auto) (0.0-8.0) % Eos % (Auto) (0.0-4.0) % Baso % (Auto) (0.0-2.0) % Neut # (Auto) (1.8-7.7) th/mm3 Lymph # (Auto) (1.0-4.8) th/mm3 [place] # (Auto) (0.0-0.9) th/mm3 Eos # (Auto) (0.0-0.4) th/mm3 Baso # (Auto) (0.0-0.2) th/mm3 WBC Differential Differential Comment PT (9.8-11.6) sec INR Ratio APTT (23.4-31.7) sec Sodium (136-145) meq/L Potassium (3.5-5.1) meq/L Chloride (98-107) meq/L Carbon Dioxide (21.0-32.0) meq/L Anion Gap (5-15) meq/L BUN (7-18) mg/dL Creatinine (0.60-1.30) mg/dL Estimated GFR (>89) mL/min Random Glucose (74-106) mg/dL Calcium (8.5-10.1) mg/dL Total Bilirubin (0.2-1.0) mg/dL AST (15-37) U/L ALT (12-78) U/L Alkaline Phosphatase (45-117) U/L Total Creatine Kinase 62 (39-308) U/L Troponin I (0.02-0.05) ng/mL Total Protein (6.4-8.2) g/dL Albumin (3.4-5.0) g/dL Imaging Data Attestation: I personally reviewed and interpreted this imaging study as follows : Radiologist's impression: Chest X-Ray 06/09/18 18:41 CONCLUSION: 1. Poor inspiration. 2. Mildly prominent cardiac shadow and possible mild pulmonary vascular congestion or vascular crowding related to poor inspiration. ECG Data EKG Prior to Arrival: No Attestation: I personally reviewed and interpreted this ECG as follows: Prior ECG tracings: not available for review Interpretation: EKG shows a sinus rhythm at 81. VA interval is 152 ms. [place] is normal. Sinus rhythm without ectopy or ST elevation. Discharge Plan Discharge Disposition Patient Disposition: ED Admit(ED Internal Use Only) Discharge Order Discharge Orders: ED Use Only Admit Order (Routine); Ordered 06/09/18 Ordered By: Lia Wooten Discharge Details Diagnosis: Chest pain, rule out acute myocardial infarction, Atrial flutter, paroxysmal Physicians Team ED Provider: Lia Wooten Primary Care Provider: Vandana Hollins Attending Provider: Cm Trevizo Other Providers: [facility],Insurance Discharge Interventions Interventions: Vital Signs Last Done: 06/09/18 19:24 Status ED Status: Admitted Observation Patient
--- NOTE | 2018-06-09 19:02 | XR ---
EXAM DATE: 06/09/2018 6:58 PM EST AGE/SEX: 52 years / Male INDICATIONS: Chest pain worsening over the past few days. CLINICAL DATA: This is the patient's initial encounter. Patient reports that signs and symptoms have been present for 3 days and indicates a pain score of 7/10. MEDICAL/SURGICAL HISTORY: . Gastroesophageal reflux disease. Ulcers. . Orthopedic surgery COMPARISON: [facility] – [place], CHEST SINGLE AP, 11/23/2017. . FINDINGS: Median sternotomy wires are noted status post cardiac surgery. There is a suboptimal inspiration. The heart is prominent. There is possible mild pulmonary vascular congestion or vascular crowding relate d to the poor inspiration. CONCLUSION: 1. Poor inspiration. 2. Mildly prominent cardiac shadow and possible mild pulmonary vascular congestion or vascular crowd ing related to poor inspiration. Electronically signed by: Blaine Cox MD Board Certified Radiologist 06/09/2018 7:00 PM EST
[2018-06-09 19:11] LABS: Baso # (Auto) 0.1 th/mm3 (0.0-0.2); Baso % (Auto) 0.7 % (0.0-2.0); Eos # (Auto) 0.2 th/mm3 (0.0-0.4); Eos % (Auto) 1.5 % (0.0-4.0); Hematocrit 41.9 % (39.0-51.0); Lymph # (Auto) 3.1 th/mm3 (1.0-4.8); Lymph % (Auto) 31.4 % (9.0-44.0); Mean Corpuscular HGB Conc 33.3 % (32.0-36.0); Mean Corpuscular Hemoglobin 29.9 pg (27.0-34.0); Mean Corpuscular Volume 89.7 fL (80.0-100.0); Mean Platelet Volume 8.5 fL (7.0-11.0); Mono # (Auto) 1.1 th/mm3 (0.0-0.9); Neut # (Auto) 5.5 th/mm3 (1.8-7.7); Neut % (Auto) 55.4 % (16.0-70.0); Platelet Count 303 th/mm3 (150-450); Red Blood Count 4.67 mil/mm3 (4.50-5.90); Red Cell Distribution Width 14.8 % (11.6-17.2)
[2018-06-09 19:17] LABS: Activated Partial Thrombo Time 26.1 sec (23.4-31.7); Prothrombin Time 10.4 sec (9.8-11.6)
[2018-06-09 19:25] LABS: Albumin 3.8 g/dL (3.4-5.0); Anion Gap 6 meq/L (5-15); Aspartate Aminotransferase 22 U/L (15-37); Blood Urea Nitrogen 14 mg/dL (7-18); Calcium 8.7 mg/dL (8.5-10.1); Carbon Dioxide 29.6 meq/L (21.0-32.0); Chloride 104 meq/L (98-107); Glomerular Filtration Rate 60 mL/min (>89); Glucose,Random 119 mg/dL (74-106); Sodium 140 meq/L (136-145)
[2018-06-09 19:26] LABS: Alanine Aminotransferase 33 U/L (12-78)
[2018-06-09 19:30] LABS: Alkaline Phosphatase 68 U/L (45-117); Total Protein 7.6 g/dL (6.4-8.2)
--- NOTE | 2018-06-09 20:46 | P.HPFP ---
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 Complains of a burning pain under left breast for past couple days. Occurs intermittently for a few minutes then spontaneously resolves. Pain at worst is 8/10 on pain scale. The pain will last 5 seconds to 5 minutes and is non radiating. Associated sxs include nausea and sweating/diaphoresis. Occurs at rest and with activity, but patient does not notice any correlation between the activity level and the pain. Friday night was very nauseous but had no chest pain. He has had some lightheadedness. Has noticed palpations with nausea on and off this past week. Is not the same pain as his OK, which was a burning pain in the middle of his epigastric area November 22 and was transferred to [place] for surgery due to the LV aneurysm. He needed a 4 CABG surgery, but only 2 vessels were done, cannot recall why, and no stents placed. The left ventricular aneurysm was repaired at that time. In March, ECHO showed EF 45%. Takes Plavix 75 daily, baby aspirin, and Lopressor daily. Does not take Eliquis. Took 3 baby aspirin today before coming into the ED. Has not had any nitroglycerin. PMHx: OK, bone fractures, possible GERD, denies HTN SurgHx: CABG 11/19/2017, tibial fracture, rectal tear surgery FMH: Mom CVD ( at 62) Social: former tobacco smoker. Quit in November. Formerly 2 ppd x 20 years. Denies any alcohol or drug use. 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 Lives at home with significant other. Has been active weeks ago riding bike 2 miles a day. Allergies: denies - Diagnosis (1) Chest pain (2) Paroxysmal atrial flutter (3) Hx of six vessel coronary artery bypass graft (4) Tobacco use disorder, moderate, in early remission (5) Nutrition, metabolism, and development symptoms Review of Systems Constitutional: Denies chills, Denies fever(s), Denies headache(s), Denies night sweats Eyes: Denies change in vision Ears, Nose, Mouth, and Throat: Reports dizziness, Denies headache(s), Denies nasal discharge, Denies sinus pressure Cardiovascular: Reports chest pain, Reports chest pain at rest, Reports chest pain with activity, Reports excessive sweating, Reports irregular heart rhythm, Reports leg swelling (LE edema 2+ pitting but not today), Reports lightheadedness, Reports shortness of breath, Denies fainting Respiratory: Denies chest congestion, Denies cough Gastrointestinal: Reports nausea, Denies abdominal pain, Denies loose stools, Denies vomiting Genitourinary: Denies painful urination Musculoskeletal: Denies back pain Skin/Breast: Denies lesions, Denies rash Neurologic: Reports dizziness, Denies headache(s) PMFSH - History History Provided By: Patient - Medical History Medical History: Medical History (Last Reviewed 06/09/18 @ 18:38 by Joel Mooney MD) HTN (hypertension) High cholesterol Left ventricular aneurysm - Surgical History Surgical History: Surgical History (Last Reviewed 06/09/18 @ 18:38 by Joel Mooney MD) Hx of CABG - Family History Family History: Family History (Last Updated 06/09/18 @ 21:35 by Madi Guevara MD, R2) Mother Cardiovascular disease Father Tobacco use - Social History I have reviewed the patient's Social History: Yes - Tobacco History Second Hand Smoke Exposure: No Tobacco Use In Past 30 Days: No Smoking Status: Former smoker Packs Per Day: 2 Years Smoked: 20 Number of Pack Years (if former smoker): 40 - Alcohol History How Often Do You Have a Drink Containing Alcohol: Monthly or less - Substance Use History Substance History: No History of Abuse - Travel History History of Recent Travel: No Recent Travel in the [place] Within the Last 8 Weeks: No Recent Travel Out of the Country Within the Last 8 Weeks: No - Immunization History Tetanus Immunization: <5 Years Medications and Allergies Active Medications: Active Medications Sodium Chloride (Ns Flush) 2 ml IV.FLUSH UNSCH PRN PRN Reason: FLUSH AFTER USING IV ACCESS Allergies Allergy/AdvReac Type Severity Reaction Status Date / Time No Known Allergies Allergy Verified 06/09/18 17:39 Home Medications Medication Instructions Recorded Confirmed Type apixaban [Eliquis] 5 mg PO BID 06/09/18 06/09/18 History atorvastatin 80 mg PO QPM 06/09/18 06/09/18 History bupropion HCl [Wellbutrin SR] 150 mg PO BID 06/09/18 06/09/18 History clopidogrel 75 mg PO BID 06/09/18 06/09/18 History fenofibrate 40 mg PO DAILY 06/09/18 06/09/18 History furosemide [Lasix] 40 mg PO DAILY 06/09/18 06/09/18 History lisinopril 10 mg PO DAILY 06/09/18 06/09/18 History metoprolol succinate 50 mg PO DAILY 06/09/18 06/09/18 History pantoprazole [Protonix] 40 mg PO DAILY 06/09/18 06/09/18 History potassium chloride 10 meq PO BID 06/09/18 06/09/18 History Exam Vital signs: Vital Signs 06/09/18 17:24 06/09/18 17:30 06/09/18 19:01 Temperature 98.0 F Pulse Rate 104 H 93 H 75 Respiratory Rate 18 14 Blood Pressure 158/74 H 134/78 Pulse Oximetry 99 100 97 06/09/18 19:24 Temperature Pulse Rate 67 Respiratory Rate 16 Blood Pressure 111/68 Pulse Oximetry 96 Intake & Output 06/09/18 06/09/18 06/10/18 06:59 18:59 06:59 Weight 110.223 kg Narrative: GENERAL: 52 YO male sitting in bed in NAD SKIN: Warm and dry. No rash or lesions. HEAD: Normocephalic. Atraumatic. MMM. OP clear. EOMI/PERRLA. EYES: No scleral icterus. No injection or drainage. NECK: Supple, trachea midline. No JVD or lymphadenopathy. Normal thyroid. CARDIOVASCULAR: Regular rate and rhythm without murmurs, gallops, or rubs. Heart sounds distant. Peripheral pulses 1+. RESPIRATORY: Breath sounds equal bilaterally but reduced in all lung cosby. No accessory muscle use. GASTROINTESTINAL: Abdomen soft, non-tender, nondistended. +BS. MUSCULOSKELETAL: No cyanosis, or edema. BACK: Nontender without obvious deformity. Results - Labs Result diagrams: 06/09/18 19:00 06/09/18 19:00 Abnormal lab results 06/09/18 06/09/18 Range/Units 19:00 19:00 Emanuel % (Auto) 11.0 H (0.0-8.0) % Emanuel # (Auto) 1.1 H (0.0-0.9) th/mm3 Estimated GFR 60 L (>89) mL/min Random Glucose 119 H (74-106) mg/dL Troponin I Less than 0.02 L (0.02-0.05) ng/mL Short CBC 06/09/18 Range/Units 19:00 WBC 10.0 (4.0-11.0) th/mm3 Hgb 14.0 (13.0-17.0) gm/dL Hct 41.9 (39.0-51.0) % Plt Count 303 (150-450) th/mm3 BMP 06/09/18 19:00 Sodium 140 Potassium 4.0 Chloride 104 Carbon Dioxide 29.6 BUN 14 Creatinine 1.27 Calcium 8.7 Cardiac Enzymes 06/09/18 06/09/18 Range/Units 19:00 19:00 Total Creatine Kinase 62 (39-308) U/L Troponin I Less than 0.02 L (0.02-0.05) ng/mL Liver Function 06/09/18 Range/Units 19:00 Total Bilirubin 0.3 (0.2-1.0) mg/dL AST 22 (15-37) U/L ALT 33 (12-78) U/L Alkaline Phosphatase 68 (45-117) U/L Albumin 3.8 (3.4-5.0) g/dL - Imaging Impressions Chest X-Ray 06/09/18 18:41 CONCLUSION: 1. Poor inspiration. 2. Mildly prominent cardiac shadow and possible mild pulmonary vascular congestion or vascular crowding related to poor inspiration. Caprini VTE Risk Assessment Caprini VTE Risk Assessment: No/Low Risk (score <= 1) Assessment and Plan - Assessment (1) Chest pain Code(s): R07.9 - Chest pain, unspecified Status: Acute (2) Paroxysmal atrial flutter Code(s): I48.92 - Unspecified atrial flutter Status: Acute (3) Hx of six vessel coronary artery bypass graft Code(s): Z95.1 - Presence of aortocoronary bypass graft Status: Acute (4) Tobacco use disorder, moderate, in early remission Code(s): F17.201 - Nicotine dependence, unspecified, in remission Status: Acute (5) Nutrition, metabolism, and development symptoms Code(s): R63.8 - Other symptoms and signs concerning food and fluid intake Status: Acute - Assessment and Plan 52 YO male w/PMHx OK and LV aneurysm requiring 2 vessel CABG in December 01 and subsequent ECHO in March 2018 reported to show LVEF 45% and tobacco use in remission presents with intermittent burning left chest pain, nausea and diaphoresis x2 days. Troponin x1 <0.02 and EKG w/NSR and anteroseptal ST elevation. CXR showing increased cardiac silhouette and pulmonary vascular congestion. DDx: STEMI vs unstable angina vs pulmonary edema vs CHF exacerbation. Chest pain -- ACS r/o -Cardiology consult due to previous LV aneurysm -Tele -Continuous pulse ox -Supplemental O2 to titrate -Trend troponins and EKGs q6h -ECHO -BNP -TSH -Atorvastatin 80 mg -Plavix 75 mg -ASA -Fenofibrate 40 mg -Metoprolol succinate ER 50 mg daily -Heparin 5000 units q8h CHF -Lasix 40 mg daily Tobacco use in remission -Wellbutrin 150 mg FEN/GI/PPx PO Fluids Electrolytes wnl Nutrition cardiac diet; sodium restriction 2g daily GI: Protonix 40 mg daily KCl [address] Claudia Wooten (1) Chest pain Qualifiers: Chest pain type: unspecified Qualified Code(s): R07.9 - Chest pain, unspecified
[2018-06-09] MEDS ORDERED: Acetaminophen 325 MG Tablet PO PRN (21:03)
[2018-06-09] MEDS: Potassium Chloride 10 MEQ ER Capsule PO SCH (21:42)
[2018-06-09] MEDS: buPROPion 150 MG 12 HR Tablet PO SCH (21:42)
[2018-06-09] MEDS: Heparin - SQ 10,000 UNITS/ML Vial SQ SCH (23:00)
[2018-06-10 02:37] LABS: Alanine Aminotransferase 29 U/L (12-78); Albumin 3.3 g/dL (3.4-5.0); Anion Gap 5 meq/L (5-15); Aspartate Aminotransferase 12 U/L (15-37); Blood Urea Nitrogen 16 mg/dL (7-18); Calcium 8.4 mg/dL (8.5-10.1); Chloride 108 meq/L (98-107); Glomerular Filtration Rate 69 mL/min (>89); Glucose,Random 89 mg/dL (74-106); Potassium 4.3 meq/L (3.5-5.1); Sodium 141 meq/L (136-145)
[2018-06-10 02:42] LABS: Alkaline Phosphatase 59 U/L (45-117); Total Protein 6.4 g/dL (6.4-8.2)
[2018-06-10] MEDS: Heparin - SQ 10,000 UNITS/ML Vial SQ SCH ×3 (06:04→23:10)
[2018-06-10] MEDS: Potassium Chloride 10 MEQ ER Capsule PO SCH ×2 (12:32→20:22)
[2018-06-10] MEDS: Fenofibrate 48 MG Tablet PO SCH (12:33)
[2018-06-10] MEDS: Lisinopril 10 MG Tablet PO SCH (12:33)
[2018-06-10] MEDS: buPROPion 150 MG 12 HR Tablet PO SCH ×2 (12:33→20:22)
[2018-06-10] MEDS: Senna/Docusate Sodium 8.6/50 MG Tablet PO SCH ×2 (12:33→20:22)
--- NOTE | 2018-06-10 12:49 | P.PNFP ---
Subjective Interval history: Patient doing well today. Has no complaints, he had just returned from echo which did show good ejection fraction, and no acute abnormalities. Patient is very happy about his results. He is well invested in his health, and understands the disease process. Patient states that he is able to feel the pain yesterday when the atrial flutter was happening, the pain is exact same that he felt other times. He denies ever having a history of A. fib or atrial flutter. His pain is nonreproducible by palpation, he has attempted to reproduce this pain several times at home. States the pain comes randomly when he is walking around but usually not if his exercising. This morning patient is doing well, denies nausea or vomiting, denies shortness of breath. Discussed with patient he needs to be cleared by cardiology due to this new onset a flutter before he can be discharged home. Patient agrees with plan of care <Diaz Mcintyre Sirisha Melchor V - 06/10/18 13:30> Results - Labs Result diagrams: 06/09/18 19:00 06/10/18 02:10 <Cm Trevizo - 06/11/18 08:42> Abnormal lab results 06/10/18 Range/Units 08:42 Troponin I Less than 0.02 L (0.02-0.05) ng/mL Cardiac Enzymes 06/10/18 Range/Units 08:42 Troponin I Less than 0.02 L (0.02-0.05) ng/mL <Cm Trevizo - 06/11/18 08:42> Abnormal lab results 06/09/18 06/09/18 06/10/18 Range/Units 19:00 19:00 02:10 Maries % (Auto) 11.0 H (0.0-8.0) % Maries # (Auto) 1.1 H (0.0-0.9) th/mm3 Chloride 108 H (98-107) meq/L Estimated GFR 60 L 69 L (>89) mL/min Random Glucose 119 H (74-106) mg/dL Calcium 8.4 L (8.5-10.1) mg/dL AST 12 L (15-37) U/L Troponin I Less than 0.02 L Less than 0.02 L (0.02-0.05) ng/mL Albumin 3.3 L (3.4-5.0) g/dL 06/10/18 Range/Units 08:42 Maries % (Auto) (0.0-8.0) % Maries # (Auto) (0.0-0.9) th/mm3 Chloride (98-107) meq/L Estimated GFR (>89) mL/min Random Glucose (74-106) mg/dL Calcium (8.5-10.1) mg/dL AST (15-37) U/L Troponin I Less than 0.02 L (0.02-0.05) ng/mL Albumin (3.4-5.0) g/dL Short CBC 06/09/18 Range/Units 19:00 WBC 10.0 (4.0-11.0) th/mm3 Hgb 14.0 (13.0-17.0) gm/dL Hct 41.9 (39.0-51.0) % Plt Count 303 (150-450) th/mm3 BMP 06/09/18 06/10/18 19:00 02:10 Sodium 140 141 Potassium 4.0 4.3 Chloride 104 108 H Carbon Dioxide 29.6 28.0 BUN 14 16 Creatinine 1.27 1.13 Calcium 8.7 8.4 L Cardiac Enzymes 06/09/18 06/09/18 06/10/18 Range/Units 19:00 19:00 02:10 Total Creatine Kinase 62 (39-308) U/L Troponin I Less than 0.02 L Less than 0.02 L (0.02-0.05) ng/mL 06/10/18 Range/Units 08:42 Total Creatine Kinase (39-308) U/L Troponin I Less than 0.02 L (0.02-0.05) ng/mL Liver Function 06/09/18 06/10/18 Range/Units 19:00 02:10 Total Bilirubin 0.3 0.2 (0.2-1.0) mg/dL AST 22 12 L (15-37) U/L ALT 33 29 (12-78) U/L Alkaline Phosphatase 68 59 (45-117) U/L Albumin 3.8 3.3 L (3.4-5.0) g/dL <Sirisha Ahumada V - 06/10/18 12:49> - Imaging Impressions Chest X-Ray 06/09/18 18:41 CONCLUSION: 1. Poor inspiration. 2. Mildly prominent cardiac shadow and possible mild pulmonary vascular congestion or vascular crowding related to poor inspiration. <Sirisha Ahumada V - 06/10/18 12:49> Physical Exam Vital signs: Vital Signs 06/10/18 11:30 06/10/18 15:20 06/10/18 20:00 Temperature 97.8 F 98.3 F 97.9 F Pulse Rate 75 73 71 Respiratory Rate 16 16 16 Blood Pressure 106/71 117/56 L 102/60 Pulse Oximetry 95 96 96 06/10/18 23:59 06/11/18 00:00 06/11/18 04:00 Temperature 97.9 F Pulse Rate 71 70 Respiratory Rate 14 16 16 Blood Pressure 112/64 105/62 Pulse Oximetry 97 97 06/11/18 08:00 Temperature 98.1 F Pulse Rate 82 Respiratory Rate 16 Blood Pressure 134/74 Pulse Oximetry 98 Intake & Output 06/10/18 06/11/18 06/11/18 18:59 06:59 18:59 Intake Total 480 / 480 Balance 480 / 480 Intake: Oral 480 / 480 Other: # Voids 3 Date of Last Bowel Movement 06/10/18 <Cm Trevizo - 06/11/18 08:42> Vital Signs 06/09/18 17:24 06/09/18 17:30 06/09/18 19:01 Temperature 98.0 F Pulse Rate 104 H 93 H 75 Respiratory Rate 18 14 Blood Pressure 158/74 H 134/78 Pulse Oximetry 99 100 97 06/09/18 19:24 06/09/18 22:08 06/09/18 23:43 Temperature 98.1 F Pulse Rate 67 82 82 Respiratory Rate 16 18 18 Blood Pressure 111/68 136/79 108/55 L Pulse Oximetry 96 96 96 06/10/18 04:00 06/10/18 07:29 06/10/18 07:51 Temperature 98.3 F 97.9 F Pulse Rate 69 72 Respiratory Rate 18 16 Blood Pressure 100/58 L 103/60 Pulse Oximetry 98 97 98 06/10/18 11:30 Temperature 97.8 F Pulse Rate 75 Respiratory Rate 16 Blood Pressure 106/71 Pulse Oximetry 95 Intake & Output 06/09/18 06/10/18 06/10/18 18:59 06:59 18:59 Weight 110.223 kg 110.223 kg Other: # Voids 1 Weight On Admission 110.223 kg <Sirisha Ahumada V - 06/10/18 12:49> Narrative: GENERAL: 52 yo male sitting in bed in NAD SKIN: Warm and dry. No rash or lesions. CARDIOVASCULAR: Regular rate and rhythm without murmurs, gallops, or rubs. RESPIRATORY: Breath sounds equal bilaterally in all lung cosby. No accessory muscle use. GASTROINTESTINAL: Abdomen soft, non-tender, nondistended. +BS. MUSCULOSKELETAL: No cyanosis, or edema. BACK: Nontender without obvious deformity. <Sirisha Ahumada 06/10/18 13:30> Assessment and Plan - Assessment (1) Chest pain Code(s): R07.9 - Chest pain, unspecified Status: Acute (2) Paroxysmal atrial flutter Code(s): I48.92 - Unspecified atrial flutter Status: Acute (3) Hx of six vessel coronary artery bypass graft Code(s): Z95.1 - Presence of aortocoronary bypass graft Status: Chronic (4) Tobacco use disorder, moderate, in early remission Code(s): F17.201 - Nicotine dependence, unspecified, in remission Status: Chronic (5) Nutrition, metabolism, and development symptoms Code(s): R63.8 - Other symptoms and signs concerning food and fluid intake Status: Acute <Cm Trevizo - 06/11/18 08:42> (1) Chest pain Code(s): R07.9 - Chest pain, unspecified Status: Acute (2) Paroxysmal atrial flutter Code(s): I48.92 - Unspecified atrial flutter Status: Acute (3) Hx of six vessel coronary artery bypass graft Code(s): Z95.1 - Presence of aortocoronary bypass graft Status: Chronic (4) Tobacco use disorder, moderate, in early remission Code(s): F17.201 - Nicotine dependence, unspecified, in remission Status: Chronic (5) Nutrition, metabolism, and development symptoms Code(s): R63.8 - Other symptoms and signs concerning food and fluid intake Status: Acute <Sirisha Ahumada V 06/10/18 13:24> - Assessment and Plan 52 yo male w/PMHx NV and LV aneurysm requiring 2 vessel CABG in December 01 and subsequent ECHO in March 2018 reported to show LVEF 45% and tobacco use in remission presents with intermittent burning left chest pain, nausea and diaphoresis x2 days. Troponin x1 <0.02 and EKG w/NSR and anteroseptal ST elevation. CXR showing increased cardiac silhouette and pulmonary vascular congestion. DDx: STEMI vs unstable angina vs pulmonary edema vs CHF exacerbation. Chest pain -Cardiology consulted due to significant cardiac history -Telemetry -Continuous pulse ox -Supplemental O2 to titrate -Troponins negative x3 -ECHO WNL -BNP &TSH wnl Continue: -Atorvastatin 80 mg -Plavix 75 mg -ASA -Fenofibrate 40 mg -Metoprolol succinate ER 50 mg daily -Heparin 5000 units q8h Atrial Flutter New onset, not known history Cardiology consulted CHF -Lasix 40 mg daily Tobacco use in remission -Wellbutrin 150 mg FEN/GI/PPx PO Fluids Electrolytes wnl Nutrition cardiac diet; sodium restriction 2g daily GI: Protonix 40 mg daily KCl [address] Trevizo, and Dr. Calixto <Sirisha Ahumada V - 06/10/18 13:30> - Attending Attestation The exam, history, and the medical decision-making described in the above note were completed with the assistance of the resident physician. I reviewed and agree with the findings presented. I attest that I had a [id number] encounter with the patient on the same day, and personally performed and documented my assessment and findings in the medical record. <Cm Trevizo - 06/11/18 08:42> <Sirisha Ahumada V - Last Filed: 06/10/18 13:24> (1) Chest pain Qualifiers: Chest pain type: unspecified Qualified Code(s): R07.9 - Chest pain, unspecified <Cm Trevizo - Last Filed: 06/11/18 08:42> (1) Chest pain Qualifiers: Chest pain type: unspecified Qualified Code(s): R07.9 - Chest pain, unspecified <Diaz Mcintyre R1SirishaCallie - Last Filed: 06/10/18 13:24> (1) Chest pain Qualifiers: Chest pain type: unspecified Qualified Code(s): R07.9 - Chest pain, unspecified <Cm Trevizo - Last Filed: 06/11/18 08:42> (1) Chest pain Qualifiers: Chest pain type: unspecified Qualified Code(s): R07.9 - Chest pain, unspecified
--- NOTE | 2018-06-10 15:55 | ECHRPT ---
Indication: CHEST PAIN CONCLUSIONS Normal left ventricular size. The left ventricular systolic function is mildly decreased with an estimated ejection fraction of 45 %. Distal anteroseptal and apical hypokinesis. There is trace tricuspid valve regurgitation. The estimated pulmonary arterial pressure is 27 mmHg. BP: / HR: Rhythm: Sinus MEASUREMENTS (Male / Female) Normal Values Technical Quality:Fair 2D ECHO LV Diastolic Diameter PLAX 5.5 cm 4.2 - 5.9 / 3.9 - 5.3 cm LV Systolic Diameter PLAX 4.2 cm IVS Diastolic Thickness 0.7 cm 0.6 - 1.0 / 0.6 - 0.9 cm LVPW Diastolic Thickness 0.7 cm 0.6 - 1.0 / 0.6 - 0.9 cm LV Relative Wall Thickness 0.3 RV Internal Dim ED PLAX 3.0 cm LVOT Diameter 1.8 cm Aortic Root Diameter 2.7 cm LA Systolic Diameter LX 4.2 cm 3.0 - 4.0 / 2.7 - 3.8 cm DOPPLER AV Peak Velocity 109.0 cm/s AV Peak Gradient 4.8 mmHg AV Mean Gradient 3.0 mmHg AV Velocity Time Integral 21.0 cm LVOT Peak Velocity 52.6 cm/s LVOT Peak Gradient 1.1 mmHg LVOT Velocity Time Integral 10.9 cm AV Area Cont Eq vti 1.3 cm AV Area Cont Eq pk 1.2 cm Mitral E Point Velocity 65.6 cm/s Mitral A Point Velocity 47.9 cm/s Mitral E to A Ratio 1.4 LV E' Lateral Velocity 9.2 cm/s Mitral E to LV E' Lateral Ratio 7.2 LV E' Septal Velocity 6.7 cm/s Mitral E to LV E' Septal Ratio 9.7 TR Peak Velocity 203.0 cm/s TR Peak Gradient 16.5 mmHg Right Atrial Pressure 10.0 mmHg Pulmonary Artery Systolic Pressu 26.5 mmHg Right Ventricular Systolic Press 26.5 mmHg FINDINGS LEFT VENTRICLE Normal left ventricular size. The left ventricular systolic function is mildly decreased with an estimated ejection fraction of 45 %. S/P CABG w/distinct regional wall motion abnormalities. S/P resection of apical aneurysm. RIGHT VENTRICLE Normal right ventricular size and systolic function. LEFT ATRIUM The left atrial size is mildly dilated. RIGHT ATRIUM The right atrial size is normal. ATRIAL SEPTUM No atrial level shunt is demonstrated by color flow Doppler interrogation. AORTA The aortic root and proximal ascending aorta are not well visualized. MITRAL VALVE Structurally normal mitral valve. No mitral valve stenosis or regurgitation. AORTIC VALVE Trileaflet aortic valve. No aortic valve stenosis or regurgitation. TRICUSPID VALVE There is trace tricuspid valve regurgitation. The estimated pulmonary arterial pressure is 26.5 mmHg. PULMONARY VALVE The pulmonary valve is not well visualized. VESSELS The inferior vena cava is normal in size. PERICARDIUM No pericardial effusion. Hermelindo Cantu MD, FACC (Electronically Signed) Final Date:10 June 2018 15:53
--- NOTE | 2018-06-10 18:10 | ECG ---
Date Performed: 06/10/2018 Time Performed: 07:51:37 PTAGE: 52 years EKG: Sinus rhythm ANTEROSEPTAL MYOCARDIAL INFARCTION ABNORMAL ECG Since the PREVIOUS TRACING , no significant change noted DOCTOR: Hermelindo Cantu Interpretating Date/Time 06/10/2018 18:09:41
--- NOTE | 2018-06-10 18:25 | ECG ---
Date Performed: 06/10/2018 Time Performed: 01:16:55 PTAGE: 52 years EKG: Sinus rhythm LOW QRS VOLTAGE SEPTAL MYOCARDIAL INFARCTION ABNORMAL ECG PREVIOUS TRACING : 06/09/2018 17.48 Since the previous tracing, no significant change noted DOCTOR: Hermelindo Cantu Interpretating Date/Time 06/10/2018 18:23:30
--- NOTE | 2018-06-10 18:45 | ECG ---
Date Performed: 06/09/2018 Time Performed: 17:48:56 PTAGE: 52 years EKG: Sinus rhythm ANTEROSEPTAL MYOCARDIAL INFARCTION ABNORMAL ECG PREVIOUS TRACING : 11/26/2017 08.40 Since the previous tracing, no significant change noted DOCTOR: Hermelindo Cantu Interpretating Date/Time 06/10/2018 18:43:40
[2018-06-10] MEDS ORDERED: Melatonin 5 MG Tablet PO PRN (19:35)
--- NOTE | 2018-06-10 21:25 | MB ---
cc: Haris Truong DO DATE: 06/10/2018 REASON FOR CONSULTATION: Atrial flutter. HISTORY OF PRESENT ILLNESS: Dougie Hurst is a pleasant 52-year-old male who presented to [facility] due to intermittent chest pain for the past 2 days. He states that he gets a burning or fluttering under his left breast at different times throughout the day, whether he is up and moving or sitting still. When he is riding his bike at a high rate or exercising, he gets no episodes of chest pain. This burning/fluttering is different than what he has had in the past when he came in in November and was transferred to [place] for surgery. While in the emergency room, he was noted to be in atrial flutter on telemetry and this is when he was having the symptoms. He denies any other symptoms. He has a history of a myocardial infarction and was found to have multivessel disease with left main disease, LAD occlusion, and severe RCA disease. He was transferred to [place] where he had surgery for his left ventricular aneurysm and he states he was supposed to have 4-vessel bypass, but only got 2-vessel bypass. PAST MEDICAL HISTORY: 1. Coronary artery disease with a history of myocardial infarction. 2. Gastroesophageal reflux disease. PAST SURGICAL HISTORY: 1. CABG x 2 (11/19/2017) at [place] with LV aneurysm repair. 2. Tibial fracture. 3. Rectal surgery. ALLERGIES: NO KNOWN DRUG ALLERGIES. MEDICATIONS: 1. Toprol-XL 50 mg daily. 2. Lasix 40 mg daily. 3. Lipitor 80 mg every night. 4. Lisinopril 10 mg daily. 5. Fenofibrate 40 mg daily. 6. Plavix 75 mg b.i.d. 7. Wellbutrin 150 mg b.i.d. 8. Eliquis 5 mg b.i.d. 9. Potassium 10 mEq b.i.d. 10. Protonix 40 mg daily. FAMILY HISTORY: Mother had cardiovascular disease and passed at the age of 62. SOCIAL HISTORY: The patient previously smoked cigarettes. He quit in November. Before this, it was 2 packs a day for 20 years. Denies alcohol or drug abuse. 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 REVIEW OF SYSTEMS: Fourteen systems were reviewed including osteopathic. Pertinent positives and negatives above, otherwise negative. PHYSICAL EXAMINATION: VITAL SIGNS: Temperature 98.3, heart rate 73, blood pressure 117/56, respirations 16, pulse oximetry 96% on room air. GENERAL: The patient appears well, in no acute distress, alert, awake and oriented x 3. HEENT: Extraocular muscles intact. Mucous membranes moist. NECK: Supple. No JVD at 45 degrees. No carotid bruits heard bilaterally. Carotid upstroke is brisk in nature. HEART: Regular rate and rhythm. Positive first and second heart sound with no murmurs, gallops or rubs. LUNGS: Clear to auscultation bilaterally. No wheezes, rales or rhonchi. ABDOMEN: Soft, nontender, nondistended. No organomegaly noted. EXTREMITIES: Show no clubbing, cyanosis or edema. Femoral and distal pulses are intact bilaterally. NEUROLOGIC: No focal deficits. SKIN: Warm, dry and intact. OSTEOPATHIC: No kyphoscoliosis, lordosis or paraspinal tender points. LABORATORY DATA: Hemoglobin 14.0, hematocrit 41.9, platelets 303. Potassium 4.3, BUN 16, creatinine 1.13. Troponin negative x 3. Electrocardiogram (06/10/2018 at 0751): Sinus rhythm, anteroseptal myocardial infarction. IMPRESSION: 1. Atypical chest pain. 2. Atrial flutter, which appears to be new onset, although the patient is currently on Eliquis. 3. Coronary artery disease with a history of coronary artery bypass graft x 2 (11/2017 at [place]). 4. Previous LV aneurysm with repair (11/2017 at [place]). 5. Remote tobacco abuse. RECOMMENDATIONS: 1. Mr. Hurst presented with atypical chest pain, which feels like a burning or fluttering under his left breast, which may be due to atrial flutter. He had an episode while in the emergency room of the sensation which correlated with him being in atrial flutter, which converted by itself. 2. I would continue him on his Toprol to try to control his heart rates. 3. He currently is on Eliquis. He is not sure if this is due to his LV aneurysm or if he had atrial fibrillation or atrial flutter while in [place]. 4. He was told that he needed 4-vessel bypass, but only received 2-vessel bypass. Review of his cardiac catheterization from 11/2017 shows an occluded LAD and the only areas of bypass which are possible are the RCA and left circumflex, and so 2-vessel bypass would make sense at this time. 5. His previous echo shows a decreased ejection fraction with an LV aneurysm. Reviewed, but that echo as well as his new echo, which shows an ejection fraction of 45% and an akinetic apex, but no aneurysm. 6. We will watch him overnight and if stable, in the morning, consider discharge home, as I believe that his sensation that he is feeling is due to his atrial flutter. Troponins have been negative and the EKG shows no ischemia. Thank you for allowing me to see Dougie Hurst. If there are any questions, please do not hesitate to call. DO MAYNOR Adams/altagracia , 08:39 PM , 08:52 PM
[2018-06-11] MEDS: Heparin - SQ 10,000 UNITS/ML Vial SQ SCH ×2 (06:30→14:01)
--- NOTE | 2018-06-11 08:19 | ECG ---
Date Performed: 06/10/2018 Time Performed: 19:20:46 PTAGE: 52 years EKG: Sinus rhythm ANTEROSEPTAL MYOCARDIAL INFARCTION ABNORMAL ECG Since the PREVIOUS TRACING , no significant change noted PREVIOUS TRACIN06/10/18 19:20 DOCTOR: Margto Maldonado Interpretating Date/Time 06/11/2018 08:18:31
[2018-06-11] MEDS: Potassium Chloride 10 MEQ ER Capsule PO SCH (08:43)
[2018-06-11] MEDS: Lisinopril 10 MG Tablet PO SCH (08:44)
[2018-06-11] MEDS: Senna/Docusate Sodium 8.6/50 MG Tablet PO SCH (08:44)
[2018-06-11] MEDS: Fenofibrate 48 MG Tablet PO SCH (08:45)
[2018-06-11] MEDS: buPROPion 150 MG 12 HR Tablet PO SCH (08:45)
--- NOTE | 2018-06-11 08:50 | P.PNFP ---
Subjective Interval history: NAEON. No episodes of AFlutter. Dr Truong saw him yesterday and will assess for clearance to go home today. ECHO showing LVEF 45% which is consistent with previous in March. Pt is wondering if he can improve that number. We discussed diet and exercise and removing risk factors such as treating his HLD. He stopped smoking in November and does not drink any EtOH. He rides a bike daily for exercise. Denies CP, SOB, N/V/D, diaphoresis, abdominal or leg pain. Results - Labs Result diagrams: 06/11/18 09:35 06/11/18 09:35 Abnormal lab results 06/10/18 Range/Units 08:42 Troponin I Less than 0.02 L (0.02-0.05) ng/mL Cardiac Enzymes 06/10/18 Range/Units 08:42 Troponin I Less than 0.02 L (0.02-0.05) ng/mL Physical Exam Vital signs: Vital Signs 06/10/18 11:30 06/10/18 15:20 06/10/18 20:00 Temperature 97.8 F 98.3 F 97.9 F Pulse Rate 75 73 71 Respiratory Rate 16 16 16 Blood Pressure 106/71 117/56 L 102/60 Pulse Oximetry 95 96 96 06/10/18 23:59 06/11/18 00:00 06/11/18 04:00 Temperature 97.9 F Pulse Rate 71 70 Respiratory Rate 14 16 16 Blood Pressure 112/64 105/62 Pulse Oximetry 97 97 06/11/18 08:00 Temperature 98.1 F Pulse Rate 82 Respiratory Rate 16 Blood Pressure 134/74 Pulse Oximetry 98 Intake & Output 06/10/18 06/11/18 06/11/18 18:59 06:59 18:59 Intake Total 480 / 480 Balance 480 / 480 Intake: Oral 480 / 480 Other: # Voids 3 Date of Last Bowel Movement 06/10/18 Narrative: GENERAL: 52 yo male sitting at the edge of the bed in NAD. SKIN: Warm and dry. No rash or lesions. CARDIOVASCULAR: Regular rate and rhythm without murmurs, gallops, or rubs. RESPIRATORY: Breath sounds equal bilaterally in all lung cosby. No accessory muscle use. GASTROINTESTINAL: Abdomen soft, non-tender, nondistended. +BS. MUSCULOSKELETAL: No cyanosis, or edema. Assessment and Plan - Assessment (1) Chest pain Code(s): R07.9 - Chest pain, unspecified Status: Resolved (2) Paroxysmal atrial flutter Code(s): I48.92 - Unspecified atrial flutter Status: Resolved (3) Hx of six vessel coronary artery bypass graft Code(s): Z95.1 - Presence of aortocoronary bypass graft Status: Inactive (4) Tobacco use disorder, moderate, in early remission Code(s): F17.201 - Nicotine dependence, unspecified, in remission Status: Chronic (5) Nutrition, metabolism, and development symptoms Code(s): R63.8 - Other symptoms and signs concerning food and fluid intake Status: Acute - Assessment and Plan 52 yo male w/PMHx NH and LV aneurysm requiring 2 vessel CABG in December 01 and subsequent ECHO in March 2018 reported to show LVEF 45% and tobacco use in remission presents with intermittent burning left chest pain, nausea and diaphoresis x2 days. Troponin x1 <0.02 and EKG w/NSR and anteroseptal ST elevation. CXR showing increased cardiac silhouette and pulmonary vascular congestion. DDx: STEMI vs unstable angina vs pulmonary edema vs CHF exacerbation. Chest pain -Cardiology consulted due to significant cardiac history with FamHx -Telemetry -Continuous pulse ox -Supplemental O2 to titrate -Troponins negative x3 -ECHO w/LVEF 45%, mildly dilated LA, PAP 26.5 mmHg, and trace tricuspid regurg -BNP &TSH wnl Continue: -Atorvastatin 80 mg -Plavix 75 mg -ASA -Fenofibrate 40 mg -Metoprolol succinate ER 50 mg daily -Heparin 5000 units q8h -Advised lifestyle modifications and aggressive treatment of HLD Atrial Flutter -New onset -Cardiology consulted as above -Stress test today CHF -Lasix 40 mg daily Tobacco use in remission -Wellbutrin 150 mg FEN/GI/PPx -PO Fluids -Electrolytes wnl -Nutrition cardiac diet; sodium restriction 2g daily -GI: Protonix 40 mg daily -KCl 10 meq daily Dispo: 06/11 or 06/12 when cleared by Cardiology DW Drs. Trevizo and Alexi (1) Chest pain Qualifiers: Chest pain type: unspecified Qualified Code(s): R07.9 - Chest pain, unspecified
[2018-06-11 10:13] LABS: Hematocrit 40.8 % (39.0-51.0); Hemoglobin 13.9 gm/dL (13.0-17.0); Mean Corpuscular HGB Conc 34.2 % (32.0-36.0); Mean Corpuscular Hemoglobin 30.3 pg (27.0-34.0); Mean Corpuscular Volume 88.7 fL (80.0-100.0); Mean Platelet Volume 8.2 fL (7.0-11.0); Platelet Count 273 th/mm3 (150-450); Red Cell Distribution Width 14.9 % (11.6-17.2); White Blood Count 8.8 th/mm3 (4.0-11.0)
[2018-06-11 10:40] LABS: Calcium 8.5 mg/dL (8.5-10.1); Potassium 4.6 meq/L (3.5-5.1)
[2018-06-11] MEDS ORDERED: Ibuprofen 600 MG Tablet PO ONE (11:05)
[2018-06-11] MEDS ORDERED: Regadenoson Inj 0.4 MG/5 ML Syringe IV.PUSH ONE (14:49)
[2018-06-11 15:56] VITALS: BP 109/69; PULSE 80; RESP 20; TEMP 97.9; O2SAT 98
--- NOTE | 2018-06-11 15:58 | NM ---
EXAM DATE: 06/11/2018 3:50 PM EST AGE/SEX: 52 years / Male INDICATIONS:Coronary atherosclerosis. Myocardial infarction Left chest pain. CLINICAL DATA: This is the patient's initial encounter. Patient reports that signs and symptoms have been present for 2 days and indicates a pain score of 7/10. MEDICAL/SURGICAL HISTORY: Hypercholesterolemia. Hypertension. Atrial flutter. CABG. COMPARISON: [facility], FOREARM RIGHT (1VW), 07/25/2012. [facility], ELBOW RIGHT (1VW), 07/25/2012. . DOSE: 10.4 mCi Tc 99m Myoview at rest 32.1 mCi [id number] at stress 0.4 mg Lexiscan STRESS SYMPTOMS: None. EJECTION FRACTION: 40 % TECHNIQUE: The patient underwent pharmacologic stress with infusion of prescribed dose. Continuous ECG tracing was monitored during stress. Gated SPECT imaging was performed after stress and conventi onal SPECT imaging was performed at rest. The examination was performed on a SPECT/CT scanner, both attenuation and non-corrected datasets were reviewed. FINDINGS: Distribution: The maximum perfused segment at stress is in the lateral wall. Perfusion Study: Fixed defect is noted involving the cardiac apex suggesting LAD infarct. No reversib le defects are noted to suggest ischemia. Gated Study: There is septal and apical hypokinesis. The ejection fraction is calculated at 40%. RISK CATEGORY: Intermediate (1-3 % Annual Mortality Rate) CONCLUSION: 1. Fixed defect is noted involving the cardiac apex suggesting LAD infarct. 2. No reversible defects are noted to suggest ischemia. 3. Septal and apical hypokinesis with 40% left ventricular ejection fraction. Electronically signed by: Blaine Cox MD Board Certified Radiologist 06/11/2018 3:57 PM EST
--- NOTE | 2018-06-11 20:31 | P.PNCA ---
Subjective Interval history: No events overnight This morning had chest pressure relieved by nitro Telemetry showing normal sinus rhythm at the time Medications and Allergies Allergies Allergy/AdvReac Type Severity Reaction Status Date / Time No Known Allergies Allergy Verified 06/09/18 17:39 Home Medications Medication Instructions Recorded Confirmed Type atorvastatin 80 mg PO QPM 06/09/18 06/09/18 History bupropion HCl [Wellbutrin SR] 150 mg PO BID 06/09/18 06/09/18 History clopidogrel 75 mg PO BID 06/09/18 06/09/18 History fenofibrate 40 mg PO DAILY 06/09/18 06/09/18 History furosemide [Lasix] 40 mg PO DAILY 06/09/18 06/09/18 History lisinopril 10 mg PO DAILY 06/09/18 06/09/18 History metoprolol succinate 50 mg PO DAILY 06/09/18 06/09/18 History pantoprazole [Protonix] 40 mg PO DAILY 06/09/18 06/09/18 History potassium chloride 10 meq PO BID 06/09/18 06/09/18 History Physical Exam Vital signs: Vital Signs 06/10/18 23:59 06/11/18 00:00 06/11/18 04:00 Temperature 97.9 F Pulse Rate 71 70 Respiratory Rate 14 16 16 Blood Pressure 112/64 105/62 Pulse Oximetry 97 97 06/11/18 08:00 06/11/18 09:25 06/11/18 10:41 Temperature 98.1 F 98.4 F Pulse Rate 82 79 76 Respiratory Rate 16 16 Blood Pressure 134/74 114/62 Pulse Oximetry 98 95 06/11/18 11:32 06/11/18 12:00 06/11/18 15:54 Temperature 98.4 F 97.9 F Pulse Rate 84 80 Respiratory Rate 16 20 Blood Pressure 96/51 L 104/62 109/69 Pulse Oximetry 96 98 Intake & Output 06/11/18 06/11/18 06/12/18 06:59 18:59 06:59 Output Total 950 / 950 Balance -950 / -950 Output: Urine 950 / 950 Other: Date of Last Bowel Movement 06/10/18 06/10/18 Narrative: GENERAL: 52 yo male sitting at the edge of the bed in [facility]. SKIN: Warm and dry. No rash or lesions. CARDIOVASCULAR: Regular rate and rhythm without murmurs, gallops, or rubs. RESPIRATORY: Breath sounds equal bilaterally in all lung cosby. No accessory muscle use. GASTROINTESTINAL: Abdomen soft, non-tender, nondistended. +BS. MUSCULOSKELETAL: No cyanosis, or edema. Results 06/11/18 09:35 06/11/18 09:35 Cardiac Enzymes 06/09/18 06/10/18 06/10/18 Range/Units 19:00 02:10 08:42 AST 12 L (15-37) U/L Troponin I Less than 0.02 L Less than 0.02 L (0.02-0.05) ng/mL B-Natriuretic Peptide 70 (0-100) pg/mL Coagulation 06/09/18 Range/Units 19:00 B-Natriuretic Peptide 70 (0-100) pg/mL CBC 06/11/18 Range/Units 09:35 WBC 8.8 (4.0-11.0) th/mm3 RBC 4.60 (4.50-5.90) mil/mm3 Hgb 13.9 (13.0-17.0) gm/dL Hct 40.8 (39.0-51.0) % Plt Count 273 (150-450) th/mm3 Comprehensive Metabolic Panel 06/10/18 06/11/18 Range/Units 02:10 09:35 Sodium 141 138 (136-145) meq/L Potassium 4.3 4.6 (3.5-5.1) meq/L Chloride 108 H 107 (98-107) meq/L Carbon Dioxide 28.0 26.0 (21.0-32.0) meq/L BUN 16 13 (7-18) mg/dL Creatinine 1.13 1.08 (0.60-1.30) mg/dL Calcium 8.4 L 8.5 (8.5-10.1) mg/dL AST 12 L (15-37) U/L ALT 29 (12-78) U/L Alkaline Phosphatase 59 (45-117) U/L Total Protein 6.4 D (6.4-8.2) g/dL Albumin 3.3 L (3.4-5.0) g/dL Intake and Output 06/11/18 06/11/18 06/11/18 06:59 14:59 22:59 Output Total 950 / 950 Balance -950 / -950 Output: Urine 950 / 950 Other: Date of Last Bowel Movement 06/10/18 - Imaging and Cardiology Imaging: Impressions Myocardial Perfusion Scan Nuc Med 06/11/18 00:00 CONCLUSION: 1. Fixed defect is noted involving the cardiac apex suggesting LAD infarct. 2. No reversible defects are noted to suggest ischemia. 3. Septal and apical hypokinesis with 40% left ventricular ejection fraction. Assessment and Plan - Assessment (1) Hx of CABG Code(s): Z95.1 - Presence of aortocoronary bypass graft Status: Acute (2) Chest pain Code(s): R07.9 - Chest pain, unspecified Status: Resolved (3) Paroxysmal atrial flutter Code(s): I48.92 - Unspecified atrial flutter Status: Resolved - Plan 1. Atypical chest pain. Episode this morning more concerning as relieved by nitro Plan for stress test this afternoon 2. Atrial flutter, which appears to be new onset Patient unsure about Eliquis, appears he was not put on it by [facility] Con't Toprol XL CHADSVASc = 0-1 Con't on ASA Previous aneurysm repair with EF now 45%, less likely to form thrombus 3. Coronary artery disease with a history of coronary artery bypass graft x 2 ( 11/2017 at [place]). Told he was going to have 4 vessel bypass, but had 2 vessel bypass Most likely consideration of bypass of PDA and PLB, as well as 2 OMs, and only did PDA/OM, appears appropriate as LAD occluded 4. Previous LV aneurysm with repair (11/2017 at [place]). EF 45% with akinetic apex, but no aneurysm 5. Remote tobacco abuse. 6. If stress test negative for ischemia then plan on continuing medical management and discharge home If stress test positive then will need cardiac catheterization (2) Chest pain Qualifiers: Chest pain type: unspecified Qualified Code(s): R07.9 - Chest pain, unspecified
--- NOTE | 2018-06-12 13:43 | P.DS ---
Date of admission: 06/09/18 20:23 Primary care physician: Vandana Hollins MD Brief History from admission: 52 year old male w/PMHx UT and ventricular aneurysm requiring CABG in November 2017 and tobacco dependence in remission presents to ED with intermittent chest pain x2 days. Complains of a burning pain under left breast for past couple days. Occurs intermittently for a few minutes then spontaneously resolves. Pain at worst is 8/10 on pain scale. The pain will last 5 seconds to 5 minutes and is non radiating. Associated sxs include nausea and sweating/diaphoresis. Occurs at rest and with activity, but patient does not notice any correlation between the activity level and the pain. Friday night was very nauseous but had no chest pain. He has had some lightheadedness. Has noticed palpations with nausea on and off this past week. Is not the same pain as his UT, which was a burning pain in the middle of his epigastric area November 22 and was transferred to [place] for surgery due to the LV aneurysm. He needed a 4 CABG surgery, but only 2 vessels were done, cannot recall why, and no stents placed. The left ventricular aneurysm was repaired at that time. In March, ECHO showed EF 45%. Takes Plavix 75 daily, baby aspirin, and Lopressor daily. Does not take Eliquis. Took 3 baby aspirin today before coming into the ED. Has not had any nitroglycerin. PMHx: UT, bone fractures, possible GERD, denies HTN SurgHx: CABG 11/19/2017, tibial fracture, rectal tear surgery FMH: Mom CVD ( at 62) Social: former tobacco smoker. Quit in November. Formerly 2 ppd x 20 years. Denies any alcohol or drug use. 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 Lives at home with significant other. Has been active weeks ago riding bike 2 miles a day. Allergies: denies DS: Diagnosis - Discharge Diagnosis (1) Chest pain Status: Resolved (2) Paroxysmal atrial flutter Status: Resolved (3) Hx of six vessel coronary artery bypass graft Status: Inactive (4) Tobacco use disorder, moderate, in early remission Status: Chronic (5) Nutrition, metabolism, and development symptoms Status: Acute DS: Summary Hospital Course: 52 yo male w/PMHx UT and LV aneurysm requiring 2 vessel CABG in December 01 and subsequent ECHO in March 2018 reported to show LVEF 45% and tobacco use in remission admitted due to intermittent burning left chest pain, nausea and diaphoresis x2 days. Troponin negative x3. Pt was found to have intermittent atrial flutter, Cardiology services were consulted. Pt underwent a Stress Test and was discharged home on a stable condition with instructions to follow up as an outpatient. Chest pain - Time Spent with Patient Total time spent providing and/or coordinating discharge services: Less than 30 minutes - Quality: VTE Deep Vein Thrombosis/Pulmonary Embolism Present on Admission: No Exam Vital signs: Vital Signs 06/11/18 15:54 Temperature 97.9 F Pulse Rate 80 Respiratory Rate 20 Blood Pressure 109/69 Pulse Oximetry 98 Intake & Output 06/11/18 06/12/18 06/12/18 18:59 06:59 18:59 Output Total 950 / 950 Balance -950 / -950 Output: Urine 950 / 950 Other: Date of Last Bowel Movement 06/10/18 Narrative: GENERAL: 52 yo male sitting in bed in NAD SKIN: Warm and dry. No rash or lesions. CARDIOVASCULAR: Regular rate and rhythm without murmurs, gallops, or rubs. RESPIRATORY: Breath sounds equal bilaterally in all lung cosby. No accessory muscle use. GASTROINTESTINAL: Abdomen soft, non-tender, nondistended. +BS. MUSCULOSKELETAL: No cyanosis, or edema. BACK: Nontender without obvious deformity. Results Procedures completed during hospitalization: Echocardiogram, stresstest - Impressions ITS Impressions Chest X-Ray 06/09/18 18:41 CONCLUSION: 1. Poor inspiration. 2. Mildly prominent cardiac shadow and possible mild pulmonary vascular congestion or vascular crowding related to poor inspiration. Myocardial Perfusion Scan Nuc Med 06/11/18 00:00 CONCLUSION: 1. Fixed defect is noted involving the cardiac apex suggesting LAD infarct. 2. No reversible defects are noted to suggest ischemia. 3. Septal and apical hypokinesis with 40% left ventricular ejection fraction. Discharge Plan - Discharge Disposition Patient Disposition: 01 Discharge Home - Discharge Condition Condition: Stable - Discharge Order Discharge Orders: Discharge Order (Routine); Ordered 06/11/18 Ordered By: Zoltan Calixto R3 ED Use Only Admit Order (Routine); Ordered 06/09/18 Ordered By: Lia Wooten - Discharge Details Anticipated Discharge Date: 06/11/18 - Physicians Team Primary Care Provider: Vandana Hollins Attending Provider: Cm Trevizo Other Providers: [employer],Insurance ; Sridhar Malhotra MD
== END 2018-06-11 18:53 | disposition home or self-care (01) ==
LOC: NEDA 17:23 → NEPC 17:23 → NEPHCDU 22:04
PROVIDERS: ADMIT Family Medicine; ATTEND Family Medicine
CPT/HCPCS: 71010; 71045; 78452; 80048; 80053; 82550; 83520; 83880; 84443; 84484; 85025; 85027; 85610; 85730; 93005; 93017; 93308; 99285; A9502; G0378; J1644; J2785